=== PATIENT | male | born 1960 | race Caucasian/White ===

== ENCOUNTER 2018-03-22 00:58 | Emergency (ER) | payer OTHER, SELFPAY ==
[2018-03-22 01:03] VITALS: BP 129/67; PULSE 70; RESP 18; TEMP 36.8
[2018-03-22 01:07] VITALS: RESP 18
--- NOTE | 2018-03-22 01:53 | W.ED.GENAD ---
Discharge Plan Disposition Patient Disposition: HOME Condition: Good Discharge Details Chief Complaint: GenMedical Clinical Impression: Hip pain, right Reason For Visit: ADRIÁN Primary Care Provider: Christine Dey ED Provider: Vinicio Hyde Home Meds and New Rx's Prescriptions: Continue diclofenac sodium [Voltaren] 1 % gel 4 gm TP QID Qty: 100 RF: 1 ibuprofen 800 MG tablet 800 mg PO Q6H PRNRF: 0 clonazepam 1 MG tablet 2 mg PO PRN PRNQty: 0 RF: 0 pravastatin 40 MG tablet 40 mg PO DAILY RF: 0 metoprolol tartrate 100 MG tablet 100 mg PO BID RF: 0 multivitamin with minerals [Multiple Vitamin-Minerals] 1 EACH tablet 1 tab PO DAILY RF: 0 oxymorphone 5 MG tablet 5 mg PO Q4H PRNRF: 0 omeprazole 20 MG capsule,delayed release(DR/EC) 20 mg PO DAILY RF: 0 gabapentin 800 mg Tablet 800 mg PO TID RF: 0 hydrochlorothiazide 25 mg Tablet 25 mg PO DAILY RF: 0 oxycodone 5 mg Tablet 5 mg PO Q4H PRNRF: 0 Discharge Instructions Additional Instructions: Continue current medications and follow up at [facility] on Friday as planned. Return to ED for fever, redness, worsening pain. Referrals: [facility] [Provider Group] Christine Dey DO [Primary Care Provider] - Medical Decision Making MDM Narrative Medical decision making narrative: Patient here reporting worsening of his chronic pain. He is to go to [facility] for further testing Friday. He is on both oxymorphone and oxycodone in addition to ibuprofen and gabapentin. He has tried muscle relaxers, Lidoderm patches. He is also using Voltaren gel. Nothing seems to be helping. Tonight pain was so intense he came in by ambulance. I have discussed with him and significant other that given his chronic pain as well as his number of prescriptions including narcotics that I would not be able to send him home with anything. We did discuss acute treatment of pain here with IM Toradol and IM Dilaudid. This would at least give him some comfort over the next 6-8 hours. He was agreeable with this plan. Patient with enough relief of pain s/p IM meds that he is comfortable going home. Follow up at [facility] Friday as planned. Return to ED for fever, redness, worse pain. Medical Records Medical records reviewed: Yes I reviewed the patient's medical records. HPI - General Adult General Mode of arrival: EMS. Date/Time Provider Initiated Documentation: 03/22/18 01:52. Limitations to Documentation: no limitations. Information obtained by: patient and family. HPI Narrative: Patient presents to the ED by ambulance with acute exacerbation of chronic right hip pain. Patient is being followed by primary care in [place] and here as well as orthopedics at [facility]. He has had worsening bilateral hip pain right greater than left over the last 4-5 months. He has had injections. He is on both oxymorphone and oxycodone at this point. He is also on ibuprofen, gabapentin and Voltaren gel. Over the last few days the pain is got into the knee. There has been no fever, chills, erythema, rashes. There has been no new injuries. Pain woke him up tonight and despite taking his medications did not get better. He therefore came in to ED by ambulance for evaluation. Related Data Home Medications Medication Instructions Recorded Confirmed metoprolol tartrate 100 mg PO BID 10/01/14 03/22/18 multivitamin with minerals 1 tab PO DAILY 10/01/14 03/22/18 [Multiple Vitamin-Minerals] oxymorphone 5 mg PO Q4H PRN 10/01/14 03/22/18 pravastatin 40 mg PO DAILY 10/01/14 03/22/18 omeprazole 20 mg PO DAILY 11/04/14 03/22/18 ibuprofen 800 mg PO Q6H PRN tab-cap 09/19/16 03/22/18 clonazepam 2 mg PO PRN PRN #0 tab-cap 02/13/18 03/22/18 gabapentin 800 mg PO TID 03/22/18 03/22/18 hydrochlorothiazide 25 mg PO DAILY 03/22/18 03/22/18 oxycodone 5 mg PO Q4H PRN 03/22/18 03/22/18 Previous Rx's Medication Instructions Recorded diclofenac 1 % topical gel 4 gm TP QID #100 gm 03/19/18 Allergies Allergy/AdvReac Type Severity Reaction Status Date / Time No Known Allergies Allergy Unverified 03/22/18 01:10 General Stated Complaint: GenMedical ROSMERY: 4 Review of Systems Constitutional Denies chills, Denies fever(s) and Denies headache(s) ENT Denies headache(s) Cardiovascular Denies chest pain, Denies syncope and Denies dyspnea Respiratory Denies cough and Denies dyspnea Gastrointestinal Denies abdominal pain and Denies vomiting Musculoskeletal Reports back pain, Reports arthralgias and Denies numbness Integumentary/Breasts Denies erythema and Denies rash Neurologic Denies syncope, Denies headache(s), Denies focal weakness and Denies numbness PFSH Family History Mother Diabetes Heart failure Dementia Father No problems noted. Sister Diabetes Sister No problems noted. Brother Mental disorder Brother No problems noted. Medical History Chronic back pain HLD (hyperlipidemia) HTN (hypertension) Social History adopted: No foster care: No current occupational status: retired pets and animals: Yes pets and animals: cat(s), dog(s) and turtle(s) Smoking/Tobacco Use Status: Current every day tobacco type: cigars per week: 4 alcohol intake: current alcohol intake frequency: 0-2 drinks per day substance use type: does not use seatbelt use: always helmet use: No water heater temp set < 120 deg: Yes working smoke detector in home: Yes fire extinguisher in home: Yes carbon monox detector in home: Yes firearms in home: Yes firearms unloaded and locked: Yes victim of physical abuse: No victim of emotional abuse: No victim of sexual abuse: No Surgical History Cholecystectomy (~1979) Trigger Finger release (10/11/16) back fusion (11/09/12) back surgery (11/05/05) back surgery (11/17/07) back surgery (11/08/09) Exam Const General: cooperative and no acute distress Nutritional Appearance: obese Orientation: alert and oriented x3 Cardio Pulses: normal peripheral pulses Skin General skin exam: no erythema Rashes: no rashes Neuro General: alert, oriented x3, moves all extremities, no focal motor deficits and CN's II-XI intact bilaterally Sensory Exam: no sensory deficits noted Extrem General: normal to inspection and no edema Right lower extremity: normal to inspection, hip/thigh Details: abnormal ROM Details: pain with active ROM during and pain with passive ROM during and knee Details: normal to inspection and normal ROM Course Vital Signs Temperature 98.3 F 03/22/18 01:03 Pulse 70 03/22/18 01:03 Respiratory Rate 03/22/18 01:03 Blood Pressure 129/67 03/22/18 01:03 Temperature 98.3 F 03/22/18 01:03 Pulse 70 03/22/18 01:03 Respiratory Rate 03/22/18 01:07 Blood Pressure 129/67 03/22/18 01:03
--- NOTE | 2018-03-22 02:13 | ED.GENADUL_ITS ---
Discharge Plan Disposition Patient Disposition: HOME Condition: Good Discharge Details Chief Complaint: GenMedical Clinical Impression: Hip pain, right Reason For Visit: ADRIÁN Primary Care Provider: Christine Dey ED Provider: Vinicio Hyde Home Meds and New Rx's Prescriptions: Continue diclofenac sodium [Voltaren] 1 % gel 4 gm TP QID Qty: 100 RF: 1 ibuprofen 800 MG tablet 800 mg PO Q6H PRNRF: 0 clonazepam 1 MG tablet 2 mg PO PRN PRNQty: 0 RF: 0 pravastatin 40 MG tablet 40 mg PO DAILY RF: 0 metoprolol tartrate 100 MG tablet 100 mg PO BID RF: 0 multivitamin with minerals [Multiple Vitamin-Minerals] 1 EACH tablet 1 tab PO DAILY RF: 0 oxymorphone 5 MG tablet 5 mg PO Q4H PRNRF: 0 omeprazole 20 MG capsule,delayed release(DR/EC) 20 mg PO DAILY RF: 0 gabapentin 800 mg Tablet 800 mg PO TID RF: 0 hydrochlorothiazide 25 mg Tablet 25 mg PO DAILY RF: 0 oxycodone 5 mg Tablet 5 mg PO Q4H PRNRF: 0 Discharge Instructions Additional Instructions: Continue current medications and follow up at [facility] on Friday as planned. Return to ED for fever, redness, worsening pain. Referrals: [facility] [Provider Group] Christine Dey DO [Primary Care Provider] - Medical Decision Making MDM Narrative Medical decision making narrative: Patient here reporting worsening of his chronic pain. He is to go to [facility] for further testing Friday. He is on both oxymorphone and oxycodone in addition to ibuprofen and gabapentin. He has tried muscle relaxers, Lidoderm patches. He is also using Voltaren gel. Nothing seems to be helping. Tonight pain was so intense he came in by ambulance. I have discussed with him and significant other that given his chronic pain as well as his number of prescriptions including narcotics that I would not be able to send him home with anything. We did discuss acute treatment of pain here with IM Toradol and IM Dilaudid. This would at least give him some comfort over the next 6-8 hours. He was agreeable with this plan. Patient with enough relief of pain s/p IM meds that he is comfortable going home. Follow up at [facility] Friday as planned. Return to ED for fever, redness, worse pain. Medical Records Medical records reviewed: Yes I reviewed the patient's medical records. HPI - General Adult General Mode of arrival: EMS . Date/Time Provider Initiated Documentation: 03/22/18 01:52 . Limitations to Documentation: no limitations . Information obtained by: patient and family . HPI Narrative: Patient presents to the ED by ambulance with acute exacerbation of chronic right hip pain. Patient is being followed by primary care in [place] and here as well as orthopedics at [facility]. He has had worsening bilateral hip pain right greater than left over the last 4-5 months. He has had injections. He is on both oxymorphone and oxycodone at this point. He is also on ibuprofen, gabapentin and Voltaren gel. Over the last few days the pain is got into the knee. There has been no fever, chills, erythema, rashes. There has been no new injuries. Pain woke him up tonight and despite taking his medications did not get better. He therefore came in to ED by ambulance for evaluation. Related Data Home Medications Medication Instructions Recorded Confirmed metoprolol tartrate 100 mg PO BID 10/01/14 03/22/18 multivitamin with minerals 1 tab PO DAILY 10/01/14 03/22/18 [Multiple Vitamin-Minerals] oxymorphone 5 mg PO Q4H PRN 10/01/14 03/22/18 pravastatin 40 mg PO DAILY 10/01/14 03/22/18 omeprazole 20 mg PO DAILY 11/04/14 03/22/18 ibuprofen 800 mg PO Q6H PRN tab-cap 09/19/16 03/22/18 clonazepam 2 mg PO PRN PRN #0 tab-cap 02/13/18 03/22/18 gabapentin 800 mg PO TID 03/22/18 03/22/18 hydrochlorothiazide 25 mg PO DAILY 03/22/18 03/22/18 oxycodone 5 mg PO Q4H PRN 03/22/18 03/22/18 Previous Rx's Medication Instructions Recorded diclofenac 1 % topical gel 4 gm TP QID #100 gm 03/19/18 Allergies Allergy/AdvReac Type Severity Reaction Status Date / Time No Known Allergies Allergy Unverified 03/22/18 01:10 General Stated Complaint: GenMedical ROSMERY: 4 Review of Systems Constitutional Denies chills, Denies fever(s) and Denies headache(s) ENT Denies headache(s) Cardiovascular Denies chest pain, Denies syncope and Denies dyspnea Respiratory Denies cough and Denies dyspnea Gastrointestinal Denies abdominal pain and Denies vomiting Musculoskeletal Reports back pain, Reports arthralgias and Denies numbness Integumentary/Breasts Denies erythema and Denies rash Neurologic Denies syncope, Denies headache(s), Denies focal weakness and Denies numbness PFSH Family History Mother Diabetes Heart failure Dementia Father No problems noted. Sister Diabetes Sister No problems noted. Brother Mental disorder Brother No problems noted. Medical History Chronic back pain HLD (hyperlipidemia) HTN (hypertension) Social History adopted: No foster care: No current occupational status: retired pets and animals: Yes pets and animals: cat(s), dog(s) and turtle(s) Smoking/Tobacco Use Status: Current every day tobacco type: cigars per week: 4 alcohol intake: current alcohol intake frequency: 0-2 drinks per day substance use type: does not use seatbelt use: always helmet use: No water heater temp set < 120 deg: Yes working smoke detector in home: Yes fire extinguisher in home: Yes carbon monox detector in home: Yes firearms in home: Yes firearms unloaded and locked: Yes victim of physical abuse: No victim of emotional abuse: No victim of sexual abuse: No Surgical History Cholecystectomy (~1979) Trigger Finger release (10/11/16) back fusion (11/09/12) back surgery (11/05/05) back surgery (11/17/07) back surgery (11/08/09) Exam Const General: cooperative and no acute distress Nutritional Appearance: obese Orientation: alert and oriented x3 Cardio Pulses: normal peripheral pulses Skin General skin exam: no erythema Rashes: no rashes Neuro General: alert, oriented x3, moves all extremities, no focal motor deficits and CN's II-XI intact bilaterally Sensory Exam: no sensory deficits noted Extrem General: normal to inspection and no edema Right lower extremity: normal to inspection, hip/thigh Details: abnormal ROM Details: pain with active ROM during and pain with passive ROM during and knee Details: normal to inspection and normal ROM Course Vital Signs Temperature 98.3 F 03/22/18 01:03 Pulse 70 03/22/18 01:03 Respiratory Rate 03/22/18 01:03 Blood Pressure 129/67 03/22/18 01:03 Temperature 98.3 F 03/22/18 01:03 Pulse 70 03/22/18 01:03 Respiratory Rate 03/22/18 01:07 Blood Pressure 129/67 03/22/18 01:03
[2018-03-22] MEDS: HYDROmorphone 2 MG/ML VIAL 1 MG IM (02:19)
[2018-03-22] MEDS: Ketorolac 30 MG/ML VIAL IM (02:20)
== END 2018-03-22 03:09 | disposition home or self-care (01) ==
LOC: ER 03:13
PROVIDERS: Emergency Provider Emergency Medicine; PCP Student in an Organized Health Care Education/Training Program
DX: M25.551 Pain in right hip (principal); G89.29 Other chronic pain; I10 Essential (primary) hypertension
CPT/HCPCS: 96372; 99284; J1885

== ENCOUNTER 2018-08-24 10:10 | Outpatient (CLI) | payer OTHER, SELFPAY ==
[2018-08-24 11:27] LABS: ALT 25 U/L (12-78); AST 20 U/L (15-37); Alkaline Phosphatase 57 U/L (46-116); BUN 15 mg/dL (7-18); Bilirubin, Total 0.4 mg/dL (0.2-1.0); CREATININE 1.09 mg/dL (0.70-1.30); Calcium 8.9 mg/dL (8.5-10.1); Chloride 101 mmol/L (98-107); Cholesterol 170 mg/dL (50-200); Glucose 91 mg/dL (70-100); HDL Cholesterol 36 mg/dL (40-60); LDL CHOLESTEROL 110 mg/dL (<100); Sodium 139 mmol/L (136-145); Total Protein 7.6 g/dL (6.4-8.2); Triglyceride 163 mg/dL (30-150)
== END 2018-08-24 10:30 ==
PROVIDERS: PCP Student in an Organized Health Care Education/Training Program; Visit Provider Family Medicine
DX: E78.5 Hyperlipidemia, unspecified (principal); I10 Essential (primary) hypertension
CPT/HCPCS: 36415; 80053; 80061; 83721

== ENCOUNTER 2019-01-15 10:12 | Outpatient (CLI) | payer OTHER, SELFPAY ==
--- NOTE | 2019-01-15 09:03 | DI.RAD_ITS ---
SYMPTOMS/DIAGNOSIS: BILATERAL HIP PAIN BILATERAL HIPS AND PELVIS: Comparison is 09/25/17. The patient is now status post right total hip replacement. The orthopedic hardware appears in good position. The left hip is well maintained and stable. Postsurgical changes are seen in the lower lumbar spine. The sacroiliac joints and symphysis pubis are intact. The soft tissues are unremarkable. IMPRESSION: No acute abnormality.
== END 2019-01-15 10:32 ==
PROVIDERS: Referring Provider Student in an Organized Health Care Education/Training Program; Visit Provider Student in an Organized Health Care Education/Training Program
DX: M25.551 Pain in right hip (principal); M25.552 Pain in left hip; Z96.641 Presence of right artificial hip joint; M87.052 Idiopathic aseptic necrosis of left femur; I10 Essential (primary) hypertension
CPT/HCPCS: 20610; 73521; 99203; 99214; J1040

== ENCOUNTER → 2019-02-19 08:57 | Outpatient (BNVA) | payer OTHER, SELFPAY | PROVIDERS: PCP Student in an Organized Health Care Education/Training Program; Visit Provider Student in an Organized Health Care Education/Training Program | DX: M25.551 Pain in right hip (principal); M70.61 Trochanteric bursitis, right hip; M25.552 Pain in left hip; Z98.890 Other specified postprocedural states; I10 Essential (primary) hypertension | CPT/HCPCS: 99213 ==

== ENCOUNTER 2019-03-12 02:44 | Outpatient (CLI) | payer OTHER, SELFPAY ==
--- NOTE | 2019-03-12 09:53 | DI.CT_ITS ---
SYMPTOMS/DIAGNOSIS: ANTERIOR GROIN PAIN AFTER RIGHT TOTAL HIP ARTHROPLASTY, Z79.[address]: CT examination of the pelvis was performed utilizing multislice acquisition and multiplanar reconstruction. Note is made of Nickerson rods in place at L4-5. No pelvic mass or adenopathy. Unremarkable appearance of the appendix. No soft tissue abscess or mass identified. Total hip joint replacement noted in position on the right. Components appear well seated. No CT evidence of loosening or other significant process.
--- NOTE | 2019-03-12 09:53 | DI.NM_ITS ---
SYMPTOMS/DIAGNOSIS: ANTERIOR GROIN PAIN S/P RIGHT TOTAL HIP ARTHROPLASTY, Z96.641 THREE-PHASE BONE SCAN: Three-phase bone scan was performed with intravenous infusion of 25.3 mCi of technetium 99 labelled methylene diphosphonate. Whole body imaging shows mildly increased uptake over the lumbar region posteriorly at what appears to be the L4-5 level, corresponding to Nickerson rods at this level. There is a total hip joint replacement on the right and there is minimally increased uptake adjacent to the femoral and acetabular components. No significant focal increase in uptake to suggest loosening or infection. CONCLUSION: Essentially negative bone scan as described above.
== END 2019-03-12 03:04 ==
PROVIDERS: PCP Student in an Organized Health Care Education/Training Program; Visit Provider Student in an Organized Health Care Education/Training Program
DX: Z96.641 Presence of right artificial hip joint (principal); R10.31 Right lower quadrant pain
CPT/HCPCS: 73700; 78315

== ENCOUNTER 2019-03-22 09:23 | Outpatient (CLI) | payer OTHER, SELFPAY ==
[2019-03-22 11:07] LABS: C-Reactive Protein 0.24 mg/dL (0.0-0.3); ESR 12 mm/hr (1-20)
== END 2019-03-22 09:43 ==
PROVIDERS: PCP Student in an Organized Health Care Education/Training Program; Visit Provider Student in an Organized Health Care Education/Training Program
DX: Z96.641 Presence of right artificial hip joint (principal); T84.84XA Pain due to internal orthopedic prosthetic devices, implants and grafts, initial encounter; I10 Essential (primary) hypertension
CPT/HCPCS: 36415; 85652; 99213; 86140

== ENCOUNTER → 2019-06-28 08:20 | Outpatient (BNVA) | payer OTHER, SELFPAY | PROVIDERS: PCP Student in an Organized Health Care Education/Training Program; Referring Provider Student in an Organized Health Care Education/Training Program; Visit Provider Student in an Organized Health Care Education/Training Program | DX: Z96.642 Presence of left artificial hip joint (principal); T84.84XS Pain due to internal orthopedic prosthetic devices, implants and grafts, sequela; M16.12 Unilateral primary osteoarthritis, left hip | CPT/HCPCS: 99213 ==

== ENCOUNTER 2019-07-22 00:51 | Outpatient (CLI) | payer OTHER, SELFPAY ==
--- NOTE | 2019-07-22 14:36 | DI.RAD_ITS ---
EXAM: RF JOINT INJECTION FLUORO GUID CLINICAL HISTORY: LT HIP PAIN, M25.552, LT HIP INJECTION. TECHNIQUE: 2D and realtime digital imaging was performed. COMPARISON: No exams were available for comparison FINDINGS: Fluoroscopy was provided for Dr. Barlow for guidance while performing a right hip injection. Carlos lucas see procedure note for details. Fluoro time: 1.0 second
--- NOTE | 2019-07-22 14:43 | W.PROCNOTE ---
Date of service: 07/22/19 Time of Service: 14:43 Procedure Note Date of procedure: 07/22/19 Procedure: Left Hip Injection with Fluoroscopic Guidance Surgeon/Proceduralist/Physician: Ignacio Barlow Procedure Diagnosis: Left Hip Osteoarthritis Procedure Indications: Subhash has had persistent pain of the LEFT hip and groin. Noninvasive measures have been tried. To serve as both diagnostic and therapeutic, an injection under fluoroscopy was recommended. I had discussed the risks of the procedure and the patient elected to proceed. Procedure Description: Subhash was greeted in the flouroscopy room. The correct side was identified and the consent was reviewed with the patient and signed. The patient was then placed in the supine position on the fluoroscopy table. The LEFT hip was then prepped with Chloraprep. The anterolateral injection starting point was identiifed by bony landmarks and fluoroscopy. The skin and soft tissue in the tract of the injection was anesthetized with 1% Lidocaine. A spinal needle was then inserted deep into the hip joint at the level of the lateral femoral neck under fluoroscopic guidance. A small amount of Omnipaque solution was injected to confirm intraarticular placement. Once confirmed, the hip was injected with 6cc of 0.5% Bupivicaine and 80mg of Depo-Medrol. A bandaid was placed on the injection site. The patient tolerated the procedure well and noted improvement in pre-injection pain.
[2019-07-22] MEDS: Omnipaque 300 MG/ML 10 ML BTL IJ (14:45)
[2019-07-22] MEDS: methylPREDNISolone ACETATE 80 MG/ML VIAL IM (14:46)
[2019-07-22] MEDS: Bupivacaine 0.5% Pres-Free 10 ML VIAL 6 ML IJ (14:46)
== END 2019-07-22 01:11 ==
PROVIDERS: PCP Student in an Organized Health Care Education/Training Program; Visit Provider Student in an Organized Health Care Education/Training Program
DX: M25.552 Pain in left hip (principal); M16.12 Unilateral primary osteoarthritis, left hip
CPT/HCPCS: 20610; 77002; J1040

== ENCOUNTER 2019-08-20 03:37 | Outpatient (CLI) | payer OTHER, SELFPAY ==
--- NOTE | 2019-08-20 09:51 | DI.RAD_ITS ---
EXAM: XR HIP RT COMPLETE AND AP PELVIS INDICATION: TROCHANTERIC BURSITIS RT HIP, M70.61. COMPARISON: XR hip pelvis adult Bl from 01/15/2019 TECHNIQUE: 2D digital imaging was performed. FINDINGS: There are stable postsurgical changes of a right total hip replacement. There is no evidence of hard sanchez failure. The bones are intact. Postsurgical changes are seen in the lower lumbar spine. The s oft tissues are unremarkable.
== END 2019-08-20 03:57 ==
PROVIDERS: PCP Student in an Organized Health Care Education/Training Program; Visit Provider Family Medicine
DX: M70.61 Trochanteric bursitis, right hip (principal); Z96.641 Presence of right artificial hip joint
CPT/HCPCS: 73502

== ENCOUNTER → 2019-09-03 07:53 | Outpatient (BNVA) | payer OTHER, SELFPAY | PROVIDERS: PCP Student in an Organized Health Care Education/Training Program; Referring Provider Student in an Organized Health Care Education/Training Program; Visit Provider Student in an Organized Health Care Education/Training Program | DX: M16.12 Unilateral primary osteoarthritis, left hip (principal); T84.84XS Pain due to internal orthopedic prosthetic devices, implants and grafts, sequela; Z96.643 Presence of artificial hip joint, bilateral; Z98.890 Other specified postprocedural states; I10 Essential (primary) hypertension | CPT/HCPCS: 99212; 99213 ==

== ENCOUNTER → 2019-11-15 08:29 | Outpatient (BNVA) | payer OTHER, SELFPAY | PROVIDERS: PCP Student in an Organized Health Care Education/Training Program; Referring Provider Student in an Organized Health Care Education/Training Program; Visit Provider Student in an Organized Health Care Education/Training Program | DX: M16.12 Unilateral primary osteoarthritis, left hip (principal); T84.84XS Pain due to internal orthopedic prosthetic devices, implants and grafts, sequela; Z96.642 Presence of left artificial hip joint; M87.052 Idiopathic aseptic necrosis of left femur; I10 Essential (primary) hypertension | CPT/HCPCS: 99213 ==

== ENCOUNTER 2019-12-23 11:06 | Outpatient (CLI) | payer OTHER, SELFPAY ==
--- NOTE | 2019-12-23 10:50 | DI.RAD_ITS ---
EXAM: XR PELVIS AP CLINICAL HISTORY: PRE OP. TECHNIQUE: 2D digital imaging was performed. COMPARISON: CR XR hip pelvis adult Bl from 01/15/2019 CR XR HIP RT COMPLETE AP PELVIS from 08/20/2019 FINDINGS: A right total hip prosthesis is again noted. There are degenerative changes of the left hip with vivi nt space narrowing, periarticular sclerosis and subchondral cysts in the superior acetabulum. IMPRESSION: Moderate degenerative changes of the left hip. Unremarkable right hip prosthesis.. DATA REPOSITORY: RADIATION DOSE DELIVERED:
== END 2019-12-23 11:26 ==
PROVIDERS: PCP Student in an Organized Health Care Education/Training Program; Referring Provider Student in an Organized Health Care Education/Training Program; Visit Provider Physician Assistant
DX: M16.12 Unilateral primary osteoarthritis, left hip (principal); Z96.641 Presence of right artificial hip joint; Z01.818 Encounter for other preprocedural examination
CPT/HCPCS: 72170

== ENCOUNTER 2019-12-31 01:39 | Outpatient (CLI) | payer OTHER, SELFPAY ==
[2019-12-31 10:07] LABS: HCT 41.5 % (40.0-50.0); HGB 14.4 g/dL (13.5-17.5); Mean Corp. HGB Concentration 34.7 g/dL (32.0-36.0); Mean Corpuscular Hemoglobin 31.4 pg (27.0-33.0); Mean Corpuscular Volume 90.6 fL (80-95); Platelet Count 197 x1000/uL (130-400); RBC 4.58 m/cumm (4.50-6.00); RBC Distribution Width 12.3 % (11.8-14.1); White Blood Cell Count 7.35 k/cumm (4.4-10.8)
[2019-12-31 11:07] LABS: Anion Gap 9.5 mmol/L (3-11); BUN 14 mg/dL (7-18); CO2 24.5 mmol/L (21.0-32.0); Calcium 9.2 mg/dL (8.5-10.1); Chloride 101 mmol/L (98-107); Glucose 88 mg/dL (74-106); Potassium 4.5 mmol/L (3.5-5.1); Sodium 135 mmol/L (136-145)
[2019-12-31 22:41] LABS: COVID-19 RT-PCR UVMMC Result Negative (Negative)
== END 2019-12-31 01:59 ==
PROVIDERS: PCP Student in an Organized Health Care Education/Training Program; Visit Provider Student in an Organized Health Care Education/Training Program
DX: M25.551 Pain in right hip (principal); M16.12 Unilateral primary osteoarthritis, left hip; Z01.818 Encounter for other preprocedural examination; Z01.812 Encounter for preprocedural laboratory examination; Z03.818 Encounter for observation for suspected exposure to other biological agents ruled out
CPT/HCPCS: 36415; 80048; 85027; 86850; 86900; 86901; U0003

== ENCOUNTER 2020-01-04 06:07 | Observation (INO) | payer OTHER, SELFPAY ==
[2020-01-04] VITALS (13 sets, daily range): BP systolic 89–129; BP diastolic 59–78; PULSE 55–71; RESP 11–18; TEMP 35.6–36.7; O2SAT 93–99
[2020-01-04] MEDS: Celecoxib 200 MG CAP 400 MG PO (06:43)
[2020-01-04] MEDS: Acetaminophen 500 MG TAB 1000 MG PO ×3 (06:44→20:02)
[2020-01-04] MEDS: Lactated Ringers 1,000 ML 80 ML IV ×2 (07:00→12:16)
[2020-01-04] MEDS: ceFAZolin 2 GM/50 ML BAG IVPB (08:13)
--- NOTE | 2020-01-04 08:15 | DI.RAD_ITS ---
EXAM: XR HIP LT IN OR CLINICAL HISTORY: DJD right hip TECHNIQUE: 2D and realtime digital imaging was performed. CONTRAST MATERIAL: Refer to procedure report. COMPARISON: CR XR PELVIS AP from 12/23/2019 FINDINGS: Fluoroscopy was provided for Dr. Barlow during the performance of a placement of a left hip replac ement. Please refer to the procedure report for complete details. Fluoro time: 37.8 seconds IMPRESSION: RADIATION DOSE DELIVERED:
[2020-01-04] MEDS: Ketorolac 30 MG/ML VIAL (09:31)
[2020-01-04] MEDS: Bupivacaine 0.25% Pres-Free 30 ML VIAL (09:32)
[2020-01-04] MEDS: fentaNYL 100 MCG/2 ML VIAL IVP ×2 (10:51→11:08)
[2020-01-04] MEDS: oxyCODONE 5 MG TAB PO ×2 (12:15→15:38)
--- NOTE | 2020-01-04 13:37 | NUR.NOTE ---
Patient A&Ox 3. Pt. vitals stable. Orientated to room. See shift assessment. Continue to monitor.
[2020-01-04] MEDS: Gabapentin 400 MG CAP 800 MG PO ×2 (13:50→20:01)
[2020-01-04] MEDS: ceFAZolin 1 GM/50 ML BAG IVPB ×2 (13:50→21:48)
--- NOTE | 2020-01-04 15:11 | W.PM.OP ---
Date of service: 01/04/20 Time of Service: 10:11 Operative Note Operative Note DATE OF PROCEDURE: 01/04/20 PRE-OP DIAGNOSIS: Left Hip Osteoarthritis POST-OP DIAGNOSIS: same PROCEDURE: Left Anterior Total Hip Arthroplasty SURGEON: Ignacio Barlow OPERATION MANAGER: Dalia Seth OPERATION MANAGER: Bryan Cruz ANESTHESIA: spinal ESTIMATED BLOOD LOSS: 400 PATHOLOGY: none sent TOURNIQUET TIME: 0 COMPLICATIONS: None Patient was transported to: PACU Patient's condition: stable Implants: 1. Depuy Hamlin Acetabular Component, 52mm 2. Depuy Acetabular Liner, [id number] 3. Depuy Corail High Offset Femoral Stem, Size 9 4. Depuy Altrx Ceramic Femoral Head, Size 32+1mm Indications: I have seen Subhash in clinic for symptoms of hip arthritis, confirmed with radiographic findings. Subhash has exhausted nonoperative methods and was having significant limitations in daily function and desired better function and less pain. I discussed the technical details of a hip replacement. I explained the risks of the procedure to include, but not limited to, bleeding, infection, pain, stiffness, fracture, damage to nerves and vessels, damage to muscles and tendons, loosening, instability, leg length inequality, need for repeat procedure, blood clot and cardiopulmonary demise. Despite these risks, Subhash elected to proceed. Findings: There was some chondromalacia of the superior femoral head. The bone of the head was soft and penetrable with a freer elevator. Procedure Description: Subhash was greeted in the preoperative holding area where the correct side was identified and marked. The consent was reviewed with the patient and signed. The history and physical was updated. All questions were answered. Subhash was taken back to the operating room. A spinal anesthestic was then administered. The patient was placed into the supine position on the operating room table. The patient was then positioned onto the ARCH table. Both feet were wrapped with Webrill cotton wrap along with Coban. The feet were placed in specialized boots for the ARCH table, well seated within the boot and secured. SCDs were applied. The patient was then slid down onto a peroneal post and the nonoperative leg was secured in a leg ellis attached to the table. The operative side was placed into the ARCH table attachment and bed height and positioning was secured. A preoperative AP pelvis was obtained to serve as a reference for determining leg lengths. Prophylactic antibiotics in the form of Cefazolin were administered. 1g of Tranxemic Acid was given intravenously within 30 minutes of incision. The left leg was then prepped with Chloraprep and draped in a standard fashion. A second prep with Chloraprep was performed prior to placement of a shower-curtain type drape with Iodine impregnated skin protection. A timeout to confirm correct identity, side and site, procedure, allergies, anesthesia, and medical concerns was performed. An obliquely oriented incision was made starting lateral to the ASIS and running distal over the Tensor Fascia Ana (TFL) muscle belly toward the fibular head, approximately 10cm. The skin and soft tissue was dissected sharply, through Amando?s fascia, and to the fascia of the TFL. With the fascia and superior border of the IT band identified, the fascia was incised with a new knife just above any perforators from the IT band. The TFL muscle belly was bluntly dissected away from the fascia and moved laterally. The fat between TFL and rectus was identified to ensure the dissection was not within the TFL. Blunt dissection created space between abductors and the capsule and retractor was placed over the lateral femoral neck. The fibers of the rectus femoris tendon were identified and these were freed from the anterior capsule. A second cobra retractor was placed around the medial femoral neck. The TFL was further retracted laterally to show the deep fascia. Careful dissection through this layer identified three main crossing vessels of the lateral femoral circumflex. These were cauterized in multiple locations and then cut without any noticeable bleeding. The TFL was further released bluntly from the deep fascia to expose anterior hip capsule and fat The Diego orthopaedic retractor was then placed beneath the TFL and against sartorius and medial soft tissues to protect and retract the soft tissues. A T-capsulotomy was then performed starting at the superior lateral acetabulum and moving distally to the intertrochanteric ridge. These capsular flaps were tagged with a No. 1 Ethibond and elevated from within. The capsular flaps were released to the shoulder of the lateral neck and to the lesser trochanter to give excellent visualization of the proximal femur. A neck osteotomy was performed using an oscillating saw based on preoperative templates. This cut started in the shoulder and of the lateral neck and exited medially. The saw was at all times directed medially to avoid injury to the greater trochanter. 6cm of traction was applied to the leg and the osteotomy opened. The femoral head was removed with a corkscrew, making sure to protect the TFL on its exit. This was measured on the back table to determing the starting reamer size. Portions of the rectus obscuring visualization were minimally elevated off the superior acetabulum. An anterior retractor was placed over the anterior wall between capsule and labrum and attached to the Gripper retraction system. A posterior retractor was placed similarly. This provided excellent visualization. The contents of the cotyloid fossa were removed with electrocautery and the labrum was removed with a knife. There was a notable floor osteophyte. Acetabular reaming began with a 48mm reamer. This first reaming was directed anterior to posterior and medial to get down to the true floor. This was inspected and reamed until the true floor was reached. The anterior retractor was then released and entry and exit was provided by traction on the capsular flaps. I then reamed sequentially up to a 52mm reamer where good fit was obtained. The larger reamers were oriented based on anatomical reference of the anterior and lateral lópez to ensure proper abduction and anteversion. Positioning and size was confirmed with the fluoroscopy. A 52mm Depuy Hamlin acetabular component was selected. The acetabulum was reamed around the periphery with the selected acetabular size to prevent a rim fit. The deep tissues were irrigated. The acetabular component was then impacted in a position of about 40-45 degrees of abduction and 15-20 degrees of anteversion, using the patient?s anatomy as the ultimate landmark. Fluoroscopy was used to confirm this. There was excellent advanced solutions architect of the acetabular component and the inserting handle was removed. The acetabular liner, Depuy [id number] polyethylene liner, was inserted and lined up with the tines of the acetabular component. There was no soft tissue interposition. The liner was then impacted into position and confirmed to be well-seated. A portion of the lois-articular cocktail was then injected around the acetabulum into the capsule and periosteum. This cocktail consisted of 50cc of 0.25% Bupivicaine and 20cc of Exparel, expanded to a total of 120cc. Traction was released from the femur. The leg was rotated to 120 degrees. Any remaining medial capsule was released until the lesser trochanter was easily palpable. A Nur retractor was placed medially. The lateral capsule was further released into the shoulder to allow access to the greater trochanter. A Nur retractor was placed over the greater trochanter which allowed the trochanter to flip in front of the capsule for excellent exposure. The leg was brought down into maximal extension and 20 degrees of adduction while ensuring there was no impingement on the acetabulum. Any remnant capsule within the trochanter was released. Piriformis and obturator externis were identified and protected. There was excellent access to the proximal femur. The lateral neck remnant was removed with a rongeur. A blunt canal probe was used to identify the canal and trajectory for later broaching. A box osteotome initiated the broach course. A small curved rasp and a curved curette were used to work laterally. Broaching then began with a size 8 Corail broach. This was inserted manually around the trochanter and into the canal before mallet blows. The broach was seated to a few millimeters below the cut level based on the neck cut and the preoperative template. Sequential broaching was continued with the WEPOWER Eco pneumatic broaching device until a tight fit was obtained with good rotational control of the femur. A trial 125 standard neck was inserted along with a +5 trial head. The leg was brought out of extension and adduction and then reduced with traction and internal rotation. The leg was minimally stable anteriorly in a position of 30 degrees of extension and 90 degrees of external rotation. Fluoroscopy was used to ensure there was no fracture and the stem was seated well. Leg lengths were checked with an AP pelvis and pelvic reference points. MeetMeTix navigation system was used to confirm appropriate positioning and leg length and offset. This demonstrated that we were short and under-offset. However, the high offset would level the leg lengths and leave the offset unchnaged. Therefore, this was trialed and showed improved stability and appropriate moravian of leg length and offset. Once content with the desired offset and leg lengths, the leg was brought back into extension, external rotation and adduction. The periosteum and surrounding tissue was injected with remaining portion of the lois-articular cocktail. The proximal femur was irrigated as well as the deep tissues. The Depuy Corail High Offset stem, size 9, was then manually inserted into the proximal femur making sure to control rotation. It was then malleted into position with light blows, giving breaks to allow bone expansion and decrease risk of fracture. The selected Depuy Altrx Ceramic Head, size 32+1mm, was then placed onto the clean and dry trunnion and secured with impaction onto the tapered fit. The leg was brought back out of extension and adduction and reduced with traction and internal rotation. Stability was confirmed with no shuck at 90 degrees of external rotation and 30 degrees of extension. No impingement through range of motion arc. Final x-ray images were obtained with fluoroscopy to confirm adequate positioning and no intraoperative fracture. The deep tissues were thoroughly irrigated with Irrisept chlorhexadine solution. The second dose of TXA 1g was administered intravenously.The capsule was then reapproximated with the previously placed Ethibond sutures. The TFL fascia was finally closed with a No. 2 Stratafix, barbed suture. Deep tissues were then reapproximated with 0 Vicryl and a running 2-0 Vicryl. The skin was closed with a running 4-0 Monocryl in a subcuticular fashion. This was reinforced with skin glue. A Mepilex silver dressing was applied. At the end of the case, all counts were correct. Subhash was transferred to the hospital bed without difficulty and suffering no apparent complication. Subhash has a good prognosis. Physical therapy will start today and without restrictions, weight-bearing as tolerated. Aspirin 81mg BID will be used for DVT prophylaxis.
--- NOTE | 2020-01-04 15:17 | W.PM.DS.N ---
Date of service: 01/05/20 Time of Service: 07:47 DS: Diagnosis Discharge Diagnosis (1) Degenerative joint disease of left hip: Status: Acute (2) Avascular necrosis of bone of left hip: Status: Acute Discharge Plan Disposition Patient Disposition: HOME Condition: Good Discharge Details Reason For Visit: Left Hip AVN Admit Date/Time: 01/04/20 06:07 Admit Provider: Ignacio Barlow Attending Provider: Ignacio Barlow Primary Care Provider: Christine Dey [facility] Course Hospital Course: Patient was admitted to the medical/surgical floor following the procedure. The surgery was tolerated well without any notable medical, surgical, or anesthetic complications. Mobilization began postoperatively. Subhash was voiding spontaneously. Vitals were stable. Physical therapy worked with the patient and was cleared for discharge home. No acute medical issues. Pain was controlled on oral regimen. Home Meds and New Rx's Prescriptions: New celecoxib 200 mg capsule 200 mg PO BID PRN (Reason: pain) Qty: 60 RF: 1 aspirin 81 mg tablet,delayed release (DR/EC) 81 mg PO BID Qty: 60 RF: 0 acetaminophen 500 mg tablet 1,000 mg PO Q8H PRN (Reason: pain) Qty: 90 RF: 3 docusate sodium [Colace] 100 mg capsule 100 mg PO BID PRNQty: 10 RF: 0 oxycodone 10 mg tablet 10 mg PO Q4H PRNQty: 24 RF: 0 Narcan 4 mg/actuation spray,non-aerosol 4 mg CARLA Q2M PRNQty: 2 RF: 0 Continued diazepam [Valium] 5 mg tablet 5 mg PO BID PRNRF: 0 gabapentin 800 mg tablet 800 mg PO TID PRNRF: 0 nicotine (polacrilex) 4 mg lozenge 4 mg BC Q4H PRNRF: 0 metoprolol succinate 25 mg tablet extended release 24 hr 25 mg PO DAILY Qty: 90 RF: 3 pravastatin 40 MG tablet 40 mg PO DAILY RF: 0 multivitamin with minerals [Multiple Vitamin-Minerals] 1 EACH tablet 1 tab PO DAILY RF: 0 oxymorphone 5 MG tablet 5 mg PO Q4H PRNRF: 0 omeprazole 20 MG capsule,delayed release(DR/EC) 20 mg PO DAILY RF: 0 Discontinued omega-3 fatty acids [Fish Oil Concentrate] 1,000 mg capsule 1,000 mg PO DAILY RF: 0 ibuprofen 800 MG tablet 800 mg PO Q6H PRNRF: 0 Discharge Instructions Additional Instructions: Dr. Barlow's Total Hip Discharge Instructions Activity: The most important activity is to walk. You should try to take short walks a few times a day. You have no restrictions on movement or positioning, but do not try to force what you do. You will find some stiffness and weakness with hip flexion (lifting your knee). Do not try to strengthen this too early, continue to practice walking and stairs and this will come. - Outpatient physical therapy can be helpful to help return you to a normal gait and improve your flexibility and strength. This can start around 2 weeks. For most patients, it?s not necessary. Usually this is determined at the time of discharge or at the first post-operative visit. - You should wear the TASHA hose on both legs for 2 weeks. You may remove those at night. These prevent blood pooling and swelling. Dressing: Keep the surgical dressing in place for at least one week, although it may stay in place untill follow-up. It may get wet after 3 days but avoid soaking the dressing. If it gets wet, just lightly pat dry. Most people prefer to cover the dressing with some ClingWrap, Saran Wrap, to keep it dry. After the first week it may be removed if desired and then replaced with light gauze and tape or nothing. It is important to always keep some gauze or the dressing between skin folds, especially when you are sitting, so the incision is not folded over on itself at the belly fold. Medications: - You should take Tylenol and an anti-inflammatory Celebrex as your primary pain control medications - You have been prescribed a stronger pain medication Oxycodone for breakthrough pain, take as needed as prescribed. - You will continue your stomach acid reduction agent Omeprazole to help reduce stomach acid and reflux. - You will be taking [Aspirin 81mg twice a day] for DVT prevention unless instructed otherwise. - If you have constipation you should take Colace or Miralax (both [id number]). It takes most people 3-4 days to have a bowel movement. Follow-up: 2 weeks. If you have any acute concerns or questions, please do not hesitate to contact the office at [phone]. You may contact Dr. Barlow with any questions after hours through the hospital at [phone] or on his cell phone at [phone]. Referrals: Ignacio Barlow MD [ [facility] STAFF PHYSICIAN] - Activity:: Activity as Tolerated Equipment/Supplies:: Walker Diet:: As Tolerated Discharge Orders Discharge Orders: Discharge Order (Routine); Ordered 01/05/20 Ordered By: Ignacio Barlow DS: Summary Status at Discharge Functional status at discharge: uses cane/walker Overall status at discharge: patient is progressing back to baseline Mental Status: mental status grossly normal Speech and Movement: speech and movement normal Mood: congruent mood Affect: normal affect Exam Psych Mental Status: mental status grossly normal Speech and Movement: speech and movement normal Mood: congruent mood Affect: normal affect DS: Data Vitals/I&O Vitals and I&O: Vital Signs Temperature 35.7 C L 01/04/20 14:51 Temperature Source Tympanic 01/04/20 14:51 Pulse 60 01/04/20 14:51 Pulse Rhythm Regular 01/04/20 13:23 Respiratory Rate 18 01/04/20 14:51 Respiratory Effort Non-Labored 01/04/20 13:23 Respiratory Depth Normal 01/04/20 13:23 Respiratory Pattern Normal 01/04/20 13:23 Blood Pressure 111/68 01/04/20 14:51 Pulse Oximetry 98 01/04/20 14:51 Respiratory End-tidal CO2 35 01/04/20 11:35 Oxygen Delivery Method Room Air 01/04/20 14:51 Oxygen Flow Rate 0 01/04/20 14:51 Pain Level 7 01/04/20 14:51 Comment 01/04/20 13:19 Intake & Output 01/03/20 01/04/20 01/04/20 23:59 11:59 23:59 Intake Total 970 / 1031.333 61.333 / 1031.333 Output Total 400 / 400 Balance 570 / 631.333 61.333 / 631.333 Weight 87.09 kg Intake: IV 970 / 1031.333 61.333 / 1031.333 Output: Estimated Blood Loss 400 / 400 Other: Emesis Description None [facility] Medical History Chronic back pain Degenerative joint disease of left hip (Acute) HLD (hyperlipidemia) HTN (hypertension) Superficial dehiscence of wound (Acute) Mostly irritating, draining, but significant drainage @ distal section of surg site warranting wound evaluation. Stopped triple-antibiotic in case of aggrav; trial silvadene/gauze. Surgical History back fusion (11/09/12) back surgery (11/05/05) back surgery (11/17/07) back surgery (11/08/09) Cholecystectomy (~1979) [place] of total [place]Ac[place]04/2018[place] [facility] [place] [facility] [place] Finger release (10/11/16) RIGHT RING FINGER/DR. POWELL Family History Mother , AD at age 84. Diabetes Heart failure Dementia Father No problems noted. Sister Diabetes Sister , Hypothermia at age 43. No problems noted. Brother Mental disorder Brother No problems noted. Social History Smoking/Tobacco Use Status: Current every day Tobacco Type: cigars Per week: 4 Alcohol Intake: current Alcohol Intake frequency: 0-2 drinks per day Drug use: Never Substance use type: does not use Adopted: No Foster care: No Pets and animals: Yes Pets and animals: cat(s), dog(s) and turtle(s) Current gender identity: male Duration: > 90 minutes/day Seatbelt use: always Helmet use: No Water heater temp set <120 deg: Yes Working smoke detector in home: Yes Fire extinguisher in home: Yes Carbon monox detector in home: Yes Firearms in home: Yes Firearms unloaded and locked: Yes Do you feel safe in your relationship?: Yes Victim of physical abuse: No Victim of emotional abuse: No Victim of sexual abuse: No
--- NOTE | 2020-01-04 17:23 | PT.INIE ---
Date of service: 01/04/20 Time of Service: 16:00 PT Notes Visit Reasons: Left Hip AVN Inpatient Physical Therapy Evaluation Date: 01/04/20 Referring Doctor: Dr. Barlow PT Orders: PT CONSULT: S/p left ZULLY Precautions: Fall, standard Patient Profile/Admitting Diagnosis: Patient admitted postop day 0 left anterior ZULLY. PMHX: Chronic back pain Degenerative joint disease of left hip (Acute) HLD (hyperlipidemia) HTN (hypertension) Superficial dehiscence of wound (Acute) Mostly irritating, draining, but significant drainage @ distal section of surg site warranting wound evaluation. Stopped triple-antibiotic in case of aggrav; trial silvadene/gauze. Surgical History back fusion (11/09/12) back surgery (11/05/05) back surgery (11/17/07) back surgery (11/08/09) Cholecystectomy (~1979) History of total [place] of [place]Ac[place]04/2018[place] [facility] [place]inger [place] (10/11/16) Social History/Home Situation: Patient lives with his significant other in a single-family home with 3 steps to enter. He has a walker at home. He is self-employed, drives independently, and typically ambulates without assistive device. Equipment Owned/DME: 4 WW Subjective: Subhash states that he is feeling good. He is anxious to get up and walking. Objective: General Observation: Resting in bed with IV in LUE. No additional lines Mental Status: A and O x3 Pain: Manageable ROM: Right Upper Extremity: WFL Left Upper Extremity: WFL Right Lower Extremity: WFL Left Lower Extremity: Functionally, patient demonstrates left hip flexion to 90 degrees or greater. Knee motion is WFL. Strength: Right Upper Extremity: WFL Left Upper Extremity: WFL Right Lower Extremity: WFL Left Lower Extremity: Quads 3/5 or greater. Patient is able to pump ankles and wiggle toes independently. Sensation: Sensation is intact distally Bed Mobility/Transfers: Supine?sit: Supervision with HOB at 35 degrees Sit?supine: Supervision, HOB 35 degrees Sit?stand: Supervision Stand?sit: Supervision Gait: Patient ambulates 120 feet x 2 with FW W, full weightbearing, supervision. Stairs: Patient manages therapeutic stairs, 4 inches, up and down 3 steps with bilateral rails and CGA. He required minimal cueing for technique and sequencing, with good verbalization of understanding and excellent carry over. Balance: Static Sitting: Normal Dynamic Sitting: Normal Static Standing: Good Dynamic Standing: Fair Special Tests: Mobility Limitations Standardized Measure [facility] AM-PAC 6 clicks Basic Mobility Inpatient Short Form: Raw Score: 19 CMS Score: 42% deficit Informed Consent/Education: Patient instructed in purpose of PT consult and plan of care. Assessment: Patient is a 59 year old male referred to physical therapy services with the diagnosis of left hip OA, currently day 0 status post left ZULLY. Patient presents with clinical signs and symptoms consistent with postoperative status, as demonstrated by the following impairment level findings: 1. Decreased functional strength left lower extremity 2. Decreased dynamic balance 3. Decreased activity tolerance Impairments are contributing to the following functional limitations: 1. Decreased independence with ambulation 2. Decreased independence with stair management Patient is assessed as a Low 19788 complexity based on the following: History: 59-year-old male presenting postop day 0 after ZULLY. He presents with clinical signs of transportation assistant with postoperative status. Complicating factors include chronic pain and reportedly poor outcomes after right ZULLY. Examination: Functional limitations as noted above Presentation: Stable Decision Making: Low complexity Goals: Goals X1 week 1. Supine-Sit: independent 2. Sit-Supine : independent 3. Sit-Stand : independent 4. Stand-Sit : independent 5. Bed-Chair : independent 6. Chair-Bed : independent 7. Gait : supervision x 150' 8. Stairs : supervision x 3 steps Plan of Care/Treatment Plan: 1-2x/day, 7 days/week x 1 week. Plan of care has been reviewed with the HAUNTED HISTORY TOUR GUIDE providing the service under Physical Therapy direction. Initiate Physical Therapy intervention for strengthening, bed mobility, transfers, gait, stairs, balance training, use of assistive device. DISCHARGE RECOMMENDATIONS: Resume outpatient PT as recommended by surgeon. No equipment needs anticipated. Return home with support from significant other. TREATMENT CODE/TIME: 45 minutes (4:15-5:00), [id number] Felicity Dupont PT, DPT [facility]
[2020-01-04] MEDS: HYDROmorphone 2 MG/ML VIAL IVP (18:10)
[2020-01-04] MEDS: Aspirin E.C. 81 MG TABEC PO (20:00)
[2020-01-04] MEDS: Celecoxib 200 MG CAP PO (20:01)
[2020-01-04] MEDS: Pravastatin 40 MG TAB PO (20:03)
[2020-01-04] MEDS: HYDROmorphone 2 MG/ML VIAL 0.5 MG IVP (21:46)
[2020-01-05] MEDS: Lactated Ringers 1,000 ML 80 ML IV (00:08)
[2020-01-05] MEDS: HYDROmorphone 2 MG/ML VIAL 0.5 MG IVP ×4 (00:09→09:14)
[2020-01-05 03:20] VITALS: BP 119/71; PULSE 87; RESP 18; TEMP 37; O2SAT 95
[2020-01-05] MEDS: ceFAZolin 1 GM/50 ML BAG IVPB (06:43)
[2020-01-05 07:37] VITALS: BP 124/69; PULSE 67; RESP 17; TEMP 37.4; O2SAT 98
[2020-01-05] MEDS: Gabapentin 400 MG CAP 800 MG PO (07:41)
[2020-01-05] MEDS: Aspirin E.C. 81 MG TABEC PO (07:41)
[2020-01-05] MEDS: Multivitamin w/Minerals TAB 1 TAB PO (07:41)
[2020-01-05] MEDS: Acetaminophen 500 MG TAB 1000 MG PO (07:42)
[2020-01-05] MEDS: Docusate Sodium 100 MG CAP PO (07:42)
[2020-01-05] MEDS: Metoprolol CR 25 MG TABCR PO (07:42)
[2020-01-05] MEDS: Omeprazole 20 MG CAPCR PO (07:42)
[2020-01-05] MEDS: Celecoxib 200 MG CAP PO (07:42)
--- NOTE | 2020-01-05 09:12 | PT.INTREAT ---
Date of service: 01/05/20 Time of Service: 09:12 PT Notes Visit Reasons: Left Hip AVN Inpatient Physical Therapy Treatment Note [facility] Date: 01/05/20 PRECAUTIONS: WBAT L SUBJECTIVE: Subhash reports that he is ready to go home today, and that he feels good this morning. OBJECTIVE: PAIN: Patient complains of R hip discomfort with ther ex BED MOBILITY/TRANSFERS Supine-sit: I with HOB at 10 degrees Sit-supine: I with HOB at 10 degrees Sit-stand: S Stand-sit: S Bed-Chair: S Chair-bed: S GAIT Assistive Device: FWW Weight bearing: WBAT L Assist: S Distance: 200' Deviation: Step through gait pattern, appropriate pacing THEREX: Patient completed a lower extremity strengthening and stabilization program, in a supine position, as per flow sheet. Patient ends with ice pack to L hip. STAIRS: Up/down 6?4 and 4?6 using B rails and a step to pattern with supervision ASSESSMENT: Patient tolerated session well with minimal complaints of R hip discomfort with ther ex. Patient was able to tolerate a progression in gait distance with FWW support and supervision. Patient would benefit from continued gait training for improved gait mechanics and FWW management, as well as continued ther ex for improved lower extremity strength. PLAN: Continue with PTs POC TREATMENT CODE/TIME: 25 minutes; [id number], [id number]
[2020-01-05] MEDS: Normal Saline Flush 10 ML SYR IV (09:15)
--- NOTE | 2020-01-05 12:19 | PT.INDS ---
Date of service: 01/05/20 Time of Service: 12:19 PT Notes Visit Reasons: L HIP DJD Inpatient Physical Therapy Discharge Summary Dates: 01/05/2020 Dates of Service: 01/04/2020 and 01/05/2020 This is a clinical summary of care provided on the duration of dates listed above. No charge was made in the completion of this documentation. Referring Doctor: Dr. Barlow PT Orders: PT CONSULT: S/p left ZULLY Precautions: Fall, standard Patient Profile/Admitting Diagnosis: Patient admitted postop day 0 left anterior ZULLY. PMHX: Medical History Chronic back pain Degenerative joint disease of left hip (Acute) HLD (hyperlipidemia) HTN (hypertension) Superficial dehiscence of wound (Acute) Mostly irritating, draining, but significant drainage @ distal section of surg site warranting wound evaluation. Stopped triple-antibiotic in case of aggrav; trial silvadene/gauze. Surgical History back fusion (11/09/12) back surgery (11/05/05) back surgery (11/17/07) back surgery (11/08/09) Cholecystectomy (~1979) History of total replacement of right [place]Ac[place]04[place]2018[place] [facility] [place]inger [place] (10/11/16) Social History/Home Situation: Patient lives with his significant other in a single-family home with 3 steps to enter. He has a walker at home. He is self-employed, drives independently, and typically ambulates without assistive device. Equipment Owned/DME: 4 WW Subjective: NT Objective: General Observation: NT Mental Status: NT Pain: NT ROM: Right Upper Extremity: WFL Left Upper Extremity: WFL Right Lower Extremity: WFL Left Lower Extremity: Functionally, patient demonstrates left hip flexion to 90 degrees or greater. Knee motion is WFL. Strength: Right Upper Extremity: WFL Left Upper Extremity: WFL Right Lower Extremity: WFL Left Lower Extremity: Quads 3/5 or greater. Patient is able to pump ankles and wiggle toes independently. Sensation: Intact as to pain and light pressure in B LE Bed Mobility/Transfers: Supine?sit: Independent Sit?supine: Independent Sit?stand: Supervision Stand?sit: Supervision Gait: 200 feet using front wheeled walker with WBAT on left supervision. 4 inch steps and four 6 inch steps while holding onto bilateral rails with step to gait pattern with supervision. Balance: Static Sitting: Normal Dynamic Sitting: Normal Static Standing: Good Dynamic Standing: Fair Assessment: Patient goes home today requiring supervision assist for all mobility ADL performance with a front wheeled walker. He will bed from outpatient physical therapy services in all to regain prior level of function without an assistive device. Goals: Goals X1 week 1. Supine-Sit: independent MET 2. Sit-Supine : independent MET 3. Sit-Stand : independent NOT MET 4. Stand-Sit : independent NOT MET 5. Bed-Chair : independent NOT MET 6. Chair-Bed : independent NOT MET 7. Gait : supervision x 150' MET 8. Stairs : supervision x 3 steps MET DISCHARGE RECOMMENDATIONS: Resume outpatient PT as recommended by surgeon. No equipment needs anticipated. Return home with support from significant other. TREATMENT CODE/TIME: NC. Thank you very much for this referral. Isabel Hu PT, DPT, CLT [facility] Inpatient PT at [place], [place]
== END 2020-01-05 09:23 | disposition home or self-care (01) ==
LOC: PDS 10:49 → MS 10:50
PROVIDERS: Admitting Provider Student in an Organized Health Care Education/Training Program; PCP Student in an Organized Health Care Education/Training Program; Visit Provider Student in an Organized Health Care Education/Training Program
PROC: 0SRB04A Replacement of Left Hip Joint with Ceramic on Polyethylene Synthetic Substitute, Uncemented, Open Approach (ICD-10-PCS; CPT 27130; principal; 2020-01-04 08:15)
DX: M16.12 Unilateral primary osteoarthritis, left hip (principal); M25.552 Pain in left hip; Z96.642 Presence of left artificial hip joint; I10 Essential (primary) hypertension; F43.10 Post-traumatic stress disorder, unspecified; E78.5 Hyperlipidemia, unspecified
CPT/HCPCS: 27130; 97110; 97161; 97530; NC; 73501; J0690; J1885; J2001; J2250; J2405; J3010

== ENCOUNTER 2020-01-20 12:12 | Outpatient (CLI) | payer OTHER, SELFPAY ==
--- NOTE | 2020-01-20 11:45 | DI.RAD_ITS ---
EXAM: XR HIP LT COMPLETE AP PELVIS CLINICAL HISTORY: 1st post op TECHNIQUE: COMPARISON: CR XR PELVIS AP from 12/23/2019 FINDINGS: Two views were obtained. There are total hip joint replacements in position bilaterally. The compon ents appear well seated. No other significant bony abnormality seen. IMPRESSION:
== END 2020-01-20 12:32 ==
PROVIDERS: PCP Student in an Organized Health Care Education/Training Program; Referring Provider Student in an Organized Health Care Education/Training Program; Visit Provider Student in an Organized Health Care Education/Training Program
DX: Z96.643 Presence of artificial hip joint, bilateral (principal); Z47.1 Aftercare following joint replacement surgery; I10 Essential (primary) hypertension
CPT/HCPCS: 73502

== ENCOUNTER → 2020-02-21 10:47 | Outpatient (BNVA) | payer OTHER, SELFPAY | PROVIDERS: PCP Student in an Organized Health Care Education/Training Program; Referring Provider Student in an Organized Health Care Education/Training Program; Visit Provider Student in an Organized Health Care Education/Training Program | DX: Z96.642 Presence of left artificial hip joint (principal); Z47.1 Aftercare following joint replacement surgery; I10 Essential (primary) hypertension ==

== ENCOUNTER 2020-04-20 11:51 | Outpatient (CLI) | payer OTHER, SELFPAY ==
--- NOTE | 2020-04-20 11:30 | DI.RAD_ITS ---
EXAM: XR HIP LT AP LAT ONLY CLINICAL HISTORY: new left hip pain after fall. TECHNIQUE: 2D digital imaging was performed. COMPARISON: No exams were available for comparison FINDINGS: BONES: There are stable post operative changes present. No new fracture or dislocation. JOINTS: The joint spaces are well maintained. No joint effusion is present. SOFT TISSUE: Normal. IMPRESSION: Stable postoperative changes. DATA REPOSITORY: RADIATION DOSE DELIVERED:
== END 2020-04-20 12:11 ==
PROVIDERS: PCP Student in an Organized Health Care Education/Training Program; Referring Provider Student in an Organized Health Care Education/Training Program; Visit Provider Student in an Organized Health Care Education/Training Program
DX: M25.552 Pain in left hip (principal); W54.1XXA Struck by dog, initial encounter; Z96.642 Presence of left artificial hip joint; I10 Essential (primary) hypertension
CPT/HCPCS: 99214; 73502

== ENCOUNTER 2020-05-20 10:31 | Emergency (ER) | payer OTHER, SELFPAY ==
[2020-05-20 11:05] VITALS: BP 136/85; PULSE 75; RESP 18; TEMP 36.6; O2SAT 97
--- NOTE | 2020-05-20 11:17 | ED.GENADUL_ITS ---
Discharge Plan Disposition Patient Disposition: HOME Condition: Stable Discharge Details Clinical Impression: Cellulitis of face, Tooth ache Primary Care Provider: Christine Dey ED Provider: Petra Leach Home Meds and New Rx's Prescriptions: New penicillin V potassium 500 mg tablet 500 mg PO BID 10 Days Qty: 20 RF: 0 Continued diazepam [Valium] 5 mg tablet 5 mg PO BID PRNRF: 0 gabapentin 800 mg tablet 800 mg PO TID PRNRF: 0 nicotine (polacrilex) 4 mg lozenge 4 mg BC Q4H PRNRF: 0 metoprolol succinate 25 mg tablet extended release 24 hr 25 mg PO DAILY Qty: 90 RF: 3 pravastatin 40 MG tablet 40 mg PO DAILY RF: 0 multivitamin with minerals [Multiple Vitamin-Minerals] 1 EACH tablet 1 tab PO DAILY RF: 0 omeprazole 20 MG capsule,delayed release(DR/EC) 20 mg PO DAILY RF: 0 Narcan 4 mg/actuation spray,non-aerosol 4 mg CARLA Q2M PRNQty: 2 RF: 0 Discharge Instructions Instructions: Cellulitis (ED), Toothache (ED) Additional Instructions: Take antibiotic as prescribed, keep your dentist appointment as previously scheduled. Return to the ED for any worsening swelling, fever or concerns. Follow up with primary care provider in 3-5 days. Return to ED sooner if any worsening or concerns. Increase oral fluids. Please take Tylenol or Ibuprofen with food every 4-6 hours as needed for pain and swelling. Referrals: Christine Dey DO [Primary Care Provider] - Discharge Data Discharge Date/Time-TO BE ENTERED AT DEPARTURE: 05/20/20 11:34 Medical Decision Making 60-year-old male presents to the ER with chief complaint of dental carry, he states that he has had a toothache and a chipped bridge since October. He woke up this morning with increased swelling noted to right side of his face up into his right eye. He denies any fever. He does state that he tried to poke around his tooth to see if there was anything that would drain. He denies any drainage. There is erythema and swelling noted to the right side of his anterior face and lower eyelid. He does have multiple poor dentition, there is no palpable area of fluctuance surrounding the tooth. Patient given penicillin 5 mg in department. Prescription written for penicillin twice daily x10 days. Instructed to keep dental appointment as previously scheduled. Strict return instructions given including to return for any worsening swelling, fever, vomiting or any concerns. HPI General Mode of arrival: ambulatory . Date/Time Provider Initiated Documentation: 05/20/20 11:04 . Limitations to Documentation: no limitations . Information obtained by: patient . HPI Narrative: 60-year-old male presents to the ER with chief complaint of dental carry, he states that he has had a toothache and a chipped bridge since October. He woke up this morning with increased swelling noted to right side of his face up into his right eye. He denies any fever. He does state that he tried to poke around his tooth to see if there was anything that would drain. He denies any drainage. There is erythema and swelling noted to the right side of his anterior face and lower eyelid. He does have multiple poor dentition, there is no palpable area of fluctuance surrounding the tooth. Related Data Home Medications Medication Instructions Recorded Confirmed multivitamin with minerals 1 tab PO DAILY 10/01/14 05/20/20 [Multiple Vitamin-Minerals] pravastatin 40 mg PO DAILY 10/01/14 05/20/20 omeprazole 20 mg PO DAILY 11/04/14 05/20/20 diazepam 5 mg tablet 5 mg PO BID PRN 08/26/18 05/20/20 nicotine (polacrilex) 4 mg buccal 4 mg BC Q4H PRN 11/18/18 05/20/20 lozenge gabapentin 800 mg tablet 800 mg PO TID PRN tab 11/15/19 05/20/20 Narcan 4 mg CARLA Q2M PRN #2 each 01/05/20 05/20/20 metoprolol succinate 25 mg 25 mg PO DAILY #90 tab 03/09/20 05/20/20 tablet,extended release 24 hr penicillin V potassium 500 mg PO BID 10 Days #20 tab 05/20/20 Previous Rx's Medication Instructions Recorded Narcan 4 mg CARLA Q2M PRN #2 each 01/05/20 metoprolol succinate 25 mg 25 mg PO DAILY #90 tab 03/09/20 tablet,extended release 24 hr penicillin V potassium 500 mg PO BID 10 Days #20 tab 05/20/20 Allergies Allergy/AdvReac Type Severity Reaction Status Date / Time No Known Allergies Allergy Verified 05/20/20 11:07 General Stated Complaint: DentalOral ROSMERY: 3 Review of Systems All systems reviewed & are unremarkable except as noted in HPI and below ENT Ears, Nose, Mouth, and Throat: Reports dental pain, Denies dysphagia and Reports facial pain (Facial swelling) Gastrointestinal Gastrointestinal: Denies dysphagia [facility] Medical History (Updated 05/20/20 @ 11:22 by Petra Leach) Chronic back pain Degenerative joint disease of left hip HLD (hyperlipidemia) HTN (hypertension) Superficial dehiscence of wound Mostly irritating, draining, but significant drainage @ distal section of surg site warranting wound evaluation. Stopped triple-antibiotic in case of aggrav; trial silvadene/gauze. Surgical History back fusion (11/09/12) back surgery (11/05/05) back surgery (11/17/07) back surgery (11/08/09) Cholecystectomy (~1979) History of total replacement of right hip (~04/2018) [facility] [place] Status post total hip replacement, left (01/04/20) Treatment for avascular necrosis of the left hip. Trigger Finger release (10/11/16) RIGHT RING FINGER/DR. POWELL Family History Mother , AD at age 84. Diabetes Heart failure Dementia Father No problems noted. Sister Diabetes Sister , Hypothermia at age 43. No problems noted. Brother Mental disorder Brother No problems noted. Social History Smoking/Tobacco Use Status: Current every day Tobacco Type: cigars Per week: 4 Smoking risk assessment performed?: Yes Alcohol Intake: current Alcohol Intake frequency: 0-2 drinks per day Drug use: Never Substance use type: does not use Adopted: No Foster care: No Pets and animals: Yes Pets and animals: cat(s), dog(s) and turtle(s) Current gender identity: male Duration: > 90 minutes/day Seatbelt use: always Helmet use: No Water heater temp set <120 deg: Yes Working smoke detector in home: Yes Fire extinguisher in home: Yes Carbon monox detector in home: Yes Firearms in home: Yes Firearms unloaded and locked: Yes Do you feel safe at home: Yes Do you feel safe in your relationship?: Yes Victim of physical abuse: No Victim of emotional abuse: No Victim of sexual abuse: No Exam Narrative Exam Narrative: Constitutional: Alert and oriented x3. Appears stated age. Normal body habitus. Head: Normocephalic, no trauma. Eyes: Pupils PERRLA, Red reflex noted, EOM's intact. Eyelids symmetrical without lesions, discharge, or swelling. ENT: Bilateral TM's WNL, External ear normal to inspection, no mastoid TTP, swelling, or erythema, Nasal turbinates WNL, no nasal discharge. Posterior pharynx WNL, no exudate. Chest: RRR, Normal S1, S2, distal pulses intact. Resp: Lungs clear to auscultation bilaterally, no wheezes, rales, or rhonchi. Musculoskeletal: Normal gait, 5/5 strength to all four extremities. Skin: No suspicious rashes or lesions. Capillary refill less than 2 sec. Neurologic: Cranial nerves II-XII intact. Alert and oriented x 3. DTR's intact. Hematologic/Lymphatic: No ecchymosis, no lymphadenopathy. [facility] Head images: 1. Erythema and swelling Teeth and gingiva: caries and poor dentition Teeth image: 1. Absent 2. Absent 3. Broken tooth, surrounding erythema no area of fluctuance palpated Course Vital Signs Vital signs: Vital Signs Temperature 36.6 C 05/20/20 11:05 Pulse 75 05/20/20 11:05 Respiratory Rate 18 05/20/20 11:05 Blood Pressure 136/85 05/20/20 11:05 Pulse Oximetry 97 05/20/20 11:05 Temperature 36.6 C 05/20/20 11:05 Temperature Source Tympanic 05/20/20 11:05 Pulse 75 05/20/20 11:05 Respiratory Rate 18 05/20/20 11:05 Respiratory Effort Non-Labored 05/20/20 11:05 Blood Pressure 136/85 05/20/20 11:05 Pulse Oximetry 97 05/20/20 11:05 Oxygen Delivery Method Room Air 05/20/20 11:05 Oxygen Flow Rate 0 05/20/20 11:05 Pain Level 8 05/20/20 11:05
[2020-05-20] MEDS: Penicillin V POTASSIUM 500 MG TAB PO (11:22)
== END 2020-05-20 11:34 | disposition home or self-care (01) ==
PROVIDERS: Emergency Provider Registered Nurse Emergency; PCP Student in an Organized Health Care Education/Training Program
DX: L03.211 Cellulitis of face (principal); K08.89 Other specified disorders of teeth and supporting structures; I10 Essential (primary) hypertension
CPT/HCPCS: 99283; 99284

== ENCOUNTER 2020-06-13 03:41 | Outpatient (CLI) | payer OTHER, SELFPAY ==
[2020-06-16 19:20] LABS: COVID-19 RT-PCR Result NEGATIVE (Negative)
== END 2020-06-13 04:01 ==
PROVIDERS: PCP Student in an Organized Health Care Education/Training Program; Visit Provider Student in an Organized Health Care Education/Training Program
DX: Z11.59 Encounter for screening for other viral diseases (principal)
CPT/HCPCS: U0003

== ENCOUNTER 2020-08-16 02:13 | Outpatient (CLI) | payer OTHER, SELFPAY ==
--- NOTE | 2020-08-16 06:30 | DI.CT_ITS ---
EXAM: CT CHEST WO CLINICAL HISTORY: f/u R lung nodules -- [facility] CT,R91.8 TECHNIQUE: Imaging Protocol: Axial computed tomography images with coronal and sagittal reformatted images were created and reviewed CONTRAST MATERIAL: Noncontrast COMPARISON: CT CT CHEST W CONTRAST from 04/02/2020 FINDINGS: Tracheobronchial tree: Patent where visualized. Mediastinum and Karin: No dominant adenopathy or fluid collection. Pulmonary parenchyma: No consolidation . Mild emphysematous changes. Pleura: No effusion or pneumothorax. Stable 7 x 4 by 4 millimeter nodule along the minor fissure. St able rounded pleural based nodule in the posterior right lower lobe measuring 6 millimeters. A few ot her tiny nodules in the right lower lobe which are also stable. There is a stable 5 millimeter nodule in the left upper lobe. Heart: The heart is not dilated. Minimal coronary artery calcifications are seen. Aorta: Thoracic aorta non-dilated. Minimal calcification. Upper abdomen: Unremarkable. Status post cholecystectomy. Lymph nodes: Within normal limits. Bones: Mild degenerative changes. Soft tissues: Mild bilateral gynecomastia. IMPRESSION: Stable size and appearance of bilateral pulmonary nodules, the largest along the right minor fissure. If the patient is at high risk for lung cancer, a follow-up exam is recommended in 1 year. This coul d be performed as a low-dose screening CT. RADIATION DOSE DELIVERED: 785.48mGy.cm Total DLP DATA REPOSITORY: All CT scans at this facility are submitted to the National Radiology Data Registry (NRDR) Dose Index Registry (DIR) with the [employer] (A[employer]). RADIATION OPTIMIZATION: All CT scans at this facility use at least one of these dose optimization te chniques: automated exposure control; mA and/or kV adjustment per patient size (includes targeted exa ms where dose is matched to clinical indication); or iterative reconstruction.
== END 2020-08-16 02:14 ==
LOC: DI 02:14
PROVIDERS: PCP Student in an Organized Health Care Education/Training Program; Visit Provider Student in an Organized Health Care Education/Training Program
DX: R91.8 Other nonspecific abnormal finding of lung field (principal)
CPT/HCPCS: 71250

== ENCOUNTER 2020-12-26 03:18 | Outpatient (CLI) | payer OTHER, SELFPAY ==
--- NOTE | 2020-12-26 06:45 | DI.RAD_ITS ---
Exam(s) XR FOOT LT COMPLETE EXAM: XR FOOT LT COMPLETE CLINICAL HISTORY: lt foot pain, m79.672,evaluate for bony pathology TECHNIQUE: COMPARISON: No exams were available for comparison FINDINGS: Three views were obtained. Alignment appears within normal limits. No significant bony or soft tiss ue abnormality seen. Minimal Carmen attachment spurring/calcification the Achilles noted. IMPRESSION: RADIATION DOSE DELIVERED: Total DLP
[2020-12-26 08:25] LABS: Abs Immature Grans 0.03 10^3/uL (0.0-0.06); Absolute Basophil Count 0.08 10^3/uL (0.0-0.2); Absolute Eosinophil Count 0.22 10^3/uL (0.0-0.7); Absolute Lymphocyte Count 2.28 10^3/uL (1.2-3.4); Absolute Monocyte Count 0.57 10^3/uL (0.1-0.8); Absolute Neutrophil Count 4.92 10^3/uL (1.2-6.7); Eosinophils % 2.7; HCT 43.7 % (40.0-50.0); HGB 14.9 g/dL (13.5-17.5); Immature Grans % 0.4; Lymphocytes % 28.1; MCH 31.5 pg (27.0-33.0); MCHC 34.1 % (32.0-36.0); MCV 92.4 fL (80-95); MPV 8.5 fL (8.0-11.0); Neutrophils % 60.8; Nucleated RBC 0 %; Platelet Count 204 10^3/uL (130-400); RBC 4.73 10^6/uL (4.36-5.78); RDW 12.2 % (11.8-14.1); RDW-SD 41.7 fL
[2020-12-26 09:54] LABS: ALT 27 U/L (16-63); AST 19 U/L (15-37); Albumin 4.3 g/dL (3.4-5.0); Alkaline Phosphatase 68 U/L (46-116); BUN 20 mg/dL (7-18); Bilirubin, Total 0.4 mg/dL (0.2-1.0); CREATININE 1.2 mg/dL (0.70-1.30); Calcium 8.9 mg/dL (8.5-10.1); Calculated LDL 180 mg/dL (<100); Chloride 102 mmol/L (98-107); Cholesterol 249 mg/dL (<200); Glucose 111 mg/dL (74-106); HDL Cholesterol 41 mg/dL (40-60); Potassium 4.7 mmol/L (3.5-5.1); Sodium 138 mmol/L (136-145); Total Protein 7.8 g/dL (6.4-8.2); Triglyceride 143 mg/dL (<150)
== END 2020-12-26 03:19 | disposition home or self-care (01) ==
LOC: LBO 03:18
PROVIDERS: PCP Student in an Organized Health Care Education/Training Program; Visit Provider Student in an Organized Health Care Education/Training Program
DX: I10 Essential (primary) hypertension (principal); R19.7 Diarrhea, unspecified; I95.9 Hypotension, unspecified; M54.5 Low back pain; M79.672 Pain in left foot
CPT/HCPCS: 36415; 80053; 80061; 73630; 85025

== ENCOUNTER → 2021-01-18 07:56 | Outpatient (BNVA) | payer OTHER, SELFPAY | PROVIDERS: PCP Student in an Organized Health Care Education/Training Program; Referring Provider Student in an Organized Health Care Education/Training Program; Visit Provider Physician Assistant | DX: Z47.1 Aftercare following joint replacement surgery (principal); Z96.642 Presence of left artificial hip joint; M25.552 Pain in left hip | CPT/HCPCS: 99213 ==

== ENCOUNTER 2021-01-18 08:16 | Outpatient (CLI) | payer OTHER, SELFPAY ==
--- NOTE | 2021-01-18 08:00 | DI.RAD_ITS ---
Exam(s) XR HIP LT AP LAT ONLY EXAM: XR HIP LT AP LAT ONLY CLINICAL HISTORY: annual f/u L ZULLY. TECHNIQUE: 2D digital imaging was performed. COMPARISON: CR XR HIP LT AP LAT ONLY from 04/20/2020 FINDINGS: Position alignment of the components of the left hip prosthesis remain stable with no fracture or loo sening evident. No radiographic change from the prior study listed above. IMPRESSION: DATA REPOSITORY: RADIATION DOSE DELIVERED:
== END 2021-01-18 08:17 | disposition home or self-care (01) ==
LOC: DIORS 08:17
PROVIDERS: PCP Student in an Organized Health Care Education/Training Program; Referring Provider Student in an Organized Health Care Education/Training Program; Visit Provider Physician Assistant
DX: Z96.642 Presence of left artificial hip joint (principal)
CPT/HCPCS: 73502

== ENCOUNTER 2021-01-25 01:42 | Outpatient (CLI) | payer OTHER, SELFPAY ==
--- NOTE | 2021-01-25 13:32 | DI.MRI_ITS ---
Exam(s) MR CERVICAL SPINE WO EXAM: MR CERVICAL SPINE WO CLINICAL HISTORY: CERVICAL RADICULOPATHY,M54.12,NECK AND ARM NUMBNESS TECHNIQUE: Multiplanar multisequence MRI of the cervical spine was performed without intravenous con trast. COMPARISON: No exams were available for comparison FINDINGS: CERVICOMEDULLARY JUNCTION: Intact with no evidence of cerebellar tonsillar ectopia. No obvious abnor mality of the odontoid process. No evidence of Chiari 1 malformation. CERVICAL SPINAL CORD: There is no abnormal signal in the cervical spinal cord and no evidence of foca l cord atrophy nor focal cord swelling. OSSEOUS:There are no cervical fractures evident. No significant osseous lesions in the cervical vert ebrae. There is, however, mild reversal of the Normal cervical curvature which most probably related to muscle spasm. INDIVIDUAL LEVELS: C2-3: No disc herniation nor central canal stenosis. No foraminal stenosis. No facet arthropathy. C3-4: Mild disc space narrowing. Central subligamentous small disc protrusion which indents the thec al sac but not the spinal cord. Central canal dimensions are lower normal. There are mild degenerat jose antonio changes in the facets bilaterally. Mild bilateral foraminal stenosis. C4-5: This level exhibits advanced disc space narrowing and anterior osseous lipping. Posteriorly th ere is no prominent disc herniation but right-sided Luschka joint osteophytes results in some narrowi ng of the exiting right neural foramen.Lesser narrowing of the exiting left neural foramen. Central canal dimensions lower normal. Both facet joints at this level appear unremarkable. C5-6: This level exhibits moderate-advanced disc space narrowing. No disc herniation but small left- sided Luschka joint osteophytes resulting in mild foraminal stenosis. There is no foraminal stenosis on the opposite-left side. Central canal dimensions are lower normal. No facet arthropathy evident at this level nor significant foraminal stenosis. C6-7: Advanced disc space narrowing. Anterior osteophytes. No disc herniation. Small bilateral Orquidea chka joint osteophytes. Mild bilateral foraminal stenosis. Mild facet degenerative changes. C7-T1: No disc herniation nor central canal stenosis. No facet arthropathy.No foraminal stenosis. IMPRESSION: 1. Multilevel chronic degenerative disc disease as described individually above. There is no dominan t disc herniation and no prominent central spinal canal stenosis. However, there is some foraminal s tenosis as described above. There are mild facet arthropathy changes. DATA REPOSITORY:
== END 2021-01-25 02:02 ==
PROVIDERS: PCP Student in an Organized Health Care Education/Training Program; Visit Provider Family Medicine
DX: M50.11 Cervical disc disorder with radiculopathy, high cervical region (principal); M48.02 Spinal stenosis, cervical region; M47.812 Spondylosis without myelopathy or radiculopathy, cervical region; R20.0 Anesthesia of skin
CPT/HCPCS: 72141

== ENCOUNTER → 2021-02-19 09:50 | Outpatient (BNVA) | payer OTHER, SELFPAY | PROVIDERS: PCP Student in an Organized Health Care Education/Training Program; Referring Provider Student in an Organized Health Care Education/Training Program; Visit Provider Nurse Practitioner Adult Health | DX: G56.02 Carpal tunnel syndrome, left upper limb (principal); G56.22 Lesion of ulnar nerve, left upper limb; I10 Essential (primary) hypertension | CPT/HCPCS: 95886; 95909; 99203; 99215 ==

== ENCOUNTER → 2021-05-14 13:25 | Outpatient (BNVA) | payer MEDICARE, SELFPAY | PROVIDERS: PCP Student in an Organized Health Care Education/Training Program; Referring Provider Student in an Organized Health Care Education/Training Program; Visit Provider Student in an Organized Health Care Education/Training Program | DX: G56.22 Lesion of ulnar nerve, left upper limb (principal); G56.02 Carpal tunnel syndrome, left upper limb | CPT/HCPCS: 99213 ==

== ENCOUNTER 2021-06-20 01:22 | Outpatient (CLI) | payer MEDICARE, SELFPAY ==
[2021-06-20 09:55] LABS: HCT 43.2 % (40.0-50.0); HGB 14.7 g/dL (13.5-17.5); MCH 30.9 pg (27.0-33.0); MCV 90.9 fL (80-95); MPV 8.6 fL (8.0-11.0); Platelet Count 199 10^3/uL (130-400); RBC 4.75 10^6/uL (4.36-5.78); RDW 12.1 % (11.8-14.1); RDW-SD 40.7 fL; WBC 7.81 10^3/uL (4.4-10.8)
[2021-06-20 11:55] LABS: ALT 33 U/L (16-63); AST 21 U/L (15-37); Albumin 4.2 g/dL (3.4-5.0); Alkaline Phosphatase 62 U/L (46-116); Anion Gap 11.8 mmol/L (3-11); BUN 16 mg/dL (7-18); Bilirubin, Total 0.3 mg/dL (0.2-1.0); CO2 25.2 mmol/L (21.0-32.0); Calcium 8.9 mg/dL (8.5-10.1); Calculated LDL 87 mg/dL (<100); Chloride 103 mmol/L (98-107); Cholesterol 151 mg/dL (<200); Glucose 107 mg/dL (74-106); HDL Cholesterol 41 mg/dL (40-60); Potassium 4.6 mmol/L (3.5-5.1); Sodium 140 mmol/L (136-145); Total Protein 7.6 g/dL (6.4-8.2); Triglyceride 117 mg/dL (<150)
[2021-06-23 09:27] LABS: Hemoglobin A1C 5.4 % (<5.7)
== END 2021-06-20 01:23 | disposition home or self-care (01) ==
LOC: LBO 01:23
PROVIDERS: PCP Student in an Organized Health Care Education/Training Program; Visit Provider Family Medicine
DX: G56.22 Lesion of ulnar nerve, left upper limb (principal); I10 Essential (primary) hypertension; N28.9 Disorder of kidney and ureter, unspecified; R73.09 Other abnormal glucose; E78.5 Hyperlipidemia, unspecified
CPT/HCPCS: 36415; 80053; 80061; 85027; 83036

== ENCOUNTER 2021-07-06 01:48 | Outpatient (CLI) | payer MEDICARE, SELFPAY ==
[2021-07-06 10:29] LABS: Source Nasal/Nares
[2021-07-06 16:48] LABS: COVID-19 PCR Negative (Negative)
== END 2021-07-06 01:49 | disposition home or self-care (01) ==
LOC: LBO 01:49
PROVIDERS: PCP Student in an Organized Health Care Education/Training Program; Visit Provider Student in an Organized Health Care Education/Training Program
DX: Z20.822 Contact with and (suspected) exposure to COVID-19 (principal)
CPT/HCPCS: 87635

== ENCOUNTER 2021-07-09 12:54 | Day surgery (SDC) | payer MEDICARE, SELFPAY ==
[2021-07-09 13:42] VITALS: BP 129/109; PULSE 72; RESP 16; TEMP 36.4; O2SAT 96
--- NOTE | 2021-07-09 14:02 | HPE_ITS ---
Assessment and Plan Assessment and plan (1) Left carpal tunnel syndrome: Status: Acute (2) Cubital tunnel syndrome on left: Status: Acute Assessment and plan: Plan: Educated patient on surgery covering surgical technique, recovery process, benefits and risks including but not limited to risk of infection, blood clot, damage to soft tissue/blood vessels/nerves in detail. After discussion patient gives verbal understanding of risks and elects to proceed with scheduling surgery. Patient had opportunity to have questions answered to their satisfaction. Patient will continue to be scheduled for left carpal tunnel release and cubital tunnel release with possible anterior transposition with Dr. Barlow. History of Present Illness Narrative: Mr. Olivares is a 61-year-old male who presents to hospital for left carpal and cubital surgery. He has been experiencing symptoms along his left upper extremity for over 8 months. Due to his symptoms he was referred to Neurology where he was diagnosed with both left carpal and cubital tunnel syndromes. Given the severity of his symptoms despite conservative measures he was offered and elected to proceed with surgical intervention. Review of Systems Cardiovascular Cardiovascular: Denies chest pain, Denies rapid heart rate, Denies irregular heart rhythm, Denies dyspnea, Denies dyspnea on exertion and Denies slow heart rate Respiratory Respiratory: Denies cough, Denies dyspnea, Denies dyspnea on exertion and Denies wheezing Allergic/Immunologic Allergic/Immunologic: Denies wheezing PFSH All Active Problems Chronic back pain (Chronic) Dr. Thompson (PCP in [place]) prescribes chronic pain medications for this pt Essential hypertension (Chronic) Hx HTN, low recently .. STOPPED HCTZ 01/2019 .. Lowered BB, stay @ 25mg Hyperlipidemia (Chronic) History of right hip replacement (Chronic) Superficial dehiscence of wound (Acute) Mostly irritating, draining, but significant drainage @ distal section of surg site warranting wound evaluation. Stopped triple-antibiotic in case of aggrav; trial silvadene/gauze. Hypotension (Acute 09/2018) New issue .. decreasing BB . Stay at 25mg 02/10/19 Diarrhea (Acute 03/28/15) Trochanteric bursitis, right hip (Acute) Injected: 01/15/2019 History of total replacement of right hip (Acute ~04/2018) [facility] [place] Pain in hip region after total hip replacement (Acute) 09/01/19-repeat steroid injections. Ana Garvey MD [facility] [place] Status post total hip replacement, left (Acute 01/04/20) Treatment for avascular necrosis of the left hip. Lung nodule, multiple (Chronic) Stable per 08/2020 CT. 04/02/[address] [facility] [address]: recommend 3-6 month f/u. 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 and/or transverse arch pathology. [ ] XR Left carpal tunnel syndrome (Acute) Cubital tunnel syndrome on left (Acute) Elevated glucose (Acute) adding a1c Medical History Anesthesia Per pt. states in the past he has woken up violently, states at night he takes valium to shut his brain off and that works well for him. Pt. states it is related to PTSD from . Chronic back pain Degenerative joint disease of left hip HLD (hyperlipidemia) HTN (hypertension) PTSD (post-traumatic stress disorder) Surgical History back fusion (11/09/12) back surgery (11/05/05) back surgery (11/17/07) back surgery (11/08/09) Cholecystectomy (~1979) Trigger Finger release (10/11/16) RIGHT RING FINGER/DR. POWELL Family History Mother , AD at age 84. Diabetes Heart failure Dementia Father No problems noted. Sister Diabetes Sister , Hypothermia at age 43. No problems noted. Brother Mental disorder Brother No problems noted. Social History Smoking/Tobacco Use Status: Current every day Smoking risk assessment performed?: Yes Alcohol Intake: current Alcohol Intake frequency: 0-2 drinks per day Drug use: Never Substance use type: does not use Adopted: No Foster care: No Pets and animals: Yes Pets and animals: cat(s), dog(s) and turtle(s) Current gender identity: male Duration: > 90 minutes/day Seatbelt use: always Helmet use: No Water heater temp set <120 deg: Yes Working smoke detector in home: Yes Fire extinguisher in home: Yes Carbon monox detector in home: Yes Firearms in home: Yes Firearms unloaded and locked: Yes Do you feel safe at home: Yes Do you feel safe in your relationship?: Yes Victim of physical abuse: No Victim of emotional abuse: No Victim of sexual abuse: No Meds Allergies and Home Medications Allergies Allergy/AdvReac Type Severity Reaction Status Date / Time No Known Allergies Allergy Verified 07/09/21 13:32 Home Medications Medication Instructions Recorded Confirmed Type multivitamin with minerals 1 tab PO DAILY 10/01/14 07/04/21 History [Multiple Vitamin-Minerals] pravastatin 40 mg PO DAILY 10/01/14 06/15/21 History diazepam 5 mg tablet 5 mg PO BID PRN 08/26/18 07/09/21 History nicotine (polacrilex) 4 mg buccal 4 mg BC Q4H PRN 11/18/18 07/09/21 History lozenge gabapentin 800 mg tablet 800 mg PO TID PRN tab 11/15/19 07/09/21 History Narcan 4 mg CARLA Q2M PRN #2 each 01/05/20 07/04/21 Rx metoprolol succinate 25 mg 25 mg PO DAILY #90 tab 12/15/20 07/09/21 Rx tablet,extended release 24 hr ibuprofen 800 mg tablet 800 mg PO TID 02/19/21 07/09/21 History omeprazole 20 mg capsule,delayed 20 mg PO BID cap 02/19/21 07/09/21 History release oxymorphone 5 mg tablet 5 mg PO Q4H PRN 02/19/21 07/09/21 History atorvastatin 40 mg PO DAILY 07/09/21 07/09/21 History sertraline 50 mg PO DAILY 07/09/21 07/09/21 History Exam Const General: cooperative and no acute distress Resp Effort & Inspection: normal respiratory effort and able to speak in complete sentences Auscultation: clear to auscultation bilaterally, no rales, no rhonchi and no wheezes Cardio Heart Sounds: S1 normal, S2 normal, no murmurs, no rubs and no other Results Last Vital Signs Temp 36.4 C L 07/09/21 13:42 Pulse 72 07/09/21 13:42 Resp 16 07/09/21 13:42 BP 129/109 H 07/09/21 13:42 Pulse Ox 96 07/09/21 13:42
--- NOTE | 2021-07-09 14:08 | W.PM.DSUDISC ---
Documented by User: Dalia Arambulaxon 07/09/21 16:11 Discharge Plan Disposition Patient Disposition: HOME Condition: Good Discharge Details Reason For Visit: Left carpal and cubital tunnel syndromes Attending Provider: Ignacio Barlow Primary Care Provider: Christine Dey Home Meds and New Rx's Prescriptions: New acetaminophen 500 mg tablet 500 mg PO Q6H PRN (Reason: pain) Qty: 60 RF: 2 ibuprofen 600 mg tablet 600 mg PO TID PRN (Reason: pain) Qty: 60 RF: 0 oxycodone 5 mg tablet 5 mg PO Q6H PRN (Reason: severe post-operative pain) Qty: 8 RF: 0 Continued diazepam [Valium] 5 mg tablet 5 mg PO BID PRNRF: 0 oxymorphone 5 mg tablet 5 mg PO Q4H PRNRF: 0 gabapentin 800 mg tablet 800 mg PO TID PRNRF: 0 metoprolol succinate 25 mg tablet extended release 24 hr 25 mg PO DAILY Qty: 90 RF: 3 nicotine (polacrilex) 4 mg lozenge 4 mg BC Q4H PRNRF: 0 pravastatin 40 MG tablet 40 mg PO DAILY RF: 0 multivitamin with minerals [Multiple Vitamin-Minerals] 1 EACH tablet 1 tab PO DAILY RF: 0 omeprazole 20 mg capsule,delayed release(DR/EC) 20 mg PO BID RF: 0 Narcan 4 mg/actuation spray,non-aerosol 4 mg CARLA Q2M PRNQty: 2 RF: 0 sertraline 50 mg Tablet 50 mg PO DAILY RF: 0 atorvastatin 40 mg Tablet 40 mg PO DAILY RF: 0 Discontinued ibuprofen 800 mg tablet 800 mg PO TID RF: 0 Discharge Instructions Additional Instructions: Carpal and Cubital Tunnel Decompression Discharge Instructions Activity: You should stay in the sling for the first 2 weeks. You may come out of the sling for gentle motion and hygiene but should largely remain in the sling to allow the incision site to heal. Gentle motion of the elbow, hand, wrist, and fingers is okay and encouraged after the first few days, but no repetitive activities nor heavy lifting. You may apply ice. Medications: - You should take Tylenol and Ibuprofen around the clock. - You have been prescribed Oxycodone for breakthrough pain. Dressings: - The initial surgical dressing should stay in place for 3 days. It may then be removed and kept clean and dry. You should cover with a light gauze dressing. - You may shower after 3 days and get the wound wet. Follow-up: 10 days Referrals: Ignacio Barlow MD [ [facility] STAFF PHYSICIAN] - Equipment/Supplies: Sling Activity:: Elevate Remove Dressings/Wound Care:: 72 hours Shower/Bathe:: 72 hours Diet:: As Tolerated Discharge Orders Discharge Orders: Discharge Order (Routine); Ordered 07/09/21 Ordered By: Dalia Seth DS: Diagnosis Discharge Diagnosis (1) Left carpal tunnel syndrome: Status: Acute (2) Cubital tunnel syndrome on left: Status: Acute Documented by User: Ignacio Barlow MD 07/09/21 16:58 Discharge Plan Disposition Patient Disposition: HOME Condition: Good Discharge Details Reason For Visit: Left carpal and cubital tunnel syndromes Attending Provider: Ignacio Barlow Primary Care Provider: Christine Dey [place] Meds and New Rx's Prescriptions: New acetaminophen 500 mg tablet 500 mg PO Q6H PRN (Reason: pain) Qty: 60 RF: 2 ibuprofen 600 mg tablet 600 mg PO TID PRN (Reason: pain) Qty: 60 RF: 0 oxycodone 5 mg tablet 5 mg PO Q6H PRN (Reason: severe post-operative pain) Qty: 8 RF: 0 Continued diazepam [Valium] 5 mg tablet 5 mg PO BID PRNRF: 0 oxymorphone 5 mg tablet 5 mg PO Q4H PRNRF: 0 gabapentin 800 mg tablet 800 mg PO TID PRNRF: 0 metoprolol succinate 25 mg tablet extended release 24 hr 25 mg PO DAILY Qty: 90 RF: 3 nicotine (polacrilex) 4 mg lozenge 4 mg BC Q4H PRNRF: 0 pravastatin 40 MG tablet 40 mg PO DAILY RF: 0 multivitamin with minerals [Multiple Vitamin-Minerals] 1 EACH tablet 1 tab PO DAILY RF: 0 omeprazole 20 mg capsule,delayed release(DR/EC) 20 mg PO BID RF: 0 Narcan 4 mg/actuation spray,non-aerosol 4 mg CARLA Q2M PRNQty: 2 RF: 0 sertraline 50 mg Tablet 50 mg PO DAILY RF: 0 atorvastatin 40 mg Tablet 40 mg PO DAILY RF: 0 Discontinued ibuprofen 800 mg tablet 800 mg PO TID RF: 0 Discharge Instructions Additional Instructions: Carpal and Cubital Tunnel Decompression Discharge Instructions Activity: You should stay in the sling for the first 2 weeks. You may come out of the sling for gentle motion and hygiene but should largely remain in the sling to allow the incision site to heal. Gentle motion of the elbow, hand, wrist, and fingers is okay and encouraged after the first few days, but no repetitive activities nor heavy lifting. You may apply ice. Medications: - You should take Tylenol and Ibuprofen around the clock. - You have been prescribed Oxycodone for breakthrough pain. Dressings: - The initial surgical dressing should stay in place for 3 days. It may then be removed and kept clean and dry. You should cover with a light gauze dressing. - You may shower after 3 days and get the wound wet. Follow-up: 10 days Referrals: Ignacio Barlow MD [ [facility] STAFF PHYSICIAN] - Equipment/Supplies: Sling Activity:: Elevate Remove Dressings/Wound Care:: 72 hours Shower/Bathe:: 72 hours Diet:: As Tolerated Discharge Orders Discharge Orders: Discharge Order (Routine); Ordered 07/09/21 Ordered By: Dalia Seth
[2021-07-09] MEDS: Lactated Ringers 1,000 ML 80 ML IV (14:12)
--- NOTE | 2021-07-09 14:30 | W.ANESPRE ---
General Info Date of Service Date Performed: 07/09/21 Height: 5 ft 7 in Weight: 94.1 kg Body Mass Index (BMI): 32.5 Surgical Procedure: Operation Date: 07/09/21 14:40 Proposed Procedures Side Surgeon p Wrist ECTR Left Ignacio Barlow MD s Elbow Ulna Nerve Decompression Left Ignacio Barlow MD Meds Allergies and Home Medications Allergies Allergy/AdvReac Type Severity Reaction Status Date / Time No Known Allergies Allergy Verified 07/09/21 13:32 Home Medication Medication Instructions Recorded multivitamin with minerals 1 tab PO DAILY 10/01/14 [Multiple Vitamin-Minerals] pravastatin 40 mg PO DAILY 10/01/14 diazepam 5 mg tablet 5 mg PO BID PRN 08/26/18 nicotine (polacrilex) 4 mg buccal 4 mg BC Q4H PRN 11/18/18 lozenge gabapentin 800 mg tablet 800 mg PO TID PRN tab 11/15/19 Narcan 4 mg CARLA Q2M PRN #2 each 01/05/20 metoprolol succinate 25 mg 25 mg PO DAILY #90 tab 12/15/20 tablet,extended release 24 hr ibuprofen 800 mg tablet 800 mg PO TID 02/19/21 omeprazole 20 mg capsule,delayed 20 mg PO BID cap 02/19/21 release oxymorphone 5 mg tablet 5 mg PO Q4H PRN 02/19/21 atorvastatin 40 mg PO DAILY 07/09/21 sertraline 50 mg PO DAILY 07/09/21 Current Visit Medications: Current Medications Generic Name Dose Route Start Last Admin Trade Name Freq PRN Reason Stop Dose Admin Ringer's Solution 1,000 mls @ 80 mls/hr 07/09/21 06:00 07/09/21 14:12 IV 08/04/21 23:59 80 mls/hr INFUSION ANITA Administration Cefazolin Sodium/Dextrose 2 gm in 50 mls @ 100 mls/hr 07/09/21 06:00 Ancef Duplex IVPB 07/09/21 16:00 PREOP ANITA IV Miscellaneous Supplies 1 each 07/09/21 06:00 Iv Access IV 08/04/21 23:59 DIRECTED ANITA Sodium Chloride 0 ml 07/09/21 06:00 Normal Saline Flush 10 Ml Syr IV 08/04/21 23:59 PRN PRN Sodium Chloride 0 ml 07/09/21 06:00 Normal Saline 10 Ml Vial IJ 08/04/21 23:59 DIRECTED PRN Sterile Water 0 ml 07/09/21 06:00 Water,Injection,Sterile 10 Ml Vial IJ 08/04/21 23:59 DIRECTED PRN PFSH Active Problems Active Problems: Problem Status Onset Code Chronic back pain M54.9, G89.29 Essential hypertension I10 Hip pain, right 09/24/17 M25.551 Hyperlipidemia E78.5 History of right hip replacement Z96.641 Superficial dehiscence of wound T81.30XA Hypotension 09/2018 I95.9 Diarrhea 03/28/15 R19.7 Trochanteric bursitis, right hip M70.61 History of total replacement of right hip ~04/2018 Z96.641 Pain in hip region after total hip replacement T84.84XA, Z96.649 Status post total hip replacement, left 01/04/20 Z96.642 Lung nodule, multiple R91.8 Pain of left hip M25.552 Numbness of left hand R20.0 Left foot pain M79.672 Left carpal tunnel syndrome G56.02 Cubital tunnel syndrome on left G56.22 Elevated glucose R73.09 Medical History Medical History Anesthesia Per pt. states in the past he has woken up violently, states at night he takes valium to shut his brain off and that works well for him. Pt. states it is related to PTSD from . Chronic back pain Degenerative joint disease of left hip HLD (hyperlipidemia) HTN (hypertension) PTSD (post-traumatic stress disorder) Medical History Comments:: Per pt. states in the past he was been violent when he wakes up from anesthesia Surgical History Surgical History back fusion (11/09/12) back surgery (11/05/05) back surgery (11/17/07) back surgery (11/08/09) Cholecystectomy (~1979) Trigger Finger release (10/11/16) RIGHT RING FINGER/DR. POWELL Tobacco Smoking/Tobacco Use Status: Current every day Alcohol Alcohol Intake: current Alcohol intake frequency: 0-2 drinks per day Substance Use Substance use: Never Substance use type: does not use Vital Signs and Lab Results Vital Signs Most Recent Vital Signs in EMR: Most Recent Vital Signs Temp Pulse Resp BP Pulse Ox 36.4 C L 72 16 129/109 H 96 07/09/21 13:42 07/09/21 13:42 07/09/21 13:42 07/09/21 13:42 07/09/21 13:42 Lab Results Blood Type / Crossmatch: No Data to Display Complete Blood Count: White Blood Count 7.81 10^3/uL (4.4-10.8) 06/20/21 09:41 06/20/21 Red Blood Count 4.75 10^6/uL (4.36-5.78) 06/20/21 09:41 06/20/21 Hemoglobin 14.7 g/dL (13.5-17.5) 06/20/21 09:41 06/20/21 Hematocrit 43.2 % (40.0-50.0) 06/20/21 09:41 06/20/21 Platelet Count 199 10^3/uL (130-400) 06/20/21 09:41 06/20/21 Complete Metabolic Panel: Sodium Level 140 mmol/L (136-145) 06/20/21 09:41 06/20/21 Potassium Level 4.6 mmol/L (3.5-5.1) 06/20/21 09:41 06/20/21 Chloride Level 103 mmol/L (98-107) 06/20/21 09:41 06/20/21 Carbon Dioxide Level 25.2 mmol/L (21.0-32.0) 06/20/21 09:41 06/20/21 Blood Urea Nitrogen 16 mg/dL (7-18) 06/20/21 09:41 06/20/21 Creatinine 1.0 mg/dL (0.70-1.30) 06/20/21 09:41 06/20/21 Estimated GFR/1.73 m2 >= 60.00 (mL/min/1.73m2) 06/20/21 09:41 06/20/21 Calcium Level 8.9 mg/dL (8.5-10.1) 06/20/21 09:41 06/20/21 Albumin 4.2 g/dL (3.4-5.0) 06/20/21 09:41 06/20/21 Glucose Level 107 mg/dL (74-106) H 06/20/21 09:41 06/20/21 Hemoglobin A1c 5.4 % (<5.7) 06/20/21 09:50 06/20/21 Liver Function Panel: Alanine Aminotransferase (ALT/SGPT) 33 U/L (16-63) 06/20/21 09:41 06/20/21 Aspartate Amino Transf (AST/SGOT) 21 U/L (15-37) 06/20/21 09:41 06/20/21 Coagulation Panel: No Data to Display Cardiac Panel: No Data to Display Arterial Blood Gas: No Data to Display Venous Blood Gas: No Data to Display Pancreas Panel: No Data to Display Thyroid Panel: No Data to Display Infectious Disease: Coronavirus (COVID-19)(PCR) Negative (Negative) 07/06/21 09:27 07/06/21 Coronavirus 2019 Source Nasal/Nares 07/06/21 09:27 07/06/21 Blood Cultures: No Data to Display Toxicology Panel: No Data to Display Anesthesia Assessment and Plan Anesthesia History Personal History: Other Family History: No Family History of Anesthesia Complications Exercise Tolerance Exercise Tolerance: Metabolic Equivalents>4 Pertinent Negatives Pertinent Negatives: No Symptoms of GERD Cardiac & Pulmonary Exam Cardiac Exam: Normal S1/S2 Heart Sounds Pulmonary Exam: Clear Bilateral Breath Sounds Implantable Cardiac Device Does patient have a Pacemaker or an ICD?: No Airway Exam Known Difficult Airway: No Mallampati Class: 2 Mouth Opening: Normal (> 3cm) Thyromental Distance: Less than 3 cm Neck Range of Motion: Full ROM Neck Circumference: Normal Teeth Condition: Generalized Poor Dentition ASA Classification ASA Score: ASA 2 Emergency Case?: No NPO Status NPO Status: NPO Clears >2 hours, Solids >8 hours Anesthesia Plan Resuscitation Status: Full Code Anesthesia Technique: General Anesthesia Airway Planned: LMA Monitors Used: Standard Monitors
[2021-07-09 14:32] VITALS: BMI 32.5
[2021-07-09] MEDS: ceFAZolin 2 GM/50 ML BAG IVPB (15:38)
[2021-07-09] MEDS: Sodium Bicarbonate 50 MEQ/50 ML VIAL (16:00)
[2021-07-09 16:44] VITALS: BP 154/86; PULSE 74; RESP 13; TEMP 36.3; O2SAT 97
[2021-07-09 16:49] VITALS: BP 158/92; PULSE 72; RESP 12; TEMP 36.3; O2SAT 96
[2021-07-09 16:54] VITALS: BP 150/93; PULSE 73; RESP 12; TEMP 36.3; O2SAT 97
[2021-07-09 17:04] VITALS: BP 142/85; PULSE 68; RESP 18; TEMP 36.6; O2SAT 96
--- NOTE | 2021-07-09 17:18 | W.ANESPOSTOP ---
Postoperative Evaluation Date, Time and Location Date Performed: 07/09/21 Time Performed: 16:56 Patient Location: PACU Vital Signs Most Recent Imported Vital Signs: Most Recent Vital Signs Temp Pulse Resp BP Pulse Ox 36.3 C L 73 12 150/93 H 97 07/09/21 16:54 07/09/21 16:54 07/09/21 16:54 07/09/21 16:54 07/09/21 16:54 Pain Score Most Recent Pain Score: Most Recent Pain Score Pain Level 0 07/09/21 16:54 Assessment Mental Status: Awake (Alert & Oriented to Patient Baseline) Airway and Respiratory Function: Patent airway with normal (patient baseline) respiratory exam Cardiovascular Function: Hemodynamically Stable Hydration Status: Adequately Hydrated Nausea & Vomiting: No Nausea or Vomiting Pain: Pt. Denies Any Pain Peripheral Nerve Block: Patient did not receive a nerve block
[2021-07-09 17:32] VITALS: BP 143/90; PULSE 63; RESP 16; TEMP 36.6; O2SAT 96
--- NOTE | 2021-07-09 21:43 | ROE_ITS ---
Date of service: 07/09/21 Time of Service: 15:43 Operative Note Operative Note DATE OF PROCEDURE: 07/09/21 PRE-OP DIAGNOSIS: Left Carpal Tunnel and Left Cubital Tunnel Syndrome POST-OP DIAGNOSIS: same PROCEDURE: Left Endoscopic Carpal Tunnel Release and Left Cubital Tunnel Decompression SURGEON: Ignacio Barlow ANESTHESIA TYPE: General LMA/ETT Refer to Anesthesia Record ESTIMATED BLOOD LOSS: 0 PATHOLOGY: none sent TOURNIQUET TIME: 19 COMPLICATIONS: None Patient was transported to: PACU Patient's condition: stable Indications: Subhash is a 61 year old male who has had symptoms of carpal and cubital tunnel syndrome. Nonoperative treatment options had been trialed. Nerve conduction studies identified the carpal and cubital tunnel as the point of compression. Given failure of nonoperative treatments and persistent symptoms, I offered operative intervention. I reviewed the technical details of a carpal tunnel release and cubital tunnel decompression with possible anterior subcutaneous transposition. I reviewed the risk of the procedure to include bleeding, infection, pain, stiffness, nerve instability, damage to superficial nerves, persistent symptoms, and incomplete release. Despite these risks, the patient elected to proceed. Findings: The carpal tunnel was release with a standard endoscopic technique without difficulty and excellent visualization. There was a tightened cubital tunnel. The ulnar nerve was release from the first motor branch distally through the [place] proximally. The nerve was quite tight within the FCU with two distinct fascial bands constricting the nerve. Procedure Description: Subhash was greeted in the preoperative holding area where the correct side was identified and marked. The consent was reviewed with the patient and signed. The history and physical was updated. All questions were answered. He was taken back to the operating room. The patient was placed into the supine position on the operating room table with the right arm on an arm board. A nonsterile tourniquet was placed high onto the arm, into the axilla. All bony prominences were well padded. Prophylactic antibiotics in the form of Cefazolin were administered. The right arm was then prepped with Chloraprep and draped in a standard fashion with stockinette and extremity drape. A timeout to confirm correct identity, side and site, procedure, allergies, anesthesia, and medical concerns was performed. The surgical site was marked in the volar wrist creases in line with the radial border of the fourth ray. This area was anesthetized with approximately 6cc of 1% Lidocaine with Epinephrine. The surgical site about the medial elbow was drawn on the skin just posterior to the medial epicondyle borders. The planned surgical field was anesthetized with 1% Lidocaine with Epinephrine. The limb was then exsanguinated with an Esmarch. Starting with the carpal tunnel, the skin was incised with a 15 blade, approximately 1cm. The skin only was cut and the deeper tissue was dissected bluntly with a tenotomy scissor, avoiding passing nerve and venous structures. The fascia was penetrated and opened bluntly. A two-prong skin hook was placed under this proximal fascial edge. A series of hamate finders were used to identify and dilate the carpal tunnel. Synovial elevator was used to free synovial attachments to the underside of the transverse carpal ligament. My thumb was kept in the palm to kennedy the distal extent of the carpal tunnel and correctly position the hand. The Microaire endoscope was inserted without difficulty and without resistance. Excellent visualization showed horizontally running fibers of the transverse carpal ligament (TCL). The distal extent of the TCL was visualized and the end of the scope palpated with the thumb. The blade was elevated and withdrawn from distal to proximal. The TCL was split into two flaps. The endoscope was reinserted to confirm complete release and any remnant ligament was incised. The scope was withdrawn and the proximal aspect of the carpal tunnel was grossly inspected and appeared release with the median nerve visible. The antebrachial fascia at the level of the wrist was then freed from the overlying skin and then the underlying median nerve with blunt dissection. This was transected longitudinally for about 3cm proximal to the wrist incision. The wound was then irrigated with easy flow of irrigant distally and proximally. The incision was closed with a single 4-0 Nylon suture. . Attention was then turned to the cubital tunnel release. The skin of the medial elbow was incised only with the elbow in some flexion and on a bump. The deep tissue and subcutaneous fat was dissected with a tenotomy scissors trying to protect any branches of the medial antebrachial cutaneous nerve. Any branches that were identified were retracted out of the way. The ulnar nerve was palpated and identified. A small window into the cubital tunnel, sheath overlying the nerve, was created and the nerve was able to be palpated with the [place]. A Metzenbaum scissor was then used to open up the sheath starting with Montoya's ligament. I then worked distal over the ulnar nerve releasing any constraints against the nerve all the way to the fascia of the FCU muscle belly. This muscle belly was bluntly all the way down to the first motor branch of the ulnar nerve and the overlying fascia was incised. The nerve was tight within the FCU muscle with two distinct fascial bands compressing against the nerve. Then starting there at the medial epicondyle, I proceeded to work proximally to release any constraints over the ulnar nerve. This was taken all the way to the arcade of [place]. The medial intermuscular septum was also palpated and any sharp edges against the ulnar nerve were resected and released. After fully releasing the nerve it was inspected visually. I was also able to palpate the nerve fully and reach one finger up into the proximal and distal aspects to make sure there were no constraints against the nerve. A freer elevator was also used to slide easily against the ulnar nerve without any points of constriction. The arm was then taken through range of motion. The ulnar nerve did not sublux/dislocate out of its groove behind the lateral epicondyle. Therefore, no transposition was performed. The tourniquet was then deflated. Any areas of bleeding were cauterized with bipolar electrocautery. The wound was thoroughly irrigated. The deep tissue was closed with a 3-0 Vicryl. The skin was closed with a 4-0 nylon. The wounds were dressed with Xeroform, 4 x 4's, ABD, Kerlix and an Shabbir wrap. Subhash was placed into a sling. He was transferred back to the PACU in a stable condition.
== END 2021-07-09 17:59 | disposition home or self-care (01) ==
PROVIDERS: PCP Student in an Organized Health Care Education/Training Program; Visit Provider Student in an Organized Health Care Education/Training Program
PROC: 01N54ZZ Release Median Nerve, Percutaneous Endoscopic Approach (ICD-10-PCS; CPT 29848; principal; 2021-07-09 14:30)
PROC: (CPT 64718; 2021-07-09 14:30)
DX: G56.02 Carpal tunnel syndrome, left upper limb (principal); G56.22 Lesion of ulnar nerve, left upper limb; I10 Essential (primary) hypertension; E78.5 Hyperlipidemia, unspecified
CPT/HCPCS: 64718; 29848; J0690; J1100; J1885; J2250; J2405

== ENCOUNTER → 2021-07-18 11:29 | Outpatient (BNVA) | payer MEDICARE, SELFPAY | PROVIDERS: PCP Student in an Organized Health Care Education/Training Program; Referring Provider Student in an Organized Health Care Education/Training Program | DX: Z47.89 Encounter for other orthopedic aftercare (principal); G56.02 Carpal tunnel syndrome, left upper limb ==

== ENCOUNTER → 2021-07-24 13:00 | Outpatient (BNVA) | payer MEDICARE, SELFPAY | PROVIDERS: PCP Student in an Organized Health Care Education/Training Program; Referring Provider Student in an Organized Health Care Education/Training Program | DX: Z47.89 Encounter for other orthopedic aftercare (principal) ==

== ENCOUNTER 2021-08-17 01:21 | Outpatient (CLI) | payer MEDICARE, SELFPAY ==
--- NOTE | 2021-08-17 06:45 | DI.CTLCSR_ITS ---
Exam(s) CT CHEST LUNG CANCER SCREEN EXAM: CT CHEST LUNG CANCER SCREEN CLINICAL HISTORY: Screening for lung cancer,FORMER SMOKER, Z87.891 TECHNIQUE: Imaging Protocol: Axial computed tomography images with coronal and sagittal reformatted images were created and reviewed COMPARISON: CT CT CHEST WO from 08/16/2020 FINDINGS: Tracheobronchial tree: Patent where visualized. Mediastinum and Karin: No dominant adenopathy or fluid collection. Esophagus is unremarkable. Pulmonary parenchyma: No consolidation or dominant measurable mass. Mild emphysematous changes. Lung Nodules: Stable pulmonary nodules. No new pulmonary nodules. Pleura: No effusion or pneumothorax. Heart: The heart is not dilated. Coronary artery calcifications are present. No pericardial effusion. Aorta: Thoracic aorta non-dilated.Atherosclerosis is present. Upper abdomen: Status post cholecystectomy. Bones: Within normal limits. Soft Tissues: Bilateral gynecomastia. IMPRESSION: Stable pulmonary nodules. Lung RADS Cat 2 - Benign Appearance / Behavior: Nodules with a very low likelihood of becoming a clin ically active cancer due to size or lack of growth Lung-RADS 1.0 CATEGORIES: Category 0 - Prior chest CT exam(s) being located for comparison. Category 1 - Annual screening in 12 months. No nodules or definitely benign nodules. Category 2 - Annual screening in 12 months. Benign appearance. Nodules with low likelihood of becomin g active cancer. Category 3 - 6-month follow-up. Probably benign. Short-term follow-up suggested. Nodules with low lik elihood of becoming active cancer. Category 4A - 3-month follow-up and CT/PET if >8 mm in size. Suspicious finding. Findings which requi re additional testing. Category 4B - Findings which require additional testing and tissue sampling. Category 4X - Category 3 or 4 nodules with additional features or imaging findings that increases the suspicion of malignancy. Modifier S- Potentially clinically significant findings (non lung cancer) RADIATION DOSE DELIVERED: 77.68mGy.cm Total DLP CTDIvol DATA REPOSITORY: All CT scans at this facility are submitted to the National Radiology Data Registry (NRDR) Dose Index Registry (DIR) with the [employer] (ACR). RADIATION OPTIMIZATION: All CT scans at this facility use at least one of these dose optimization te chniques: automated exposure control; mA and/or kV adjustment per patient size (includes targeted exa ms where dose is matched to clinical indication); or iterative reconstruction.
== END 2021-08-17 01:41 ==
PROVIDERS: PCP Student in an Organized Health Care Education/Training Program; Visit Provider Student in an Organized Health Care Education/Training Program
DX: Z12.2 Encounter for screening for malignant neoplasm of respiratory organs (principal); R91.8 Other nonspecific abnormal finding of lung field; Z87.891 Personal history of nicotine dependence
CPT/HCPCS: 71271

== ENCOUNTER → 2021-09-10 09:50 | Outpatient (BNVA) | payer MEDICARE, SELFPAY | PROVIDERS: PCP Student in an Organized Health Care Education/Training Program; Referring Provider Student in an Organized Health Care Education/Training Program; Visit Provider Student in an Organized Health Care Education/Training Program | DX: Z47.89 Encounter for other orthopedic aftercare (principal) | CPT/HCPCS: 99204 ==

== ENCOUNTER 2021-10-22 13:35 | Outpatient (CLI) | payer MEDICARE, SELFPAY ==
--- NOTE | 2021-10-22 10:15 | DI.RAD_ITS ---
Exam(s) XR HIP RT COMPLETE AP PELVIS EXAM: XR HIP RT COMPLETE AP PELVIS CLINICAL HISTORY: Right hip pain after ZULLY. TECHNIQUE: 2D digital imaging was performed. Two views. COMPARISON: CR XR HIP LT COMPLETE AP PELVIS from 01/20/2020 CR XR HIP LT AP LAT ONLY from 04/20/2020 CR XR HIP LT AP LAT ONLY from 01/18/2021 FINDINGS: BONES: No acute fracture is present. No bony destructive lesion is seen. JOINTS: No dislocation present. Bilateral hip prostheses, unchanged from prior. SOFT TISSUE: Normal. IMPRESSION: Stable appearance of bilateral hip prostheses. DATA REPOSITORY: RADIATION DOSE DELIVERED:
== END 2021-10-22 13:36 | disposition home or self-care (01) ==
LOC: DIORS 13:35
PROVIDERS: PCP Family Medicine; Referring Provider Family Medicine; Visit Provider Student in an Organized Health Care Education/Training Program
DX: T84.84XA Pain due to internal orthopedic prosthetic devices, implants and grafts, initial encounter (principal); M70.61 Trochanteric bursitis, right hip; Z96.641 Presence of right artificial hip joint
CPT/HCPCS: 20610; 73502; J1040

== ENCOUNTER → 2022-02-01 09:38 | Outpatient (BNVA) | payer MEDICARE, SELFPAY | PROVIDERS: PCP Student in an Organized Health Care Education/Training Program; Referring Provider Student in an Organized Health Care Education/Training Program; Visit Provider Physician Assistant | DX: S76.012A Strain of muscle, fascia and tendon of left hip, initial encounter (principal); X58.XXXA Exposure to other specified factors, initial encounter; M70.62 Trochanteric bursitis, left hip | CPT/HCPCS: 20610; 99214; J1040 ==

== ENCOUNTER 2022-02-16 09:37 | Emergency (ER) | payer MEDICARE, SELFPAY ==
[2022-02-16 09:53] VITALS: BP 135/80; PULSE 94; RESP 18; TEMP 37.2; O2SAT 98
--- NOTE | 2022-02-16 10:15 | ED.GENADUL_ITS ---
Discharge Plan Disposition Patient Disposition: HOME Condition: Stable Discharge Details Clinical Impression: Cellulitis of left leg Primary Care Provider: Christine Dey ED Provider: Henrique Ricks Home Meds and New Rx's Prescriptions: New sulfamethoxazole-trimethoprim [Bactrim DS] 800-160 mg tablet 1 tab PO BID Qty: 20 0RF Continued diazepam [Valium] 5 mg tablet 5 mg PO BID PRN Label Comments: Dr Gómez prescribes, pt takes at night to help him sleep oxycodone-acetaminophen 5-325 mg tablet 1 - 2 tab PO .5 times daily PRN gabapentin 800 mg tablet 800 mg PO TID PRN cephalexin 500 mg capsule 500 mg PO QID Qty: 28 0RF metoprolol succinate 25 mg tablet extended release 24 hr 25 mg PO DAILY Qty: 90 3RF Rx Instructions: 3rd reduction in dosing (2019) Multiple Vitamin-Minerals 1 EACH tablet 1 tab PO DAILY omeprazole 20 mg capsule,delayed release(DR/EC) 20 mg PO BID naloxone [Narcan] 4 mg/actuation spray,non-aerosol 4 mg CARLA Q2M PRNQty: 2 0RF Rx Instructions: spray 1 dose into ONE nostril; alternate nostrils w each dose until help arrives atorvastatin 40 mg Tablet 40 mg PO DAILY acetaminophen 500 mg tablet 500 mg PO Q6H PRN (Reason: pain) Qty: 60 2RF ibuprofen 600 mg tablet 600 mg PO TID PRN (Reason: pain) Qty: 60 0RF Discharge Instructions Instructions: Cellulitis (ED) Additional Instructions: Continue taking Keflex as directed and add on Bactrim as directed. Rest, elevate, warm soaks and/or compresses every 2 hours for 20 minutes. Please watch for new or worsening symptoms and return to the ER for any concerns. Lastly, please follow-up with your primary care provider as scheduled this upcoming week. Medical Decision Making This is a 61-year-old gentleman who reports that he was bitten he believes late into the night 2 nights ago by what he believes to be a spider, was seen by his PCP yesterday and placed on Keflex, he has been on Keflex for approximately 24 hours. Today he believes it is worse. He denies drainage or fever. No rash elsewhere on his body. Clinically he appears well, nontoxic, nonseptic. It would appear as though his cellulitis has spread in all directions by approximately 1-2 cm but there is no lymphangitic streaking or abscess. Plan is to obtain routine screening laboratory values to assess for potential leukocytosis and I will add on a dual therapy antibiotics, Bactrim. He has only been taking his antibiotics for approximately 24 hours and so I am not surprised that is slightly worse before it begins to respond to his antibiotic therapy. The initial sterile markings made yesterday for a solid line, I did kennedy the new boundaries with a dotted line today. Upon reevaluation patient is resting comfortably. He appears well, nontoxic. Blood work reveals mild leukocytosis of 12.00. Again he has only been on antibiotic therapy for approximately 24 hours and I do not believe that he has failed outpatient therapy. Will add on dual therapy and discussed the importance of elevation and warm compresses. He tells me he is seeing his PCP either Friday or Friday, they should be contacting him Friday. Strict discharge and return precautions were provided. Patient understands, is agreeable to this plan, and has no additional questions or concerns upon discharge. This documentation was generated using [employer] system, please disregard any oddities of phrase or misspellings. Medical Records Medical records reviewed: Yes I reviewed the patient's medical records. Lab Data Lab results reviewed: Yes I reviewed the patient's lab results. Labs: Laboratory Tests Range/Units 02/16/22 02/16/22 10:21 10:21 WBC (4.4-10.8) 10^3/uL 12.00 H RBC (4.36-5.78) 10^6/uL 4.49 Hgb (13.5-17.5) g/dL 14.1 Hct (40.0-50.0) % 41.6 MCV (80-95) fL 93 MCH (27.0-33.0) pg 31.4 MCHC (32.0-36.0) % 33.9 RDW (11.8-14.1) % 11.9 Plt Count (130-400) 10^3/uL 161 MPV (8.0-11.0) fL 8.6 Immature Gran % 0.3 Neutrophils % 79.1 Lymphocytes % 11.8 Monocytes % 7.4 Eosinophils % 1.1 Basophils % 0.3 Nucleated RBC % (0.0-0.3) % 0.0 Absolute Neutrophils (1.2-6.7) 10^3/uL 9.49 H Absolute Lymphocytes (1.2-3.4) 10^3/uL 1.42 Absolute Monocytes (0.1-0.8) 10^3/uL 0.89 H Absolute Eosinophils (0.0-0.7) 10^3/uL 0.13 Absolute Basophils (0.0-0.2) 10^3/uL 0.04 Sodium (136-145) mmol/L 138 Potassium (3.5-5.1) mmol/L 4.1 Chloride (98-107) mmol/L 103 Carbon Dioxide (21.0-32.0) mmol/L 25.0 Anion Gap (3-11) mmol/L 10.0 BUN (7-18) mg/dL 16 Creatinine (0.70-1.30) mg/dL 1.0 Estimated GFR/1.73 m2 (mL/min/1.73m2) >= 60.00 Glucose (74-106) mg/dL 113 H Calcium (8.5-10.1) mg/dL 8.6 Total Bilirubin (0.2-1.0) mg/dL 0.4 AST (15-37) U/L 25 ALT (16-63) U/L 37 Alkaline Phosphatase (46-116) U/L 64 Total Protein (6.4-8.2) g/dL 7.8 Albumin (3.4-5.0) g/dL 3.8 HPI General Mode of arrival: ambulatory . Date/Time Provider Initiated Documentation: 02/16/22 09:54 . Limitations to Documentation: no limitations . Information obtained by: patient and family . History of Present Illness 61 year old M presents to the emergency department with the chief complaint of R leg infection, described as severe, with intensity rated at 7. Quality is described as crushing, and is localized to the right and lower extremity. Patient reports no radiation. Patient started experiencing this day(s) (2) and it has been constant. No relieving factors improve symptom(s), No exacerbating factors reported . Patient notes no other symptoms.. Patient did receive the following treatments prior to arrival, other (keflex) Related Data Home Medications Medication Instructions Recorded Confirmed multivitamin with minerals 1 tab PO DAILY 10/01/14 02/16/22 (Multiple Vitamin-Minerals tablet) diazepam 5 mg tablet (Valium) 5 mg PO BID PRN 08/26/18 02/16/22 gabapentin 800 mg tablet 800 mg PO TID PRN 11/15/19 02/16/22 naloxone 4 mg/actuation nasal 4 mg intranasal Q2M PRN #2 ea 01/05/20 02/16/22 spray (Narcan) omeprazole 20 mg capsule,delayed 20 mg PO BID 02/19/21 02/16/22 release acetaminophen 500 mg tablet 500 mg PO Q6H PRN pain #60 tabs 07/09/21 02/16/22 atorvastatin 40 mg tablet 40 mg PO DAILY 07/09/21 02/16/22 ibuprofen 600 mg tablet 600 mg PO TID PRN pain #60 tabs 07/09/21 02/16/22 oxycodone-acetaminophen 5 mg-325 1 - 2 tab PO .5 times daily PRN 11/09/21 02/16/22 mg tablet metoprolol succinate 25 mg 25 mg PO DAILY #90 tabs 11/17/21 02/16/22 tablet,extended release 24 hr cephalexin 500 mg capsule 500 mg PO QID #28 caps 02/15/22 02/16/22 sulfamethoxazole 800 1 tab PO BID #20 tabs 02/16/22 mg-trimethoprim 160 mg tablet (Bactrim DS) Previous Rx's Medication Instructions Recorded naloxone 4 mg/actuation nasal 4 mg intranasal Q2M PRN #2 ea 01/05/20 spray (Narcan) acetaminophen 500 mg tablet 500 mg PO Q6H PRN pain #60 tabs 07/09/21 ibuprofen 600 mg tablet 600 mg PO TID PRN pain #60 tabs 07/09/21 metoprolol succinate 25 mg 25 mg PO DAILY #90 tabs 11/17/21 tablet,extended release 24 hr cephalexin 500 mg capsule 500 mg PO QID #28 caps 02/15/22 sulfamethoxazole 800 1 tab PO BID #20 tabs 02/16/22 mg-trimethoprim 160 mg tablet (Bactrim DS) Allergies Allergy/AdvReac Type Severity Reaction Status Date / Time No Known Allergies Allergy Verified 02/16/22 09:58 General Stated Complaint: Cellulitis ROSMERY: 3 Review of Systems Constitutional Constitutional: Denies fever(s) Musculoskeletal Musculoskeletal: Denies numbness and Denies tingling Integumentary/Breasts Skin/Breast: Reports erythema Neurologic Neurologic: Denies numbness and Denies tingling [facility] All Active Problems (Updated 02/16/22 @ 11:20 by SHAKIR Sosa) Cellulitis of left leg (Acute) Strain of hip flexor (Acute) Trochanteric bursitis, left hip (Acute) SARS-CoV-2 positive (Acute ~12/18/21) Discontinued smoking (Acute) Chronic back pain (Chronic) Dr. Thompson (PCP in [place]) prescribes chronic pain medications for this pt Essential hypertension (Chronic) Hx HTN, low recently .. STOPPED HCTZ 01/2019 .. Lowered BB, stay @ 25mg Hyperlipidemia (Chronic) History of right hip replacement (Chronic) Superficial dehiscence of wound (Acute) Mostly irritating, draining, but significant drainage @ distal section of surg site warranting wound evaluation. Stopped triple-antibiotic in case of aggrav; trial silvadene/gauze. Hypotension (Acute 09/2018) New issue .. decreasing BB . Stay at 25mg 02/10/19 Diarrhea (Acute 03/28/15) Trochanteric bursitis, right hip (Acute) Injected: 01/15/2019, 10/22/2021 History of total replacement of right hip (Acute ~04/2018) [facility] Pain in hip region after total hip replacement (Acute) 09/01/19-repeat steroid injections. Ana Garvey MD [facility] Status post total hip replacement, left (Acute 01/04/20) Treatment for avascular necrosis of the left hip. Lung nodule, multiple (Chronic) Stable per 08/2020 CT. 04/02/2020 [facility] CT: recommend 3-6 month f/u. 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 and/or transverse arch pathology. [ ] XR Left carpal tunnel syndrome (Acute) S/P release: 07/09/2021 Cubital tunnel syndrome on left (Acute) S/P ECTR: 07/09/2021 Elevated glucose (Acute) adding a1c Medical History Anesthesia Per pt. states in the past he has woken up violently, states at night he takes valium to shut his brain off and that works well for him. Pt. states it is related to PTSD from . Chronic back pain Degenerative joint disease of left hip HLD (hyperlipidemia) HTN (hypertension) PTSD (post-traumatic stress disorder) Surgical History back fusion (11/09/12) back surgery (11/05/05) back surgery (11/17/07) back surgery (11/08/09) Cholecystectomy (~1979) Trigger Finger release (10/11/16) RIGHT RING FINGER/DR. POWELL Family History Mother , AD at age 84. Diabetes Heart failure Dementia Father No problems noted. Sister Diabetes Sister , Hypothermia at age 43. No problems noted. Brother Mental disorder Brother No problems noted. Social History Smoking/Tobacco Use Status: Current every day Tobacco Type: pipe and cigars Per week: 14 Tobacco: How many years used: 40 Smoking risk assessment performed?: Yes Alcohol Intake: current Alcohol Intake frequency: 3 or more drinks per day Alcohol type: beer Drug use: Occasionally Substance use type: marijuana Adopted: No Foster care: No Pets and animals: Yes Pets and animals: cat(s), dog(s) and turtle(s) Current gender identity: male Duration: > 90 minutes/day Seatbelt use: always Helmet use: No Water heater temp set <120 deg: Yes Working smoke detector in home: Yes Fire extinguisher in home: Yes Carbon monox detector in home: Yes Firearms in home: Yes Firearms unloaded and locked: Yes Do you feel safe at home: Yes Do you feel safe in your relationship?: Yes Victim of physical abuse: No Victim of emotional abuse: No Victim of sexual abuse: No Additional Social history: at bedside. Exam Const General: cooperative, healthy appearing, comfortable and no acute distress Orientation: alert and awake [facility] Head: normal to inspection, normocephalic and atraumatic Eyes Conjunctivae: conjunctivae normal Neck Neck: normal visual inspection, full ROM, trachea midline and supple Resp Effort & Inspection: normal respiratory effort and able to speak in complete sentences Cardio Rate: regular rate Rhythm: regular rhythm Skin General skin exam: no rashes or lesions noted Neuro General: patient alert, patient awake, moves all extremities and no focal motor deficits Cognition: normal cognition Speech: speech normal Gait: normal gait Motor: muscle tone normal throughout Sensory Exam: no sensory deficits noted Extrem General: full ROM and capillary refill normal Upper/lower leg/hip images: 1. Erythema, warmth, tenderness, induration without fluctuance. Centrally there is a scab with hyperpigmented tissue. The erythema has spread in all directions outside of the sterile marking made yesterday by approximately 1-2 cm. There is no drainage or pointing abscess. There is no lymphangitic streaking. Psych Appearance: grossly normal Mental Status: mental status grossly normal Course Vital Signs Vital signs: Vital Signs Temperature 37.2 C 02/16/22 09:53 Pulse 94 H 02/16/22 09:53 Respiratory Rate 18 02/16/22 09:53 Blood Pressure 135/80 02/16/22 09:53 Pulse Oximetry 98 02/16/22 09:53 Temperature 37.2 C 02/16/22 09:53 Temperature Source Temporal Artery Scan 02/16/22 09:53 Pulse 94 H 02/16/22 09:53 Respiratory Rate 18 02/16/22 09:53 Blood Pressure 135/80 02/16/22 09:53 Blood Pressure Position Sitting 02/16/22 09:53 Pulse Oximetry 98 02/16/22 09:53 Oxygen Delivery Method Room Air 02/16/22 09:53 Oxygen Flow Rate 0 02/16/22 09:53 Pain Level 8 02/16/22 09:53
[2022-02-16 10:35] LABS: Abs Immature Grans 0.03 10^3/uL (0.0-0.06); Absolute Basophil Count 0.04 10^3/uL (0.0-0.2); Absolute Eosinophil Count 0.13 10^3/uL (0.0-0.7); Absolute Monocyte Count 0.89 10^3/uL (0.1-0.8); Basophils % 0.3; Eosinophils % 1.1; HCT 41.6 % (40.0-50.0); HGB 14.1 g/dL (13.5-17.5); Immature Grans % 0.3; Lymphocytes % 11.8; MCH 31.4 pg (27.0-33.0); MCHC 33.9 % (32.0-36.0); MCV 93 fL (80-95); MPV 8.6 fL (8.0-11.0); Monocytes % 7.4; Neutrophils % 79.1; Platelet Count 161 10^3/uL (130-400); RBC 4.49 10^6/uL (4.36-5.78); RDW 11.9 % (11.8-14.1)
[2022-02-16 10:36] LABS: Absolute Lymphocyte Count 1.42 10^3/uL (1.2-3.4); Absolute Neutrophil Count 9.49 10^3/uL (1.2-6.7)
[2022-02-16] MEDS: Sulfameth/Trimeth DS TAB 1 TAB PO (10:37)
[2022-02-16 10:50] LABS: ALT 37 U/L (16-63); AST 25 U/L (15-37); Albumin 3.8 g/dL (3.4-5.0); Alkaline Phosphatase 64 U/L (46-116); BUN 16 mg/dL (7-18); Bilirubin, Total 0.4 mg/dL (0.2-1.0); Calcium 8.6 mg/dL (8.5-10.1); Chloride 103 mmol/L (98-107); Glucose 113 mg/dL (74-106); Potassium 4.1 mmol/L (3.5-5.1); Sodium 138 mmol/L (136-145); Total Protein 7.8 g/dL (6.4-8.2)
== END 2022-02-16 11:37 | disposition home or self-care (01) ==
PROVIDERS: Emergency Provider Physician Assistant; PCP Student in an Organized Health Care Education/Training Program
DX: L03.115 Cellulitis of right lower limb (principal)
CPT/HCPCS: 36415; 80053; 99283; 85025

== ENCOUNTER 2022-02-18 14:36 | Inpatient (IN) | payer MEDICARE, SELFPAY ==
[2022-02-18 14:41] VITALS: BP 141/80; PULSE 78; RESP 18; TEMP 36.8; O2SAT 96
--- NOTE | 2022-02-18 15:25 | ED.GENADUL_ITS ---
Discharge Plan Disposition Patient Disposition: [facility] INPATIENT Condition: Stable Discharge Details Chief Complaint: Cellulitis Clinical Impression: Cellulitis of right thigh Primary Care Provider: Christine Dey ED Provider: Marco Hardy Home Meds and New Rx's Prescriptions: No Action diazepam [Valium] 5 mg tablet 5 mg PO BID PRN Label Comments: Dr Gómez prescribes, pt takes at night to help him sleep oxycodone-acetaminophen 5-325 mg tablet 1 - 2 tab PO .5 times daily PRN gabapentin 800 mg tablet 800 mg PO TID PRN cephalexin 500 mg capsule 500 mg PO QID Qty: 28 0RF metoprolol succinate 25 mg tablet extended release 24 hr 25 mg PO DAILY Qty: 90 3RF Rx Instructions: 3rd reduction in dosing (2018) Multiple Vitamin-Minerals 1 EACH tablet 1 tab PO DAILY omeprazole 20 mg capsule,delayed release(DR/EC) 20 mg PO BID naloxone [Narcan] 4 mg/actuation spray,non-aerosol 4 mg CARLA Q2M PRNQty: 2 0RF Rx Instructions: spray 1 dose into ONE nostril; alternate nostrils w each dose until help arrives atorvastatin 40 mg Tablet 40 mg PO DAILY acetaminophen 500 mg tablet 500 mg PO Q6H PRN (Reason: pain) Qty: 60 2RF ibuprofen 600 mg tablet 600 mg PO TID PRN (Reason: pain) Qty: 60 0RF sulfamethoxazole-trimethoprim [Bactrim DS] 800-160 mg tablet 1 tab PO BID Qty: 20 0RF Medical Decision Making 61-year-old male returns after visit to the ER 2 days ago. He believes he had a spider bite, was seen as primary care physician and started on Keflex on February, seen February 16 and Bactrim was added to his regimen. He is now here with ongoing right leg erythema. He has had rigors at home. The area of cellulitis is expanding. He is currently afebrile, normotensive with a pulse of 78. Case discussed with Dr. Golden. Patient consented for standard prep and drape in a sterile fashion, anesthesia with 1% lidocaine and an incision and attempted drainage of area. The wound was packed with plain quarter inch gauze. Wound and blood cultures were obtained patient given vancomycin and Zosyn. HPI General Mode of arrival: ambulatory . Date/Time Provider Initiated Documentation: 02/18/22 14:54 . Limitations to Documentation: no limitations . Information obtained by: patient . History of Present Illness 61 year old M presents to the emergency department with the chief complaint of Worsening leg infection, described as moderate, Quality is described as dull and constant, and is localized to the right and lower extremity. Patient reports no radiation. Patient started experiencing this hour(s) and it has been constant. No relieving factors improve symptom(s), No exacerbating factors reported . Patient did receive the following treatments prior to arrival, other (Keflex and Bactrim) Related Data Home Medications Medication Instructions Recorded Confirmed multivitamin with minerals 1 tab PO DAILY 10/01/14 02/18/22 (Multiple Vitamin-Minerals tablet) diazepam 5 mg tablet (Valium) 5 mg PO BID PRN 08/26/18 02/18/22 gabapentin 800 mg tablet 800 mg PO TID PRN 11/15/19 02/18/22 naloxone 4 mg/actuation nasal 4 mg intranasal Q2M PRN #2 ea 01/05/20 02/18/22 spray (Narcan) omeprazole 20 mg capsule,delayed 20 mg PO BID 02/19/21 02/18/22 release acetaminophen 500 mg tablet 500 mg PO Q6H PRN pain #60 tabs 07/09/21 02/18/22 atorvastatin 40 mg tablet 40 mg PO DAILY 07/09/21 02/18/22 ibuprofen 600 mg tablet 600 mg PO TID PRN pain #60 tabs 07/09/21 02/18/22 oxycodone-acetaminophen 5 mg-325 1 - 2 tab PO .5 times daily PRN 11/09/21 02/18/22 mg tablet metoprolol succinate 25 mg 25 mg PO DAILY #90 tabs 11/17/21 02/18/22 tablet,extended release 24 hr cephalexin 500 mg capsule 500 mg PO QID #28 caps 02/15/22 02/18/22 sulfamethoxazole 800 1 tab PO BID #20 tabs 02/16/22 02/18/22 mg-trimethoprim 160 mg tablet (Bactrim DS) Previous Rx's Medication Instructions Recorded naloxone 4 mg/actuation nasal 4 mg intranasal Q2M PRN #2 ea 01/05/20 spray (Narcan) acetaminophen 500 mg tablet 500 mg PO Q6H PRN pain #60 tabs 07/09/21 ibuprofen 600 mg tablet 600 mg PO TID PRN pain #60 tabs 07/09/21 metoprolol succinate 25 mg 25 mg PO DAILY #90 tabs 11/17/21 tablet,extended release 24 hr cephalexin 500 mg capsule 500 mg PO QID #28 caps 02/15/22 sulfamethoxazole 800 1 tab PO BID #20 tabs 02/16/22 mg-trimethoprim 160 mg tablet (Bactrim DS) Allergies Allergy/AdvReac Type Severity Reaction Status Date / Time No Known Allergies Allergy Verified 02/18/22 14:45 General Stated Complaint: Cellulitis ROSMERY: 3 Review of Systems Narrative: No fever or chills. Sick systems reviewed and otherwise negative PFSH All Active Problems (Updated 02/18/22 @ 16:30 by Marco Hadry MD) Cellulitis of right thigh (Acute) Abscess (Acute) inner right thigh, x4 days, worsening Cellulitis of left leg (Acute) Strain of hip flexor (Acute) Trochanteric bursitis, left hip (Acute) SARS-CoV-2 positive (Acute ~12/18/21) Discontinued smoking (Acute) Chronic back pain (Chronic) Dr. Thompson (PCP in [place]) prescribes chronic pain medications for this pt Essential hypertension (Chronic) Hx HTN, low recently .. STOPPED HCTZ 01/2019 .. Lowered BB, stay @ 25mg Hyperlipidemia (Chronic) History of right hip replacement (Chronic) Superficial dehiscence of wound (Acute) Mostly irritating, draining, but significant drainage @ distal section of surg site warranting wound evaluation. Stopped triple-antibiotic in case of aggrav; trial silvadene/gauze. Hypotension (Acute 09/2018) New issue .. decreasing BB . Stay at 25mg 02/10/19 Diarrhea (Acute 03/28/15) Trochanteric bursitis, right hip (Acute) Injected: 01/15/2019, 10/22/2021 History of total replacement of right hip (Acute ~04/2018) [facility] Pain in hip region after total hip replacement (Acute) 09/01/19-repeat steroid injections. Ana Garvey MD [facility] Status post total hip replacement, left (Acute 01/04/20) Treatment for avascular necrosis of the left hip. Lung nodule, multiple (Chronic) Stable per 08/2020 CT. 04/02/[address] [facility] [address]: recommend 3-6 month f/u. 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 and/or transverse arch pathology. [ ] XR Left carpal tunnel syndrome (Acute) S/P release: 07/09/2021 Cubital tunnel syndrome on left (Acute) S/P ECTR: 07/09/2021 Elevated glucose (Acute) adding a1c Medical History Anesthesia Per pt. states in the past he has woken up violently, states at night he takes valium to shut his brain off and that works well for him. Pt. states it is related to PTSD from . Chronic back pain Degenerative joint disease of left hip HLD (hyperlipidemia) HTN (hypertension) PTSD (post-traumatic stress disorder) Surgical History back fusion (11/09/12) back surgery (11/05/05) back surgery (11/17/07) back surgery (11/08/09) Cholecystectomy (~1979) Trigger Finger release (10/11/16) RIGHT RING FINGER/DR. POWELL Family History Mother , AD at age 84. Diabetes Heart failure Dementia Father No problems noted. Sister Diabetes Sister , Hypothermia at age 43. No problems noted. Brother Mental disorder Brother No problems noted. Social History Smoking/Tobacco Use Status: Current every day Tobacco Type: pipe and cigars Per week: 14 Tobacco: How many years used: 40 Smoking risk assessment performed?: Yes Alcohol Intake: current Alcohol Intake frequency: 3 or more drinks per day Alcohol type: beer Drug use: Occasionally Substance use type: marijuana Adopted: No Foster care: No Pets and animals: Yes Pets and animals: cat(s), dog(s) and turtle(s) Current gender identity: male Duration: > 90 minutes/day Seatbelt use: always Helmet use: No Water heater temp set <120 deg: Yes Working smoke detector in home: Yes Fire extinguisher in home: Yes Carbon monox detector in home: Yes Firearms in home: Yes Firearms unloaded and locked: Yes Do you feel safe at home: Yes Do you feel safe in your relationship?: Yes Victim of physical abuse: No Victim of emotional abuse: No Victim of sexual abuse: No Additional Social history: at bedside. Exam Narrative Exam Narrative: GEN: awake, alert, oriented 3. Pleasant, well groomed, interactive. HEAD: Normocephalic, atraumatic ENT: Mucous membranes moist, oropharynx unremarkable, External ear exam unremarkable EYES: PERRL, EOMI NECK: Full ROM, no TALIA, no menigismus CHEST/RESP: Nontender, clear to auscultation bilateral, no wheeze/rhonchi/rales CARDIOVASCULAR: RRR, no murmur, rub emerson. 2+ Rad pulse bilateral ABDOMEN: Soft, nontender, no mass. +Bowel sounds EXT: Full ROM, right medial thigh with approximately 20 cm diameter area of erythema that blanches to the touch. There is central area of induration and necrosis that is tender. Neuro: Grossly normal neurologic exam, conversant, interactive. Psych: Speech fluent, thoughts congruent, affect normal Course Vital Signs Vital signs: Vital Signs Temperature 36.8 C 02/18/22 14:41 Pulse 78 02/18/22 14:41 Respiratory Rate 18 02/18/22 14:41 Blood Pressure 141/80 H 02/18/22 14:41 Pulse Oximetry 96 02/18/22 14:41 Temperature 36.8 C 02/18/22 14:41 Temperature Source Temporal Artery Scan 02/18/22 14:41 Pulse 78 02/18/22 14:41 Respiratory Rate 18 02/18/22 14:41 Respiratory Effort Non-Labored 02/18/22 14:48 Blood Pressure 141/80 H 02/18/22 14:41 Blood Pressure Position Sitting 02/18/22 14:41 Pulse Oximetry 96 02/18/22 14:41 Oxygen Delivery Method Room Air 02/18/22 14:41 Oxygen Flow Rate 0 02/18/22 14:41 Procedures Abscess I/D Local Anesthetic: Lidocaine 1% Amount of anesthesia used (mL): 2 Technique: Incised with #11 Blade Irrigation: Yes Packing used?: Plain PAWSS Have you Been Recently Intoxicated or Drunk Within the Last 30 days?: No Have you Ever Experienced Previous Episodes of Alcohol Withdrawal?: No Have you ever Experienced Withdrawal Seizures?: No Have you ever Experienced Delirium Tremens(DT)s?: No Have you ever undergone Alcohol Rehabilitation Treatment (i.e, inpt ot outpatient treatment programs)?: No Have you ever Experienced Blackouts?: No Have you ever Combined Alcohol with other Downers within the last 90 days?: No Have you ever Combined Alcohol with any other Substance of Abuse during the last 90 days?: No Positive Blood Alcohol level on Presentation? [PCS.BAL]: No Evidence of Increased Autonomic Activity (i.e. HR>120, tremor, sweating, agitation, nausea)?: No Result: 0
[2022-02-18 16:07] LABS: Lactate 0.9 mmol/L (0.6-1.4)
[2022-02-18 16:09] LABS: Abs Immature Grans 0.03 10^3/uL (0.0-0.06); Absolute Basophil Count 0.06 10^3/uL (0.0-0.2); Absolute Eosinophil Count 0.19 10^3/uL (0.0-0.7); Absolute Lymphocyte Count 1.95 10^3/uL (1.2-3.4); Absolute Monocyte Count 0.82 10^3/uL (0.1-0.8); Absolute Neutrophil Count 6.37 10^3/uL (1.2-6.7); Basophils % 0.6; HCT 40.3 % (40.0-50.0); HGB 13.8 g/dL (13.5-17.5); Immature Grans % 0.3; Lymphocytes % 20.7; MCH 31.6 pg (27.0-33.0); MCHC 34.2 % (32.0-36.0); MCV 92 fL (80-95); MPV 8.6 fL (8.0-11.0); Monocytes % 8.7; Neutrophils % 67.7; Platelet Count 206 10^3/uL (130-400); RBC 4.37 10^6/uL (4.36-5.78); RDW 11.9 % (11.8-14.1); RDW-SD 40.3 fL; WBC 9.42 10^3/uL (4.4-10.8)
[2022-02-18 16:13] LABS: ESR 37 mm/hr (0-20)
[2022-02-18] MEDS: HYDROmorphone 2 MG/ML VIAL 1 MG IVP (16:17)
[2022-02-18] MEDS: Normal Saline Flush 10 ML SYR IVP ×5 (16:18→22:23)
[2022-02-18 16:26] LABS: ALT 39 U/L (16-63); AST 25 U/L (15-37); Albumin 3.8 g/dL (3.4-5.0); Alkaline Phosphatase 60 U/L (46-116); BUN 13 mg/dL (7-18); Bilirubin, Total 0.2 mg/dL (0.2-1.0); C-Reactive Protein 3.11 mg/dL (0.0-0.3); Calcium 8.8 mg/dL (8.5-10.1); Chloride 103 mmol/L (98-107); Glucose 113 mg/dL (74-106); Potassium 3.9 mmol/L (3.5-5.1); Sodium 139 mmol/L (136-145); Total Protein 8.1 g/dL (6.4-8.2)
[2022-02-18 16:35] LABS: Source Nasal/Nares
[2022-02-18] MEDS: VANCOMYCIN 1,500 MG in Normal Saline 250 ML 166.6666 MG IVPB (16:45)
[2022-02-18] MEDS: PIPERACILLIN/TAZO 3.375 GM in Normal Saline 50 ML IVPB ×2 (16:45→21:42)
[2022-02-18 16:49] VITALS: BP 141/80; PULSE 78; RESP 18; TEMP 36.8; O2SAT 96
[2022-02-18] MEDS: Normal Saline 500 ML IV (16:52)
[2022-02-18] MEDS: Normal Saline 1,000 ML 125 ML IV (16:53)
[2022-02-18] MEDS: Acetaminophen 500 MG TAB 1000 MG PO (17:01)
[2022-02-18 17:06] VITALS: BP 162/90; PULSE 60; RESP 18; TEMP 36.8; O2SAT 96
[2022-02-18 17:09] LABS: COVID-19 PCR Negative (Negative)
[2022-02-18] MEDS: MORPHine 2 MG/ML SYR IVP ×3 (17:55→22:22)
[2022-02-18] MEDS: Enoxaparin 40 MG/0.4 ML SYR SC (17:56)
[2022-02-18] MEDS: Docusate Sodium 100 MG CAP PO (19:23)
[2022-02-18 20:03] LABS: Abs Immature Grans 0.04 10^3/uL (0.0-0.06); Absolute Basophil Count 0.04 10^3/uL (0.0-0.2); Absolute Eosinophil Count 0.17 10^3/uL (0.0-0.7); Absolute Monocyte Count 0.62 10^3/uL (0.1-0.8); Absolute Neutrophil Count 5.12 10^3/uL (1.2-6.7); Basophils % 0.5; Eosinophils % 2.1; HCT 37.1 % (40.0-50.0); HGB 12.9 g/dL (13.5-17.5); Immature Grans % 0.5; MCH 32.1 pg (27.0-33.0); MCHC 34.8 % (32.0-36.0); MCV 92 fL (80-95); MPV 8.7 fL (8.0-11.0); Monocytes % 7.8; Neutrophils % 64.1; Platelet Count 192 10^3/uL (130-400); RBC 4.02 10^6/uL (4.36-5.78); RDW 11.9 % (11.8-14.1); RDW-SD 40.4 fL; WBC 7.99 10^3/uL (4.4-10.8)
[2022-02-18 20:21] LABS: ALT 30 U/L (16-63); AST 21 U/L (15-37); Albumin 3.2 g/dL (3.4-5.0); Alkaline Phosphatase 53 U/L (46-116); Anion Gap 9.6 mmol/L (3-11); BUN 14 mg/dL (7-18); Bilirubin, Total 0.2 mg/dL (0.2-1.0); CO2 23.4 mmol/L (21.0-32.0); CREATININE 1.1 mg/dL (0.70-1.30); Calcium 8.3 mg/dL (8.5-10.1); Chloride 106 mmol/L (98-107); Glucose 140 mg/dL (74-106); Magnesium 1.8 mg/dL (1.8-2.4); Potassium 3.8 mmol/L (3.5-5.1); Sodium 139 mmol/L (136-145)
[2022-02-18 20:26] LABS: Troponin I < 50 ng/L (<or=60)
--- NOTE | 2022-02-18 20:29 | W.PM.HP.N ---
Date of service: 02/18/22 Time of Service: 16:50 Assessment and Plan Assessment and plan (1) Cellulitis of right thigh: Status: Acute Assessment and plan: I think he has a localized soft tissue infection to the posterior medial aspect of the right thigh. There is no fluctuant area, or purulent drainage after incision. There is some centralized dermal necrosis. I think starting a trial of broad-spectrum intravenous antibiotics is reasonable, and we can see how the erythema responds. There is no evidence of necrotizing soft tissue infection at this time, and I do not think there is need for active surgical debridement. Certainly, if the erythema fails to improve over the next day or so, or if his epidermolysis spreads at all, that portion may need to be debrided. History of Present Illness History of Present Illness Chief Complaint: Wound on the right thigh Narrative: Subhash is a 61-year-old male who comes into the emergency department after referral from his primary care physician for a worsening wound on the posterior medial side of his right thigh. He says it all started about a week ago when he noticed some redness and mild discomfort on the upper inner and slightly posterior portion of his right thigh. Initially, he did not think much of it, but the redness rapidly spread. He was seen by Dr. Dey and Chas. He says over the next day or so, the redness worsened, and he started to develop fevers and rigors at home. Bactrim was added, but the redness continued to spread. Additionally, the wound has become a bit more tender. Aside from the episode of some rigors the other night, his review of systems is essentially otherwise negative. Denies any sick contacts or recent travel. He has been working on his house with a fair amount of demolition, and he suspects he may have been bitten by a spider during that process. Review of Systems Constitutional Constitutional: Reports body ache(s), Denies chills, Reports fever(s), Denies malaise and Denies weakness Eyes Eyes: Denies diplopia, Denies dry eyes and Denies irritation ENT Ears, Nose, Mouth, and Throat: Denies dysphagia and Denies dizziness Cardiovascular Cardiovascular: Denies chest pain and Denies dyspnea Respiratory Respiratory: Denies chest congestion, Reports cough and Denies dyspnea Gastrointestinal Gastrointestinal: Denies abdominal pain, Denies change in bowel habits, Denies dysphagia, Denies heartburn, Denies nausea and Denies vomiting Musculoskeletal Musculoskeletal: Denies joint swelling, Denies muscle weakness, Denies numbness and Denies tingling Neurologic Neurologic: Denies dizziness, Denies numbness, Denies tingling and Denies weakness Endocrine Endocrine: Denies polyphagia Hematologic/Lymphatic Hematologic/Lymphatic: Denies easy bleeding and Denies easy bruising PFSH All Active Problems Cellulitis of right thigh (Acute) Abscess (Acute) inner right thigh, x4 days, worsening Cellulitis of left leg (Acute) Strain of hip flexor (Acute) Trochanteric bursitis, left hip (Acute) SARS-CoV-2 positive (Acute ~12/18/21) Discontinued smoking (Acute) Chronic back pain (Chronic) Dr. Thompson (PCP in [place]) prescribes chronic pain medications for this pt Essential hypertension (Chronic) Hx HTN, low recently .. STOPPED HCTZ 01/2019 .. Lowered BB, stay @ 25mg Hyperlipidemia (Chronic) History of right hip replacement (Chronic) Superficial dehiscence of wound (Acute) Mostly irritating, draining, but significant drainage @ distal section of surg site warranting wound evaluation. Stopped triple-antibiotic in case of aggrav; trial silvadene/gauze. Hypotension (Acute 09/2018) New issue .. decreasing BB . Stay at 25mg 02/10/19 Diarrhea (Acute 03/28/15) Trochanteric bursitis, right hip (Acute) Injected: 01/15/2019, 10/22/2021 History of total replacement of right hip (Acute ~04/2018) [facility] [place] Pain in hip region after total hip replacement (Acute) 09/01/19-repeat steroid injections. Ana Garvey MD [facility] [place] Status post total hip replacement, left (Acute 01/04/20) Treatment for avascular necrosis of the left hip. Lung nodule, multiple (Chronic) Stable per 08/2020 CT. 04/02/[address] [facility] [address]: recommend 3-6 month f/u. 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 and/or transverse arch pathology. [ ] XR Left carpal tunnel syndrome (Acute) S/P release: 07/09/2021 Cubital tunnel syndrome on left (Acute) S/P ECTR: 07/09/2021 Elevated glucose (Acute) adding a1c Medical History Anesthesia Per pt. states in the past he has woken up violently, states at night he takes valium to shut his brain off and that works well for him. Pt. states it is related to PTSD from . Chronic back pain Degenerative joint disease of left hip HLD (hyperlipidemia) HTN (hypertension) PTSD (post-traumatic stress disorder) Surgical History back fusion (11/09/12) back surgery (11/05/05) back surgery (11/17/07) back surgery (11/08/09) Cholecystectomy (~1979) Trigger Finger release (10/11/16) RIGHT RING FINGER/DR. POWELL Family History Mother , AD at age 84. Diabetes Heart failure Dementia Father No problems noted. Sister Diabetes Sister , Hypothermia at age 43. No problems noted. Brother Mental disorder Brother No problems noted. Social History Smoking/Tobacco Use Status: Current every day Tobacco Type: pipe and cigars Per week: 14 Tobacco: How many years used: 40 Smoking risk assessment performed?: Yes Alcohol Intake: current Alcohol Intake frequency: 3 or more drinks per day Alcohol type: beer Drug use: Occasionally Substance use type: marijuana Adopted: No Foster care: No Pets and animals: Yes Pets and animals: cat(s), dog(s) and turtle(s) Current gender identity: male Duration: > 90 minutes/day Seatbelt use: always Helmet use: No Water heater temp set <120 deg: Yes Working smoke detector in home: Yes Fire extinguisher in home: Yes Carbon monox detector in home: Yes Firearms in home: Yes Firearms unloaded and locked: Yes Do you feel safe at home: Yes Do you feel safe in your relationship?: Yes Victim of physical abuse: No Victim of emotional abuse: No Victim of sexual abuse: No Additional Social history: at bedside. Meds Allergies and Home Medications Allergies Allergy/AdvReac Type Severity Reaction Status Date / Time No Known Allergies Allergy Verified 02/18/22 14:45 Home Medications Medication Instructions Recorded Confirmed Type multivitamin with minerals 1 tab PO DAILY 10/01/14 02/18/22 History (Multiple Vitamin-Minerals tablet) diazepam 5 mg tablet (Valium) 5 mg PO BID PRN 08/26/18 02/18/22 History gabapentin 800 mg tablet 800 mg PO TID PRN 11/15/19 02/18/22 History naloxone 4 mg/actuation nasal 4 mg intranasal Q2M PRN #2 ea 01/05/20 02/18/22 Rx spray (Narcan) omeprazole 20 mg capsule,delayed 20 mg PO BID 02/19/21 02/18/22 History release acetaminophen 500 mg tablet 500 mg PO Q6H PRN pain #60 tabs 07/09/21 02/18/22 Rx atorvastatin 40 mg tablet 40 mg PO DAILY 07/09/21 02/18/22 History ibuprofen 600 mg tablet 600 mg PO TID PRN pain #60 tabs 07/09/21 02/18/22 Rx oxycodone-acetaminophen 5 mg-325 1 - 2 tab PO .5 times daily PRN 11/09/21 02/18/22 History mg tablet metoprolol succinate 25 mg 25 mg PO DAILY #90 tabs 11/17/21 02/18/22 Rx tablet,extended release 24 hr cephalexin 500 mg capsule 500 mg PO QID #28 caps 02/15/22 02/18/22 Rx sulfamethoxazole 800 1 tab PO BID #20 tabs 02/16/22 02/18/22 Rx mg-trimethoprim 160 mg tablet (Bactrim DS) Exam Const General: cooperative, healthy appearing and comfortable Orientation: awake and oriented x3 Eyes General: appearance normal, both eyes and all related structures Conjunctivae: conjunctivae normal Sclera: sclerae normal Resp Effort & Inspection: normal respiratory effort and able to speak in complete sentences Cardio Jugular venous pressure: no JVD Rate: regular rate GI Inspection: non-distended Palpation: soft, no guarding, no hernias and nontender Auscultation: normal bowel sounds Skin General skin exam: normal turgor Wounds: wounds noted (There is erythema with central necrosis on the right posterior medial thigh) Neuro General: patient alert, patient awake and patient oriented x3 Cognition: normal cognition Extrem Right lower extremity: full ROM and hip/thigh Details: tenderness and swelling; no edema Left lower extremity: no edema Results Labs Result diagrams: 02/18/22 19:48 02/18/22 19:48 Labs: Laboratory Results - last 24 hr 02/18/22 02/18/22 02/18/22 15:55 15:55 15:55 WBC RBC Hgb Hct MCV MCH MCHC RDW Plt Count MPV Immature Gran % Neutrophils % Lymphocytes % Monocytes % Eosinophils % Basophils % Nucleated RBC % Absolute Neutrophils Absolute Lymphocytes Absolute Monocytes Absolute Eosinophils Absolute Basophils ESR 37 H VBG Lactate 0.9 Sodium 139 Potassium 3.9 Chloride 103 Carbon Dioxide 25.0 Anion Gap 11.0 BUN 13 Creatinine 1.0 Estimated GFR/1.73 m2 >= 60.00 Glucose 113 H Calcium 8.8 Magnesium Total Bilirubin 0.2 AST 25 ALT 39 Alkaline Phosphatase 60 Troponin I C-Reactive Protein 3.11 H Total Protein 8.1 Albumin 3.8 COVID-19 Source SARS-CoV-2 (PCR) 02/18/22 02/18/22 02/18/22 15:55 16:00 16:31 WBC 9.42 RBC 4.37 Hgb 13.8 Hct 40.3 MCV 92 MCH 31.6 MCHC 34.2 RDW 11.9 Plt Count 206 MPV 8.6 Immature Gran % 0.3 Neutrophils % 67.7 Lymphocytes % 20.7 Monocytes % 8.7 Eosinophils % 2.0 Basophils % 0.6 Nucleated RBC % 0.0 Absolute Neutrophils 6.37 Absolute Lymphocytes 1.95 Absolute Monocytes 0.82 H Absolute Eosinophils 0.19 Absolute Basophils 0.06 ESR VBG Lactate Sodium Potassium Chloride Carbon Dioxide Anion Gap BUN Creatinine Estimated GFR/1.73 m2 Glucose Calcium Magnesium Total Bilirubin AST ALT Alkaline Phosphatase Troponin I Cancelled C-Reactive Protein Total Protein Albumin COVID-19 Source Nasal/Nares SARS-CoV-2 (PCR) Negative 02/18/22 02/18/22 02/18/22 19:48 19:48 19:48 WBC 7.99 RBC 4.02 L Hgb 12.9 L Hct 37.1 L MCV 92 MCH 32.1 MCHC 34.8 RDW 11.9 Plt Count 192 MPV 8.7 Immature Gran % 0.5 Neutrophils % 64.1 Lymphocytes % 25.0 Monocytes % 7.8 Eosinophils % 2.1 Basophils % 0.5 Nucleated RBC % 0.0 Absolute Neutrophils 5.12 Absolute Lymphocytes 2.00 Absolute Monocytes 0.62 Absolute Eosinophils 0.17 Absolute Basophils 0.04 ESR VBG Lactate Sodium 139 Potassium 3.8 Chloride 106 Carbon Dioxide 23.4 Anion Gap 9.6 BUN 14 Creatinine 1.1 Estimated GFR/1.73 m2 >= 60.00 Glucose 140 H Calcium 8.3 L Magnesium 1.8 Total Bilirubin 0.2 AST 21 ALT 30 Alkaline Phosphatase 53 Troponin I < 50 C-Reactive Protein Total Protein 7.0 Albumin 3.2 L COVID-19 Source SARS-CoV-2 (PCR) Last Vital Signs Temp 98.2 F 02/18/22 17:06 Pulse 60 02/18/22 17:06 Resp 18 02/18/22 17:06 BP 162/90 H 02/18/22 17:06 Pulse Ox 96 02/18/22 17:06 PAWSS Have you Been Recently Intoxicated or Drunk Within the Last 30 days?: No Have you Ever Experienced Previous Episodes of Alcohol Withdrawal?: No Have you ever Experienced Withdrawal Seizures?: No Have you ever Experienced Delirium Tremens(DT)s?: No Have you ever undergone Alcohol Rehabilitation Treatment (i.e, inpt ot outpatient treatment programs)?: No Have you ever Experienced Blackouts?: No Have you ever Combined Alcohol with other Downers within the last 90 days?: No Have you ever Combined Alcohol with any other Substance of Abuse during the last 90 days?: No Positive Blood Alcohol level on Presentation? [PCS.BAL]: No Evidence of Increased Autonomic Activity (i.e. HR>120, tremor, sweating, agitation, nausea)?: No Result: 0
[2022-02-18 22:51] VITALS: BP 116/72; PULSE 62; RESP 18; TEMP 36.7; O2SAT 98
[2022-02-19] MEDS: Normal Saline 1,000 ML 125 ML IV ×3 (01:19→18:32)
[2022-02-19] MEDS: MORPHine 2 MG/ML SYR IVP ×6 (01:24→22:03)
[2022-02-19] MEDS: Normal Saline Flush 10 ML SYR IVP ×2 (01:25→11:20)
[2022-02-19] MEDS: PIPERACILLIN/TAZO 3.375 GM in Normal Saline 50 ML IVPB ×4 (03:21→22:02)
[2022-02-19] MEDS: VANCOMYCIN/WATER (PEG) 1.5 GM/300 ML BAG IV ×2 (03:54→16:15)
[2022-02-19 06:08] LABS: Abs Immature Grans 0.02 10^3/uL (0.0-0.06); Absolute Basophil Count 0.04 10^3/uL (0.0-0.2); Absolute Eosinophil Count 0.22 10^3/uL (0.0-0.7); Absolute Lymphocyte Count 1.92 10^3/uL (1.2-3.4); Absolute Monocyte Count 0.71 10^3/uL (0.1-0.8); Absolute Neutrophil Count 3.96 10^3/uL (1.2-6.7); Basophils % 0.6; Eosinophils % 3.2; HCT 36.3 % (40.0-50.0); HGB 12.6 g/dL (13.5-17.5); Immature Grans % 0.3; Lymphocytes % 27.9; MCH 32.1 pg (27.0-33.0); MCHC 34.7 % (32.0-36.0); MCV 93 fL (80-95); MPV 8.7 fL (8.0-11.0); Monocytes % 10.3; Neutrophils % 57.7; Platelet Count 178 10^3/uL (130-400); RBC 3.92 10^6/uL (4.36-5.78); RDW 12.1 % (11.8-14.1); RDW-SD 41.1 fL; WBC 6.87 10^3/uL (4.4-10.8)
[2022-02-19 07:15] VITALS: BP 150/99; PULSE 54; RESP 18; TEMP 36.5; O2SAT 98
--- NOTE | 2022-02-19 07:20 | W.PM.PROGNOT ---
Date of Service Date of service: 02/19/22 Time of Service: 07:20 Assessment and Plan Assessment and plan (1) Cellulitis of right thigh: Status: Acute Assessment and plan: I think he has a localized soft tissue infection to the posterior medial aspect of the right thigh. Erythema is improving on IV antibiotics Cx pending P: Continue on broad spectrum Abx for now until we have Cx back At this time there is no need for debridement. Will continue to monitor Subjective Subjective Interval history since last seen: Mr. Olivares is doing well this morning. He states that the erythema seems to be getting a little better. His biggest complaint is a burning sensation over the wound. He thinks that he was bitten by a spider. No fevers overnight. Exam Const General: comfortable and no acute distress HENRI Head: normocephalic and atraumatic Resp Effort & Inspection: normal respiratory effort Auscultation: clear to auscultation bilaterally Cardio Rate: regular rate Rhythm: regular rhythm Skin Other: Right thigh: the erythema is starting to improve. It has not gone past the last drawn [place]. Objective Last Vital Signs Temp 97.7 F 02/19/22 07:15 Pulse 54 L 02/19/22 07:15 Resp 18 02/19/22 07:15 BP 150/99 H 02/19/22 07:15 Pulse Ox 98 02/19/22 07:15 Laboratory Results - last 24 hr 02/18/22 02/18/22 02/18/22 15:55 15:55 15:55 WBC RBC Hgb Hct MCV MCH MCHC RDW Plt Count MPV Immature Gran % Neutrophils % Lymphocytes % Monocytes % Eosinophils % Basophils % Nucleated RBC % Absolute Neutrophils Absolute Lymphocytes Absolute Monocytes Absolute Eosinophils Absolute Basophils ESR 37 H VBG Lactate 0.9 Sodium 139 Potassium 3.9 Chloride 103 Carbon Dioxide 25.0 Anion Gap 11.0 BUN 13 Creatinine 1.0 Estimated GFR/1.73 m2 >= 60.00 Glucose 113 H Calcium 8.8 Magnesium Total Bilirubin 0.2 AST 25 ALT 39 Alkaline Phosphatase 60 Troponin I C-Reactive Protein 3.11 H Total Protein 8.1 Albumin 3.8 COVID-19 Source SARS-CoV-2 (PCR) 02/18/22 02/18/22 02/18/22 15:55 16:00 16:31 WBC 9.42 RBC 4.37 Hgb 13.8 Hct 40.3 MCV 92 MCH 31.6 MCHC 34.2 RDW 11.9 Plt Count 206 MPV 8.6 Immature Gran % 0.3 Neutrophils % 67.7 Lymphocytes % 20.7 Monocytes % 8.7 Eosinophils % 2.0 Basophils % 0.6 Nucleated RBC % 0.0 Absolute Neutrophils 6.37 Absolute Lymphocytes 1.95 Absolute Monocytes 0.82 H Absolute Eosinophils 0.19 Absolute Basophils 0.06 ESR VBG Lactate Sodium Potassium Chloride Carbon Dioxide Anion Gap BUN Creatinine Estimated GFR/1.73 m2 Glucose Calcium Magnesium Total Bilirubin AST ALT Alkaline Phosphatase Troponin I Cancelled C-Reactive Protein Total Protein Albumin COVID-19 Source Nasal/Nares SARS-CoV-2 (PCR) Negative 02/18/22 02/18/22 02/18/22 19:48 19:48 19:48 WBC 7.99 RBC 4.02 L Hgb 12.9 L Hct 37.1 L MCV 92 MCH 32.1 MCHC 34.8 RDW 11.9 Plt Count 192 MPV 8.7 Immature Gran % 0.5 Neutrophils % 64.1 Lymphocytes % 25.0 Monocytes % 7.8 Eosinophils % 2.1 Basophils % 0.5 Nucleated RBC % 0.0 Absolute Neutrophils 5.12 Absolute Lymphocytes 2.00 Absolute Monocytes 0.62 Absolute Eosinophils 0.17 Absolute Basophils 0.04 ESR VBG Lactate Sodium 139 Potassium 3.8 Chloride 106 Carbon Dioxide 23.4 Anion Gap 9.6 BUN 14 Creatinine 1.1 Estimated GFR/1.73 m2 >= 60.00 Glucose 140 H Calcium 8.3 L Magnesium 1.8 Total Bilirubin 0.2 AST 21 ALT 30 Alkaline Phosphatase 53 Troponin I < 50 C-Reactive Protein Total Protein 7.0 Albumin 3.2 L COVID-19 Source SARS-CoV-2 (PCR) 02/19/22 05:42 WBC 6.87 RBC 3.92 L Hgb 12.6 L Hct 36.3 L MCV 93 MCH 32.1 MCHC 34.7 RDW 12.1 Plt Count 178 MPV 8.7 Immature Gran % 0.3 Neutrophils % 57.7 Lymphocytes % 27.9 Monocytes % 10.3 Eosinophils % 3.2 Basophils % 0.6 Nucleated RBC % 0.0 Absolute Neutrophils 3.96 Absolute Lymphocytes 1.92 Absolute Monocytes 0.71 Absolute Eosinophils 0.22 Absolute Basophils 0.04 ESR VBG Lactate Sodium Potassium Chloride Carbon Dioxide Anion Gap BUN Creatinine Estimated GFR/1.73 m2 Glucose Calcium Magnesium Total Bilirubin AST ALT Alkaline Phosphatase Troponin I C-Reactive Protein Total Protein Albumin COVID-19 Source SARS-CoV-2 (PCR) PAWSS Have you Been Recently Intoxicated or Drunk Within the Last 30 days?: No Have you Ever Experienced Previous Episodes of Alcohol Withdrawal?: No Have you ever Experienced Withdrawal Seizures?: No Have you ever Experienced Delirium Tremens(DT)s?: No Have you ever undergone Alcohol Rehabilitation Treatment (i.e, inpt ot outpatient treatment programs)?: No Have you ever Experienced Blackouts?: No Have you ever Combined Alcohol with other Downers within the last 90 days?: No Have you ever Combined Alcohol with any other Substance of Abuse during the last 90 days?: No Positive Blood Alcohol level on Presentation? [PCS.BAL]: No Evidence of Increased Autonomic Activity (i.e. HR>120, tremor, sweating, agitation, nausea)?: No Result: 0
[2022-02-19] MEDS: Docusate Sodium 100 MG CAP PO (07:39)
[2022-02-19] MEDS: Psyllium PKT 1 EACH PO (07:39)
[2022-02-19] MEDS: Omeprazole 20 MG CAPCR PO ×2 (07:39→22:02)
[2022-02-19] MEDS: Atorvastatin 40 MG TAB PO (07:58)
[2022-02-19 08:00] VITALS: PULSE 62
[2022-02-19] MEDS: Metoprolol CR 25 MG TABCR PO (08:00)
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
--- NOTE | 2022-02-19 14:51 | PHACLINREV_ITS ---
Pharmacy Admission Review - Admission Clinical Review (Last Reviewed 02/18/22 @ 20:33 by Remberto Golden MD) Cellulitis of right thigh (Acute) No Known Allergies Allergy (Verified 02/18/22 14:45) Resuscitation Status Full Code Height 5 ft 6 in Weight 92.533 kg - Renal Dosing Renal Dosing: BUN 14 mg/dL (7-18) 02/18/22 19:48 Creatinine 1.1 mg/dL (0.70-1.30) 02/18/22 19:48 Medications needing adjustments: Reviewed (Crcl ~77 mL/min, current meds okay) - Anticoagulation Anticoagulation: Hgb 12.6 g/dL (13.5-17.5) L 02/19/22 05:42 Hct 36.3 % (40.0-50.0) L 02/19/22 05:42 Plt Count 178 10^3/uL (130-400) 02/19/22 05:42 Creatinine 1.1 mg/dL (0.70-1.30) 02/18/22 19:48 DVT Prophylaxis: Reviewed Medications: Enoxaparin Therapeutic Anticoagulation: N/A - Opiate Usage Evaluate Pain Scale/Pains Meds: Reviewed Scheduled Bowel Reg ordered if on Opiates?: Yes - Relevant Labs ESR 37 mm/hr (0-20) H 02/18/22 15:55 Sodium 139 mmol/L (136-145) 02/18/22 19:48 Potassium 3.8 mmol/L (3.5-5.1) 02/18/22 19:48 Chloride 106 mmol/L (98-107) 02/18/22 19:48 Magnesium 1.8 mg/dL (1.8-2.4) 02/18/22 19:48 C-Reactive Protein 3.11 mg/dL (0.0-0.3) H 02/18/22 15:55 Electrolytes, C-Reactive P, ESR: Reviewed - DM Control DM Control: Glucose 140 mg/dL (74-106) H 02/18/22 19:48 Insulin Dosing: N/A (No DM noted in pt's medical history, previous A1c 5.4 on 06/20/21) - Heart Failure/LA Heart Failure/LA: Troponin I < 50 ng/L (<or=60) 02/18/22 19:48 EF%, JARRED's, B-Blockers, Diuretics: Reviewed - BP Control BP Control: Blood Pressure 150/99 If elevated: Reviewed (BP has been elevated most of admission so far. Pt. has metoprolol ordered.) - Qtc Review If Elevated: N/A - IV to PO Switch IV Medications: Reviewed - Home Meds Home Med List reviewed: Intervened (Med list in [employer] has the gabapentin listed as PRN, per the external med history the last Rx filled was scheduled for chronic pain, per nursing the pt takes about once a day PRN. The provider was informed of this information.) - Current meds Current Medication Order Review: Intervened (Discontinued duplicate med orders.) - Comments Comments/Follow Ups: Watch BP, labs, for culture results and for med changes. Vanco trough ordered for tomorrow afternoon. Antibiotic Activity - Pharmacy Antibiotic Review Pharmacy Antibiotic Activity: Reviewed, no change (Vanco and zosyn ordered for cellulitis (day 2). Blood cultures are pending, wound culture gram stain shows rare gram positive cocci.)
[2022-02-19 15:19] VITALS: BP 124/80; PULSE 59; RESP 18; TEMP 36.1; O2SAT 97
[2022-02-19] MEDS: Enoxaparin 40 MG/0.4 ML SYR SC (15:56)
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
[2022-02-19] MEDS: oxyCODONE 5 mg/Acetaminophen 325 mg TAB PO (18:31)
[2022-02-19 21:49] VITALS: BP 148/90; PULSE 57; RESP 19; TEMP 36.8; O2SAT 97
[2022-02-19] MEDS: diazePAM 5 MG TAB PO (22:47)
[2022-02-19] MEDS: oxyCODONE 10 MG TAB PO (22:47)
[2022-02-19] MEDS: Gabapentin 300 MG CAP 600 MG PO (22:47)
[2022-02-20] MEDS: Normal Saline 1,000 ML 125 ML IV ×2 (02:37→12:39)
[2022-02-20] MEDS: PIPERACILLIN/TAZO 3.375 GM in Normal Saline 50 ML IVPB ×4 (03:42→21:21)
[2022-02-20] MEDS: VANCOMYCIN/WATER (PEG) 1.5 GM/300 ML BAG IV (04:36)
--- NOTE | 2022-02-20 06:15 | W.PM.PROGNOT ---
Date of Service Date of service: 02/20/22 Time of Service: 06:15 Assessment and Plan Assessment and plan (1) Cellulitis of right thigh: Status: Acute Assessment and plan: I think he has a localized soft tissue infection to the posterior medial aspect of the right thigh. Erythema is improving on IV antibiotics Cx with no growth in 24 hours. I will de-escalate the abx and stop vanco P: Continue on Zosyn At this time there is no need for debridement. Will continue to monitor Possibly home today Will change dressing later today Subjective Subjective Interval history since last seen: Patient slept well last night. No new complaints. He is afebrile Exam Skin Other: Right medial thigh- Marked improvement in the erythema. Less pain Objective Last Vital Signs Temp 98.2 F 02/19/22 21:49 Pulse 57 L 02/19/22 21:49 Resp 19 02/19/22 21:49 BP 148/90 H 02/19/22 21:49 Pulse Ox 97 02/19/22 21:49 PAWSS Have you Been Recently Intoxicated or Drunk Within the Last 30 days?: No Have you Ever Experienced Previous Episodes of Alcohol Withdrawal?: No Have you ever Experienced Withdrawal Seizures?: No Have you ever Experienced Delirium Tremens(DT)s?: No Have you ever undergone Alcohol Rehabilitation Treatment (i.e, inpt ot outpatient treatment programs)?: No Have you ever Experienced Blackouts?: No Have you ever Combined Alcohol with other Downers within the last 90 days?: No Have you ever Combined Alcohol with any other Substance of Abuse during the last 90 days?: No Positive Blood Alcohol level on Presentation? [PCS.BAL]: No Evidence of Increased Autonomic Activity (i.e. HR>120, tremor, sweating, agitation, nausea)?: No Result: 0
[2022-02-20 06:25] VITALS: BP 138/87; PULSE 61; RESP 19; TEMP 35.8; O2SAT 98
[2022-02-20] MEDS: oxyCODONE 10 MG TAB PO ×3 (06:34→19:20)
[2022-02-20 07:10] LABS: C-Reactive Protein 0.95 mg/dL (0.0-0.3)
[2022-02-20 07:15] VITALS: BP 126/82; PULSE 70; RESP 16; TEMP 36.5; O2SAT 97
[2022-02-20] MEDS: Metoprolol CR 25 MG TABCR PO (07:57)
[2022-02-20] MEDS: Atorvastatin 40 MG TAB PO (07:57)
[2022-02-20] MEDS: Omeprazole 20 MG CAPCR PO ×2 (08:03→19:20)
--- NOTE | 2022-02-20 09:52 | CMPROGNOTE_ITS ---
- If Service Date Differs Date of service: 02/20/22 Time of Service: 09:52 Care Management Progress Note S/O: Subhash was lying in bed when CM met with him. He is alert, oriented and easy to engage in conversation. He shares that he is happy the redness is improving. Cultures are pending. Subhash expresses that he's having a hard time being laid up in bed because he's the type of person that needs to keep moving. Per Surgeon, Subhash may discharge later today. CM will follow. A: 61 year male admitted to [facility] on 02/18/22 for Soft tissue infection P: Subhash requires IV abx and close monitoring. Anticipate, pt will discharge home via private vehicle with family when medically ready. He will follow up with community providers and discharge plan of care as prescribed.
[2022-02-20 15:30] LABS: Vancomycin, Trough 14.5 ug/mL (10.0-20.0)
[2022-02-20] MEDS: Enoxaparin 40 MG/0.4 ML SYR SC (15:36)
[2022-02-20 15:55] VITALS: BP 130/73; PULSE 62; RESP 16; TEMP 37; O2SAT 97
[2022-02-20] MEDS: Gabapentin 300 MG CAP 600 MG PO (21:18)
[2022-02-20] MEDS: Normal Saline Flush 10 ML SYR IVP (21:20)
[2022-02-20] MEDS: diazePAM 5 MG TAB PO (22:33)
[2022-02-21 00:35] VITALS: BP 130/81; PULSE 63; RESP 16; TEMP 36.6; O2SAT 97
[2022-02-21] MEDS: Normal Saline Flush 10 ML SYR IVP ×5 (03:55→17:31)
[2022-02-21] MEDS: PIPERACILLIN/TAZO 3.375 GM in Normal Saline 50 ML IVPB ×4 (03:57→21:53)
[2022-02-21] MEDS: oxyCODONE 10 MG TAB PO ×3 (04:13→17:30)
[2022-02-21 08:31] VITALS: BP 141/89; PULSE 59; RESP 18; TEMP 36; O2SAT 98
[2022-02-21] MEDS: Metoprolol CR 25 MG TABCR PO (08:42)
[2022-02-21] MEDS: Omeprazole 20 MG CAPCR PO ×2 (08:42→20:24)
[2022-02-21] MEDS: Atorvastatin 40 MG TAB PO (08:43)
--- NOTE | 2022-02-21 09:09 | PDOC.CMPRO ---
- If Service Date Differs Date of service: 02/21/22 Time of Service: 09:09 Care Management Progress Note S/O: Subhash requires inpatient admission to monitor and treat cellulites of his right thigh. He is quite certain he was bit by a brown recluse spider although he did not see it. Pt remains in IV abx and requires pain management. Subhash is alert, oriented and easy to engage in conversation. He is up independently in his room. He is being followed by Surgical. A: 61 year male admitted to [facility] on 02/18/22 for Soft tissue infection P: Subhash requires IV abx and close monitoring. Anticipate, pt will discharge home via private vehicle with family when medically ready. He will follow up with community providers and discharge plan of care as prescribed.
[2022-02-21] MEDS: Normal Saline 500 ML 30 ML IV (10:35)
--- NOTE | 2022-02-21 13:17 | W.PM.PROGNOT ---
Date of Service Date of service: 02/21/22 Time of Service: 13:17 Assessment and Plan Assessment and plan (1) Cellulitis of right thigh: Status: Acute Assessment and plan: -cultures came back as sterile, however patient had been on Keflex for 3 days prior to I&D being performed. -Patient is on a 5 of Zosyn. -Plan to DC home in a.m. We will continue Augmentin for 2 days -Dressings: Wound gel and 4 x 4 bordered gauze dressing. DC in a.m.- (2) Abscess: Status: Acute (3) Discontinued smoking: Status: Acute (4) Essential hypertension: Status: Chronic (5) Hyperlipidemia: Status: Chronic (6) History of right hip replacement: Status: Chronic (7) Superficial dehiscence of wound: Status: Acute (8) Hypotension: Status: Acute (9) Diarrhea: Status: Acute (10) HLD (hyperlipidemia): (11) HTN (hypertension): Subjective Subjective Interval history since last seen: The pt.?has been having no nausea or vomiting; no chest pain, shortness of breath or productive cough. ? Patient has been urinating without any difficulties and moving bowel w/ no straining or bleeding. No problems with diarrhea (continues to eat yogurt daily if on abx).? No fever/chills/sweats.?? Patient has no calf pain swelling, tenderness, or redness.? Patient has been sleeping at night with no problems.? Patient has been ambulating without difficulty.? Patient has been able to tolerate a regular diet.? Patient has had good relief with previously prescribed pain meds.? The pt motor/sensory/vascular status is intact without any signs of acute or chronic ischemia. Past Medical, social, family histories, medications, and allergies reviewed and updated ROS: 4 point ROS neg other than the symptoms noted above in the HPI. Size:? Length???2 ?cm Width?1?? cm Depth??? 1?cm Undermining: no Wound Base: ?granular: minimal ? Slough: none Surrounding Tissue: redness/echymosis & assoc swelling. Nursing states the swelling and redness have gone down significantly since admission. Pain: minimal Signs of infection: resolving Abx: Zosyn IV Wound location: Right medial thigh Vascular status:? good DP pulses Protein status:? unknown Pressure offloading: N/A Smoker:? former Diabetes: no Objective Last Vital Signs Temp 36.0 C L 02/21/22 08:31 Pulse 59 L 02/21/22 08:31 Resp 18 02/21/22 08:31 BP 141/89 H 02/21/22 08:31 Pulse Ox 98 02/21/22 08:31 Laboratory Results - last 24 hr 02/20/22 15:05 Vancomycin Trough 14.5 PAWSS Have you Been Recently Intoxicated or Drunk Within the Last 30 days?: No Have you Ever Experienced Previous Episodes of Alcohol Withdrawal?: No Have you ever Experienced Withdrawal Seizures?: No Have you ever Experienced Delirium Tremens(DT)s?: No Have you ever undergone Alcohol Rehabilitation Treatment (i.e, inpt ot outpatient treatment programs)?: No Have you ever Experienced Blackouts?: No Have you ever Combined Alcohol with other Downers within the last 90 days?: No Have you ever Combined Alcohol with any other Substance of Abuse during the last 90 days?: No Positive Blood Alcohol level on Presentation? [PCS.BAL]: No Evidence of Increased Autonomic Activity (i.e. HR>120, tremor, sweating, agitation, nausea)?: No Result: 0
[2022-02-21] MEDS: MORPHine 2 MG/ML SYR IVP ×2 (14:11→16:22)
[2022-02-21 15:42] VITALS: BP 134/90; PULSE 66; RESP 20; TEMP 36.4; O2SAT 97
[2022-02-21] MEDS: Enoxaparin 40 MG/0.4 ML SYR SC (16:22)
--- NOTE | 2022-02-21 19:26 | DSE_ITS ---
DS: Diagnosis Discharge Diagnosis (1) Cellulitis of right thigh: Status: Acute (2) Abscess: Status: Acute (3) Discontinued smoking: Status: Acute (4) Essential hypertension: Status: Chronic (5) Hyperlipidemia: Status: Chronic (6) History of right hip replacement: Status: Chronic (7) Superficial dehiscence of wound: Status: Acute (8) Hypotension: Status: Acute (9) Diarrhea: Status: Acute (10) HLD (hyperlipidemia): (11) HTN (hypertension): Discharge Plan Disposition Patient Disposition: HOME Condition: Stable Discharge Details Reason For Visit: Soft Tissue Infection Admit Date/Time: 02/18/22 16:01 Admit Provider: Remberto Golden Attending Provider: Remberto Golden Primary Care Provider: Christine Dey Home Meds and New Rx's Prescriptions: Continued diazepam [Valium] 5 mg tablet 5 mg PO BID PRN Label Comments: Dr Gómez prescribes, pt takes at night to help him sleep oxycodone-acetaminophen 5-325 mg tablet 1 - 2 tab PO .5 times daily PRN gabapentin 800 mg tablet 800 mg PO TID PRN metoprolol succinate 25 mg tablet extended release 24 hr 25 mg PO DAILY Qty: 90 3RF Rx Instructions: 3rd reduction in dosing (2019) Multiple Vitamin-Minerals 1 EACH tablet 1 tab PO DAILY omeprazole 20 mg capsule,delayed release(DR/EC) 20 mg PO BID naloxone [Narcan] 4 mg/actuation spray,non-aerosol 4 mg CARLA Q2M PRNQty: 2 0RF Rx Instructions: spray 1 dose into ONE nostril; alternate nostrils w each dose until help arrives atorvastatin 40 mg Tablet 40 mg PO DAILY acetaminophen 500 mg tablet 500 mg PO Q6H PRN (Reason: pain) Qty: 60 2RF ibuprofen 600 mg tablet 600 mg PO TID PRN (Reason: pain) Qty: 60 0RF Discontinued cephalexin 500 mg capsule 500 mg PO QID Qty: 28 0RF sulfamethoxazole-trimethoprim [Bactrim DS] 800-160 mg tablet 1 tab PO BID Qty: 20 0RF Discharge Instructions Additional Instructions: Keep an ice bag on the incision. 20 minutes on and 20 minutes off. Ice keeps the swelling down and swelling causes pain. Make sure you wrap the ice pack in a towel and don't apply directly to the skin. -No driving if you are taking pain medications. -If you have madai or sutures in place, they will be removed at your clinic appointment in 7-10 days. -Do Not remove any steri tapes (white tapes) that cover the incision. If you have steri-tapes on your incision, do not use antibacterial ointment. -Follow-up with Dr. Mock in 1 week. -soft diet: No beef/pork raw vegetables x1 -week. Cooked vegetables are fine -no straining to move bowels -pain meds are very constipating: if you do not move your bowels daily take a dose of OTC milk of magnesia -It is ok to shower. No bathe, soaking, swimming or hot tubs -Keep wound clean and dry. Wash incision with soap and water daily. Pat dry, don't rub. -If you do not have steri-tapes on your incision, than keep the wound covered with a gauze and antibacterial ointment. -Protein supplements daily. You may find that your appetite is smaller. Eat 3-6 small meals throughout the day. It is important to drink lots of water after surgery, 6-10 glasses a day. -If you were given an incentive spirometry (breathing correctional sergeant?), continue to do this 10x/hour while awake. -We do want you up walking, at least 5-6 times per day. This is very important to prevent pneumonia and blood clots. You can climb stairs, take them slowly. -No lifting over 5 pounds. This is very important to avoid developing a hernia in your incision. -You may find that you are very tired after surgery- this is normal. -please do not smoke for a minimum of 72 hours after surgery. DS: Data Vitals/I&O Vitals and I&O: Vital Signs Temperature 36.4 C L 02/21/22 15:42 Temperature Source Tympanic 02/21/22 15:42 Pulse 66 02/21/22 15:42 Pulse Rhythm Regular 02/21/22 08:45 Respiratory Rate 20 02/21/22 15:42 Respiratory Effort Non-Labored 02/21/22 08:45 Respiratory Depth Normal 02/21/22 08:45 Respiratory Pattern Normal 02/21/22 08:45 Blood Pressure 134/90 02/21/22 15:42 Blood Pressure Position Sitting 02/18/22 14:41 Pulse Oximetry 97 02/21/22 15:42 Oxygen Delivery Method Room Air 02/21/22 15:42 Oxygen Flow Rate 0 02/21/22 15:42 Pain Level 4 02/21/22 17:30 Comment 02/19/22 07:15 Intake & Output 02/20/22 02/21/22 02/21/22 23:59 11:59 23:59 Intake Total 1210.417 / 4710.417 1000.5 / 1550.5 550 / 1550.5 Output Total 1200 / 3500 950 / 1300 350 / 1300 Balance 10.417 / 1210.417 50.5 / 250.5 200 / 250.5 Intake: IV 510.417 / 3010.417 100.5 / 230.5 130 / 230.5 Oral 700 / 1700 900 / 1320 420 / 1320 Output: Urine 1200 / 3500 950 / 1300 350 / 1300 Other: Urine Color Yellow Straw Yellow Urine Appearance Clear Clear Clear Urine Odor None Normal Normal Comment Voids independently in toilet Void x1 in the urinal. Voiding Methods Toilet Toilet Urinal Urinal Urinal Data Completed and Pending Labs on day of discharge: Preliminary micro results at discharge 02/18/22 16:40 Blood Culture - Preliminary Blood NO GROWTH 72 HOURS 02/18/22 15:55 Blood Culture - Preliminary Blood NO GROWTH 72 HOURS 02/18/22 16:00 Wound Culture - Preliminary Leg - Right Upper PFSH All Active Problems Cellulitis of right thigh (Acute) Abscess (Acute) inner right thigh, x4 days, worsening Cellulitis of left leg (Acute) Strain of hip flexor (Acute) Trochanteric bursitis, left hip (Acute) SARS-CoV-2 positive (Acute ~12/18/21) Discontinued smoking (Acute) Chronic back pain (Chronic) Dr. Thompson (PCP in [place]) prescribes chronic pain medications for this pt Essential hypertension (Chronic) Hx HTN, low recently .. STOPPED HCTZ 01/2019 .. Lowered BB, stay @ 25mg Hyperlipidemia (Chronic) History of right hip replacement (Chronic) Superficial dehiscence of wound (Acute) Mostly irritating, draining, but significant drainage @ distal section of surg site warranting wound evaluation. Stopped triple-antibiotic in case of aggrav; trial silvadene/gauze. Hypotension (Acute 09/2018) New issue .. decreasing BB . Stay at 25mg 02/10/19 Diarrhea (Acute 03/28/15) Trochanteric bursitis, right hip (Acute) Injected: 01/15/2019, 10/22/2021 History of total replacement of right hip (Acute ~04/2018) [facility] [place] Pain in hip region after total hip replacement (Acute) 09/01/19-repeat steroid injections. Ana Garvey MD [facility] [place] Status post total hip replacement, left (Acute 01/04/20) Treatment for avascular necrosis of the left hip. Lung nodule, multiple (Chronic) Stable per 08/2020 CT. 04/02/[address] [facility]: recommend 3-6 month f/u. 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 and/or transverse arch pathology. [ ] XR Left carpal tunnel syndrome (Acute) S/P release: 07/09/2021 Cubital tunnel syndrome on left (Acute) S/P ECTR: 07/09/2021 Elevated glucose (Acute) adding a1c Medical History Anesthesia Per pt. states in the past he has woken up violently, states at night he takes valium to shut his brain off and that works well for him. Pt. states it is related to PTSD from . Chronic back pain Degenerative joint disease of left hip HLD (hyperlipidemia) HTN (hypertension) PTSD (post-traumatic stress disorder) Surgical History back fusion (11/09/12) back surgery (11/05/05) back surgery (11/17/07) back surgery (11/08/09) Cholecystectomy (~1979) Trigger Finger release (10/11/16) RIGHT RING FINGER/DR. POWELL Family History Mother , AD at age 84. Diabetes Heart failure Dementia Father No problems noted. Sister Diabetes Sister , Hypothermia at age 43. No problems noted. Brother Mental disorder Brother No problems noted. Social History Smoking/Tobacco Use Status: Current every day Tobacco Type: pipe and cigars Per week: 14 Tobacco: How many years used: 40 Smoking risk assessment performed?: Yes Alcohol Intake: current Alcohol Intake frequency: 3 or more drinks per day Alcohol type: beer Drug use: Occasionally Substance use type: marijuana Adopted: No Foster care: No Pets and animals: Yes Pets and animals: cat(s), dog(s) and turtle(s) Current gender identity: male Duration: > 90 minutes/day Seatbelt use: always Helmet use: No Water heater temp set <120 deg: Yes Working smoke detector in home: Yes Fire extinguisher in home: Yes Carbon monox detector in home: Yes Firearms in home: Yes Firearms unloaded and locked: Yes Do you feel safe at home: Yes Do you feel safe in your relationship?: Yes Victim of physical abuse: No Victim of emotional abuse: No Victim of sexual abuse: No Additional Social history: at bedside.
[2022-02-21] MEDS: diazePAM 5 MG TAB PO (21:53)
[2022-02-21] MEDS: Gabapentin 300 MG CAP 600 MG PO (21:54)
[2022-02-21 22:58] VITALS: BP 162/93; PULSE 63; RESP 20; TEMP 37; O2SAT 97
[2022-02-22] MEDS: oxyCODONE 10 MG TAB PO ×2 (00:36→06:48)
[2022-02-22] MEDS: Normal Saline Flush 10 ML SYR IVP ×4 (04:24→10:27)
[2022-02-22] MEDS: PIPERACILLIN/TAZO 3.375 GM in Normal Saline 50 ML IVPB ×2 (04:24→10:25)
[2022-02-22] MEDS: Omeprazole 20 MG CAPCR PO (06:48)
[2022-02-22 07:07] LABS: Platelet Count 195 10^3/uL (130-400)
[2022-02-22 07:14] VITALS: BP 137/88; PULSE 62; RESP 19; TEMP 36.8; O2SAT 96
[2022-02-22] MEDS: Atorvastatin 40 MG TAB PO (08:00)
[2022-02-22] MEDS: Metoprolol CR 25 MG TABCR PO (08:00)
--- NOTE | 2022-02-22 09:18 | PDOC.CMDIS ---
- If Service Date Differs Date of service: 02/22/22 Time of Service: 09:18 LACE Index Scoring Tool - Questions: Length of Stay (in days): 4 - 6 Acuity (Admit via E.D.?): Yes E.D. Visits: 2 - Answers: Total Score: 9 Risk of Readmission: Low Risk Care Management Discharge Reason for Hospitalization: Soft tissue infection Discharge Plan: Subhash is discharged home via private vehicle with family. He will follow up with community providers and discharge plan of care as prescribed. Subhash will follow up with Surgical office on 02/27/22 at 1100, as scheduled and new RX's are transmitted to [facility]. Patient/Family Education Needs: Review discharge instructions, limitations, medications and plan to follow up with community providers. ask me three.
--- NOTE | 2022-02-22 12:58 | DSE_ITS ---
Date of service: 02/22/22 Time of Service: 12:59 DS: Diagnosis Discharge Diagnosis (1) Cellulitis of right thigh: Status: Acute (2) Abscess: Status: Acute (3) Discontinued smoking: Status: Acute (4) Essential hypertension: Status: Chronic (5) Hyperlipidemia: Status: Chronic (6) History of right hip replacement: Status: Chronic (7) Superficial dehiscence of wound: Status: Acute (8) Hypotension: Status: Acute (9) Diarrhea: Status: Acute (10) HLD (hyperlipidemia): (11) HTN (hypertension): Discharge Plan Disposition Patient Disposition: HOME Condition: Stable Discharge Details Reason For Visit: Soft Tissue Infection Admit Date/Time: 02/18/22 16:01 Admit Provider: Remberto Golden Attending Provider: Remberto Golden Primary Care Provider: Christine Dey [facility] Course Hospital Course: Mr. Olivares is a pleasant 61 year old male who was admitted with cellulitis of his right upper extremity secondary to a spider bite. He has been on Zosyn for 4 days. The cellulitis is almost resolved. Cx were non-diagnostic as he had been on antibiotics as an outpatient. He is eating and drinking. He has had normal soft BM's daily. He will be discharged home with daily dressing changes that he can do himself. Follow up appointment next week Home Meds and New Rx's Prescriptions: New docusate sodium [Colace] 100 mg Capsule 100 mg PO TID Qty: 30 0RF Metamucil Sugar-Free (aspart) 3.4 gram/5.8 gram Powder 1 pwd PO DAILY Qty: 660 0RF amoxicillin-pot clavulanate 875-125 mg tablet 1 tab PO Q12H Qty: 6 0RF Continued diazepam [Valium] 5 mg tablet 5 mg PO BID PRN Label Comments: Dr Gómez prescribes, pt takes at night to help him sleep oxycodone-acetaminophen 5-325 mg tablet 1 - 2 tab PO .5 times daily PRN gabapentin 800 mg tablet 800 mg PO TID PRN metoprolol succinate 25 mg tablet extended release 24 hr 25 mg PO DAILY Qty: 90 3RF Rx Instructions: 3rd reduction in dosing (2019) Multiple Vitamin-Minerals 1 EACH tablet 1 tab PO DAILY omeprazole 20 mg capsule,delayed release(DR/EC) 20 mg PO BID naloxone [Narcan] 4 mg/actuation spray,non-aerosol 4 mg CARLA Q2M PRNQty: 2 0RF Rx Instructions: spray 1 dose into ONE nostril; alternate nostrils w each dose until help arrives atorvastatin 40 mg Tablet 40 mg PO DAILY acetaminophen 500 mg tablet 500 mg PO Q6H PRN (Reason: pain) Qty: 60 2RF ibuprofen 600 mg tablet 600 mg PO TID PRN (Reason: pain) Qty: 60 0RF Discontinued cephalexin 500 mg capsule 500 mg PO QID Qty: 28 0RF sulfamethoxazole-trimethoprim [Bactrim DS] 800-160 mg tablet 1 tab PO BID Qty: 20 0RF Discharge Instructions Additional Instructions: Keep an ice bag on the incision. 20 minutes on and 20 minutes off. Ice keeps the swelling down and swelling causes pain. Make sure you wrap the ice pack in a towel and don't apply directly to the skin. -No driving if you are taking pain medications. -If you have madai or sutures in place, they will be removed at your clinic appointment in 7-10 days. -Do Not remove any steri tapes (white tapes) that cover the incision. If you have steri-tapes on your incision, do not use antibacterial ointment. -Follow-up with Dr. Mock in 1 week. -soft diet: No beef/pork raw vegetables x1 -week. Cooked vegetables are fine -no straining to move bowels -pain meds are very constipating: if you do not move your bowels daily take a dose of OTC milk of magnesia -It is ok to shower. No bathe, soaking, swimming or hot tubs -Keep wound clean and dry. Wash incision with soap and water daily. Pat dry, don't rub. -If you do not have steri-tapes on your incision, than keep the wound covered with a gauze and antibacterial ointment. -Protein supplements daily. You may find that your appetite is smaller. Eat 3-6 small meals throughout the day. It is important to drink lots of water after surgery, 6-10 glasses a day. -If you were given an incentive spirometry (breathing implementation specialist?), continue to do this 10x/hour while awake. -We do want you up walking, at least 5-6 times per day. This is very important to prevent pneumonia and blood clots. You can climb stairs, take them slowly. -No lifting over 5 pounds. This is very important to avoid developing a hernia in your incision. -You may find that you are very tired after surgery- this is normal. -please do not smoke for a minimum of 72 hours after surgery. Referrals: Remberto Golden MD [ [facility] STAFF PHYSICIAN] - 02/27/22 11:00 am Activity:: Activity as Tolerated Equipment/Supplies:: hydrogel and wilman bandaid Diet:: As Tolerated Discharge Orders Discharge Orders: Discharge Order (Routine); Ordered 02/22/22 Ordered By: Patrizia Rodriguez DS: Summary Time Spent with Patient providing and/or coordinating discharge services: Less than 30 minutes Status at Discharge Functional status at discharge: independent ambulation Overall status at discharge: patient is back to baseline Mental Status: mental status grossly normal Speech and Movement: speech and movement normal Mood: congruent mood Affect: normal affect Exam Const General: cooperative, comfortable and no acute distress Orientation: alert and oriented x3 HENMT Head: normocephalic and atraumatic Resp Effort & Inspection: normal respiratory effort Auscultation: clear to auscultation bilaterally Cardio Rate: regular rate Rhythm: regular rhythm Extrem Other: right lower extremity- cellultis almost gone. serous discharge on dressing Psych Mental Status: mental status grossly normal Speech and Movement: speech and movement normal Mood: congruent mood Affect: normal affect DS: Data Vitals/I&O Vitals and I&O: Vital Signs Temperature 98.2 F 02/22/22 07:14 Temperature Source Tympanic 02/22/22 07:14 Pulse 62 02/22/22 07:14 Pulse Rhythm Regular 02/22/22 07:30 Respiratory Rate 19 02/22/22 07:14 Respiratory Effort Non-Labored 02/22/22 07:30 Respiratory Depth Normal 02/22/22 07:30 Respiratory Pattern Normal 02/22/22 07:30 Blood Pressure 137/88 02/22/22 07:14 Blood Pressure Position Sitting 02/18/22 14:41 Pulse Oximetry 96 02/22/22 07:14 Oxygen Delivery Method Room Air 02/22/22 07:14 Oxygen Flow Rate 0 02/22/22 07:14 Pain Level 0 02/22/22 07:14 Comment 02/21/22 22:58 Intake & Output 02/21/22 02/22/22 02/22/22 23:59 11:59 23:59 Intake Total 1019.5 / 2020.0 100 / 100 Output Total 350 / 1300 Balance 669.5 / 720.0 100 / 100 Intake: IV 599.5 / 700.0 100 / 100 Oral 420 / 1320 Output: Urine 350 / 1300 Other: Urine Color Yellow Urine Appearance Clear Urine Odor Normal Comment Void x1 in the urinal. pt said he voided in toliet Stool Size Moderate Stool Characteristics Soft Formed Voiding Methods Toilet Toilet Data Completed and Pending Labs on day of discharge: Labs from last 24 hours 02/22/22 06:40 Plt Count 195 Preliminary micro results at discharge 02/18/22 16:00 Wound Culture - Preliminary Leg - Right Upper 02/18/22 16:40 Blood Culture - Preliminary Blood NO GROWTH 72 HOURS 02/18/22 15:55 Blood Culture - Preliminary Blood NO GROWTH 72 HOURS PFSH All Active Problems Cellulitis of right thigh (Acute) Abscess (Acute) inner right thigh, x4 days, worsening Cellulitis of left leg (Acute) Strain of hip flexor (Acute) Trochanteric bursitis, left hip (Acute) SARS-CoV-2 positive (Acute ~12/18/21) Discontinued smoking (Acute) Chronic back pain (Chronic) Dr. Thompson (PCP in [place]) prescribes chronic pain medications for this pt Essential hypertension (Chronic) Hx HTN, low recently .. STOPPED HCTZ 01/2019 .. Lowered BB, stay @ 25mg Hyperlipidemia (Chronic) History of right hip replacement (Chronic) Superficial dehiscence of wound (Acute) Mostly irritating, draining, but significant drainage @ distal section of surg site warranting wound evaluation. Stopped triple-antibiotic in case of aggrav; trial silvadene/gauze. Hypotension (Acute 09/2018) New issue .. decreasing BB . Stay at 25mg 02/10/19 Diarrhea (Acute 03/28/15) Trochanteric bursitis, right hip (Acute) Injected: 01/15/2019, 10/22/2021 History of total replacement of right hip (Acute ~04/2018) [facility] [place] in hip region after total hip replacement (Acute) 09/01/19-repeat steroid injections. Ana Garvey MD [facility] Status post total hip replacement, left (Acute 01/04/20) Treatment for avascular necrosis of the left hip. Lung nodule, multiple (Chronic) Stable per 08/2020 CT. 04/02/[address] [facility] CT: recommend 3-6 month f/u. 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 and/or transverse arch pathology. [ ] XR Left carpal tunnel syndrome (Acute) S/P release: 07/09/2021 Cubital tunnel syndrome on left (Acute) S/P ECTR: 07/09/2021 Elevated glucose (Acute) adding a1c Medical History Anesthesia Per pt. states in the past he has woken up violently, states at night he takes valium to shut his brain off and that works well for him. Pt. states it is related to PTSD from . Chronic back pain Degenerative joint disease of left hip HLD (hyperlipidemia) HTN (hypertension) PTSD (post-traumatic stress disorder) Surgical History back fusion (11/09/12) back surgery (11/05/05) back surgery (11/17/07) back surgery (11/08/09) Cholecystectomy (~1979) Trigger Finger release (10/11/16) RIGHT RING FINGER/DR. POWELL Family History Mother , AD at age 84. Diabetes Heart failure Dementia Father No problems noted. Sister Diabetes Sister , Hypothermia at age 43. No problems noted. Brother Mental disorder Brother No problems noted. Social History Smoking/Tobacco Use Status: Current every day Tobacco Type: pipe and cigars Per week: 14 Tobacco: How many years used: 40 Smoking risk assessment performed?: Yes Alcohol Intake: current Alcohol Intake frequency: 3 or more drinks per day Alcohol type: beer Drug use: Occasionally Substance use type: marijuana Adopted: No Foster care: No Pets and animals: Yes Pets and animals: cat(s), dog(s) and turtle(s) Current gender identity: male Duration: > 90 minutes/day Seatbelt use: always Helmet use: No Water heater temp set <120 deg: Yes Working smoke detector in home: Yes Fire extinguisher in home: Yes Carbon monox detector in home: Yes Firearms in home: Yes Firearms unloaded and locked: Yes Do you feel safe at home: Yes Do you feel safe in your relationship?: Yes Victim of physical abuse: No Victim of emotional abuse: No Victim of sexual abuse: No Additional Social history: at bedside.
== END 2022-02-22 13:51 | disposition home or self-care (01) | DRG 603 ==
LOC: ER 16:30 → MS 17:06
PROVIDERS: Surgery; Admitting Provider Surgery; Emergency Provider Emergency Medicine; PCP Student in an Organized Health Care Education/Training Program; Visit Provider Surgery
DX: L03.115 Cellulitis of right lower limb (principal); G89.29 Other chronic pain; M54.9 Dorsalgia, unspecified; L02.415 Cutaneous abscess of right lower limb; I95.9 Hypotension, unspecified; E78.5 Hyperlipidemia, unspecified; R91.8 Other nonspecific abnormal finding of lung field; I10 Essential (primary) hypertension; Z96.643 Presence of artificial hip joint, bilateral; Z86.16 Personal history of COVID-19; F43.10 Post-traumatic stress disorder, unspecified; Z87.891 Personal history of nicotine dependence
CPT/HCPCS: 10061; 36415; 80053; 85652; 87040; 87635; 96361; 96365; 96366; 96368; 96375; 99223; 99232; 99238; 99285; J1650; 80202; 83605; 83735; 84484; 85025; 85049; 86140; 87070; 87075; 87205; J2270; J2543

== ENCOUNTER → 2022-02-27 10:55 | Outpatient (BNVA) | payer MEDICARE, SELFPAY | PROVIDERS: PCP Student in an Organized Health Care Education/Training Program; Referring Provider Student in an Organized Health Care Education/Training Program; Visit Provider Surgery | DX: L03.115 Cellulitis of right lower limb (principal) | CPT/HCPCS: 99213 ==

== ENCOUNTER → 2022-05-21 08:46 | Outpatient (BNVA) | payer MEDICARE, SELFPAY | PROVIDERS: PCP Student in an Organized Health Care Education/Training Program; Referring Provider Student in an Organized Health Care Education/Training Program; Visit Provider Surgery | DX: Z12.11 Encounter for screening for malignant neoplasm of colon (principal) ==

== ENCOUNTER 2022-06-07 07:36 | Day surgery (SDC) | payer MEDICARE, SELFPAY ==
--- NOTE | 2022-06-07 07:04 | W.COLOREPORT ---
Date of service: 06/07/22 Time of Service: 10:35 Colonoscopy Report Date of procedure: 06/07/22 Pre-op diagnosis general: colon cancer screening Post-op diagnosis procedure note: other (multiple polyps) Procedure: Colonoscopy with polypectomy Surgeon: Patrizia Rodriguez Anesthesia Type: General:No Airway Estimated blood loss (mL): 5 Pathology: other (descending polyps x5, sigmoid polyp and rectal polyp x2) Complications: None Disposition: same day Indications: The patient? is a pleasant? 62-year-old male who is here to discuss another screening colonoscopy. ? His last colonoscopy was in 2013 and was normal.? His prep was marginal and he was asked to return in 5 years.? He denies any changes in bowel habits, melena, hematochezia, unintentional weight loss or family history of colon cancer.? The procedure and risks were discussed.? The prep was reviewed in detail.? Risks, benefits and complications have been reviewed. Complications include but are not limited to bleeding, pain, perforation, missed small lesion/polyp, sore throat, aspiration and adverse reaction to the medications. Questions were entertained and answered to their satisfaction and they wished to proceed. No guarantees were given or implied. Prep: Miralax/Dulcolax Procedure Start Time: 10:35 Procedure End Time: 11:12 Retraction Time: 27 minutes Findings: multiple small polyps Procedure Description: After informed consent was obtained the patient was taken to the procedure room and placed in a left decubitous position. Monitors were applied and a time out was done. The patients name, date of , procedure, allergies to medications and metal in their body was reviewed. The patient was then sedated. Once sedated and comfortable a rectal exam was done. External exam was normal. Internal exam revealed a normal sphincter tone and no palpable masses. The prostate felt smooth. The scope was then introduced and retro-flexed. No internal hemorrhoids, polyps or masses were identified on retro-flexion. The scope was then advanced to the cecum without difficulty. The ileocecal vlave and appendiceal orifice were identified. The prep was adequate. The scope was then slowly retracted over 27 minutes back into the rectum. Polyps were removed with cold forceps in the descending colon x5, sigmoid colon x1 and rectum x2. There was no diverticulosis noted. The scope was removed and the patient was woken up and taken back to Same day surgery in stable condition. The patient tolerated the procedure well and there were no immediate complications.
--- NOTE | 2022-06-07 07:05 | W.PM.DSUDISC ---
Date of service: 06/07/22 Time of Service: 10:35 Discharge Plan Disposition Patient Disposition: HOME Condition: Good Discharge Details Reason For Visit: colon cancer screening Attending Provider: Patrizia Rodriguez Primary Care Provider: Christine Dey Home Meds and New Rx's Prescriptions: Continued diazepam [Valium] 5 mg tablet 5 mg PO BID PRN Label Comments: Dr Gómez prescribes, pt takes at night to help him sleep oxycodone-acetaminophen 5-325 mg tablet 1 - 2 tab PO .5 times daily PRN gabapentin 800 mg tablet 800 mg PO TID PRN atorvastatin 40 mg tablet 40 mg PO DAILY Qty: 90 1RF Multiple Vitamin-Minerals Tablet 1 tab PO DAILY Qty: 90 1RF metoprolol succinate 25 mg tablet extended release 24 hr 25 mg PO DAILY Qty: 90 3RF Rx Instructions: 3rd reduction in dosing (2019) omeprazole 20 mg capsule,delayed release(DR/EC) 20 mg PO BID naloxone [Narcan] 4 mg/actuation spray,non-aerosol 4 mg CARLA Q2M PRNQty: 2 0RF Rx Instructions: spray 1 dose into ONE nostril; alternate nostrils w each dose until help arrives acetaminophen 500 mg tablet 500 mg PO Q6H PRN (Reason: pain) Qty: 60 2RF celecoxib 200 mg capsule 1 cap PO BID Discontinued bisacodyl [Dulcolax (bisacodyl)] 5 mg tablet,delayed release (DR/EC) 5 mg PO ONCE Qty: 4 0RF Rx Instructions: Take according to provider's instructions for colonoscopy prep. polyethylene glycol 3350 17 gram/dose powder 17 g PO ONCE Qty: 238 0RF Rx Instructions: To be taken as directed by prescriber's office for colonoscopy prep. Discharge Instructions Additional Instructions: Findings: multiple small polyps Follow up: most liekly 5 years Please call if you develop: fevers >101.5 Nausea or Vomiting Abdominal pain that is not transient Rectal bleeding that is more then a tbsp A hard abdomen and inability to pass gas DAY SURGERY UNIT POST ENDOSCOPY INSTRUCTIONS Instructions for everyone who is given Anesthesia: For your safety, please do the following for the next 24 Hours: a. Do not drive or operate dangerous equipment b. Do not drink alcohol beverages or use any recreational drugs for the first 24 hours or while taking pain medications. The medications in your body may have a reaction that can be dangerous. c. Do not make any important decisions or sign any important papers 1. Generally there are no restrictions on your activity after a day or so has gone by, but you may feel a bit fatigued for a few days. 2. After you arrive home you may have a light meal and return to a normal diet as you can tolerate it without feeling sick to your stomach. 3. After surgery, you may feel pain or discomfort. This should be only transient, but if it persists please contact your doctor. 4. If there are any questions regarding the findings of your procedure, please feel free to contact your doctor. 6. If you are unable to contact your doctor with a problem, contact the hospital at [phone]. 7. Continue all your regular medications unless directed otherwise. I understand the above instructions and have no questions. Signature of Patient or Responsible Adult Escort Date/Time Name of Responsible Adult Escort Signature of Nurse Date/Time Activity:: Activity as Tolerated Equipment/Supplies:: No Equipment Needed Diet:: As Tolerated
[2022-06-07 08:42] VITALS: BP 143/98; PULSE 74; RESP 16; TEMP 36.8; O2SAT 98
[2022-06-07] MEDS: Lactated Ringers 1,000 ML 80 ML IV (08:56)
--- NOTE | 2022-06-07 09:37 | W.ANESPRE ---
General Info Date of Service Date Performed: 06/07/22 Height: 5 ft 6 in Weight: 94.57 kg Body Mass Index (BMI): 33.6 Surgical Procedure: Operation Date: 06/07/22 09:20 Proposed Procedure Side Surgeon srikanth Rodriguez MD Meds Allergies and Home Medications Allergies Allergy/AdvReac Type Severity Reaction Status Date / Time No Known Allergies Allergy Verified 06/05/22 14:36 Home Medication Medication Instructions Recorded diazepam 5 mg tablet (Valium) 5 mg PO BID PRN 08/26/18 gabapentin 800 mg tablet 800 mg PO TID PRN 11/15/19 naloxone 4 mg/actuation nasal 4 mg intranasal Q2M PRN #2 ea 01/05/20 spray (Narcan) omeprazole 20 mg capsule,delayed 20 mg PO BID 02/19/21 release acetaminophen 500 mg tablet 500 mg PO Q6H PRN pain #60 tabs 07/09/21 oxycodone-acetaminophen 5 mg-325 1 - 2 tab PO .5 times daily PRN 11/09/21 mg tablet atorvastatin 40 mg tablet 40 mg PO DAILY #90 tabs 03/06/22 multivitamin with minerals 1 tab PO DAILY #90 tabs 03/06/22 (Multiple Vitamin-Minerals tablet) metoprolol succinate 25 mg 25 mg PO DAILY #90 tabs 05/09/22 tablet,extended release 24 hr bisacodyl 5 mg tablet,delayed 5 mg PO ONCE #4 tabs 05/21/22 release (Dulcolax (bisacodyl)) polyethylene glycol 3350 17 17 g PO ONCE #238 grams 05/21/22 gram/dose oral powder celecoxib 200 mg capsule 1 cap PO BID 06/05/22 Current Visit Medications: Current Medications Generic Name Dose Route Start Last Admin Trade Name Freq PRN Reason Stop Dose Admin Hyoscyamine Sulfate 0.125 mg 06/07/22 07:06 Hyoscyamine 0.125 Mg Sl/Oral/Chew SL DIRECTED PRN Ringer's Solution 1,000 mls @ 80 mls/hr 06/07/22 06:00 06/07/22 08:56 IV 07/06/22 23:59 80 mls/hr INFUSION ANITA Administration IV Miscellaneous Supplies 1 each 06/07/22 06:00 Iv Access IV 07/06/22 23:59 DIRECTED ANITA Ondansetron HCl 4 mg 06/07/22 07:06 Ondansetron 4 Mg/2 Ml Vial IVP Q4H PRN PRN Nausea / Vomiting Sodium Chloride 0 ml 06/07/22 06:00 Normal Saline Flush 10 Ml Syr IV 07/06/22 23:59 PRN PRN Sodium Chloride 0 ml 06/07/22 06:00 Normal Saline 10 Ml Vial IJ 07/06/22 23:59 DIRECTED PRN Sterile Water 0 ml 06/07/22 06:00 Water,Injection,Sterile 10 Ml Vial IJ 07/06/22 23:59 DIRECTED PRN PFSH Active Problems Active Problems: Problem Status Onset Code Screening for colon cancer Z12.11 Cellulitis of right thigh L03.115 Strain of hip flexor S76.019A Trochanteric bursitis, left hip M70.62 SARS-CoV-2 positive ~12/18/21 U07.1 Discontinued smoking Z87.891 Chronic back pain M54.9, G89.29 Hip pain, right 09/24/17 M25.551 Superficial dehiscence of wound T81.30XA Trochanteric bursitis, right hip M70.61 History of total replacement of right hip ~04/2018 Z96.641 Pain in hip region after total hip replacement T84.84XA, Z96.649 Status post total hip replacement, left 01/04/20 Z96.642 Lung nodule, multiple R91.8 Pain of left hip M25.552 Numbness of left hand R20.0 Left foot pain M79.672 Left carpal tunnel syndrome G56.02 Cubital tunnel syndrome on left G56.22 Elevated glucose R73.09 Medical History Medical History Anesthesia Per pt. states in the past he has woken up violently, states at night he takes valium to shut his brain off and that works well for him. Pt. states it is related to PTSD from . Chronic back pain Degenerative joint disease of left hip Diarrhea (03/28/15) Essential hypertension Hx HTN, low recently .. STOPPED HCTZ 01/2019 .. Lowered BB, stay @ 25mg HLD (hyperlipidemia) HTN (hypertension) Hyperlipidemia Hypotension (09/2018) New issue .. decreasing BB . Stay at 25mg 02/10/19 PTSD (post-traumatic stress disorder) Medical History Comments:: Per pt. states in the past he was been violent when he wakes up from anesthesia Surgical History Surgical History back fusion (11/09/12) back surgery (11/05/05) back surgery (11/17/07) back surgery (11/08/09) Cholecystectomy (~1979) History of right hip replacement Trigger Finger release (10/11/16) RIGHT RING FINGER/DR. POWELL Tobacco Smoking/Tobacco Use Status: Current every day Tobacco Type: pipe and cigars Per week: 14 Alcohol Alcohol Intake: current Alcohol type: beer Substance Use Substance use: Occasionally Substance use type: marijuana Details: Cannabis a couple x's yr. Vital Signs and Lab Results Vital Signs Most Recent Vital Signs in EMR: Most Recent Vital Signs Temp Pulse Resp BP Pulse Ox 36.8 C 74 16 143/98 H 98 06/07/22 08:42 06/07/22 08:42 06/07/22 08:42 06/07/22 08:42 06/07/22 08:42 Lab Results Blood Type / Crossmatch: No Data to Display Complete Blood Count: No Data to Display Complete Metabolic Panel: No Data to Display Liver Function Panel: No Data to Display Coagulation Panel: No Data to Display Cardiac Panel: No Data to Display Arterial Blood Gas: No Data to Display Venous Blood Gas: No Data to Display Pancreas Panel: No Data to Display Thyroid Panel: No Data to Display Infectious Disease: No Data to Display Blood Cultures: No Data to Display Toxicology Panel: No Data to Display Anesthesia Assessment and Plan Anesthesia History Personal History: Other Family History: No Family History of Anesthesia Complications Exercise Tolerance Exercise Tolerance: Metabolic Equivalents>4 Pertinent Negatives Pertinent Negatives: No Symptoms of GERD Cardiac & Pulmonary Exam Cardiac Exam: Normal S1/S2 Heart Sounds Pulmonary Exam: Clear Bilateral Breath Sounds Implantable Cardiac Device Does patient have a Pacemaker or an ICD?: No Airway Exam Known Difficult Airway: No Mallampati Class: 2 Mouth Opening: Normal (> 3cm) Thyromental Distance: Less than 3 cm Neck Range of Motion: Full ROM Neck Circumference: Normal Teeth Condition: Generalized Poor Dentition ASA Classification ASA Score: ASA 2 Emergency Case?: No NPO Status NPO Status: NPO Clears >2 hours, Solids >8 hours Anesthesia Plan Resuscitation Status: Full Code Anesthesia Technique: General Anesthesia Airway Planned: Natural Airway Monitors Used: Standard Monitors
[2022-06-07 09:39] VITALS: BMI 33.6
--- NOTE | 2022-06-07 10:54 | BOWEL_PTH ---
PATIENT: Subhash Olivares LOC: [facility] U#:[id number] AGE/SX: 62/M ROOM: RE06/07/[address]: Patrizia Rodriguez MD : 1960 BED: DIS: 06/07/2022 SPEC #: [id number] RECD: 06/07/22 12:43 STATUS: YURIDIA REQ #: [id number] NASREEN: 06/07/22 10:[address]: Patrizia Rodriguez DEPT: Surgical Specimen RECD BY: Scarlett Peterson ENTERED: 06/07/22 12:45 SP TYPE: Bowel OTHR DR: Christine Dey DO Tissues: 1 - BIOPSY BOWEL 2 - BIOPSY BOWEL 3 - BIOPSY BOWEL Procedures: GROSS AND MICRO LEVEL 4 Comments: [id number]
[2022-06-07 11:23] VITALS: BP 93/62; PULSE 61; RESP 18; TEMP 36.4; O2SAT 90
[2022-06-07 11:26] VITALS: BP 106/76; PULSE 59; RESP 18; TEMP 36.5; O2SAT 94
[2022-06-07 11:53] VITALS: BP 133/92; PULSE 56; RESP 18; TEMP 36.5; O2SAT 98
--- NOTE | 2022-06-07 12:24 | W.ANESPOSTOP ---
Postoperative Evaluation Date, Time and Location Date Performed: 06/07/22 Time Performed: 11:53 Patient Location: Day Surgery Unit Vital Signs Most Recent Imported Vital Signs: Most Recent Vital Signs Temp Pulse Resp BP Pulse Ox 36.5 C 56 L 18 133/92 H 98 06/07/22 11:53 06/07/22 11:53 06/07/22 11:53 06/07/22 11:53 06/07/22 11:53 Pain Score Most Recent Pain Score: Most Recent Pain Score Pain Level 0 06/07/22 11:53 Assessment Mental Status: Awake (Alert & Oriented to Patient Baseline) Airway and Respiratory Function: Patent airway with normal (patient baseline) respiratory exam Cardiovascular Function: Hemodynamically Stable Hydration Status: Adequately Hydrated Nausea & Vomiting: No Nausea or Vomiting Pain: Pt. Denies Any Pain Peripheral Nerve Block: Patient did not receive a nerve block
== END 2022-06-07 12:15 | disposition home or self-care (01) ==
PROVIDERS: PCP Student in an Organized Health Care Education/Training Program; Visit Provider Surgery
PROC: 0DJD8ZZ Inspection of Lower Intestinal Tract, Via Natural or Artificial Opening Endoscopic (ICD-10-PCS; CPT 45378; principal; 2022-06-07 09:15)
DX: Z12.11 Encounter for screening for malignant neoplasm of colon (principal); K63.5 Polyp of colon; K62.1 Rectal polyp
CPT/HCPCS: 45380; 88305

== ENCOUNTER 2022-07-25 03:54 | Outpatient (CLI) | payer MEDICARE, SELFPAY ==
[2022-07-25 09:57] LABS: Abs Immature Grans 0.01 10^3/uL (0.0-0.06); Absolute Basophil Count 0.05 10^3/uL (0.0-0.2); Absolute Eosinophil Count 0.15 10^3/uL (0.0-0.7); Absolute Lymphocyte Count 2.52 10^3/uL (1.2-3.4); Absolute Monocyte Count 0.58 10^3/uL (0.1-0.8); Absolute Neutrophil Count 4.01 10^3/uL (1.2-6.7); Basophils % 0.7; HCT 42.2 % (40.0-50.0); HGB 14.5 g/dL (13.5-17.5); Immature Grans % 0.1; Lymphocytes % 34.4; MCH 31.1 pg (27.0-33.0); MCHC 34.4 % (32.0-36.0); MCV 91 fL (80-95); MPV 8.7 fL (8.0-11.0); Monocytes % 7.9; Neutrophils % 54.9; Platelet Count 188 10^3/uL (130-400); RBC 4.66 10^6/uL (4.36-5.78); RDW 12.6 % (11.8-14.1); RDW-SD 41.6 fL; WBC 7.32 10^3/uL (4.4-10.8)
[2022-07-25 11:01] LABS: ALT 28 U/L (16-63); AST 25 U/L (15-37); Albumin 4.2 g/dL (3.4-5.0); Alkaline Phosphatase 56 U/L (46-116); Anion Gap 10.2 mmol/L (3-11); BUN 17 mg/dL (7-18); Bilirubin, Total 0.4 mg/dL (0.2-1.0); CO2 26.8 mmol/L (21.0-32.0); CREATININE 1.1 mg/dL (0.70-1.30); Calcium 8.8 mg/dL (8.5-10.1); Calculated LDL 80 mg/dL (<100); Chloride 102 mmol/L (98-107); Cholesterol 143 mg/dL (<200); Estimated GFR 76.85 (mL/min/1.73m2); Glucose 103 mg/dL (74-106); HDL Cholesterol 46 mg/dL (40-60); Potassium 4.1 mmol/L (3.5-5.1); Sodium 139 mmol/L (136-145); TSH (W/Ref FT4) 2.09 uIU/mL (0.36-3.74); Total Protein 7.6 g/dL (6.4-8.2); Triglyceride 88 mg/dL (<150)
== END 2022-07-25 03:55 | disposition home or self-care (01) ==
LOC: LBO 03:54
PROVIDERS: Absent Provider Student in an Organized Health Care Education/Training Program; PCP Student in an Organized Health Care Education/Training Program; Visit Provider Student in an Organized Health Care Education/Training Program
DX: I10 Essential (primary) hypertension (principal); F32.89 Other specified depressive episodes; M54.59 Other low back pain; G89.29 Other chronic pain
CPT/HCPCS: 36415; 80053; 80061; 84443; 85025

== ENCOUNTER → 2022-08-02 11:13 | Outpatient (BNVA) | payer MEDICARE, SELFPAY | PROVIDERS: PCP Student in an Organized Health Care Education/Training Program; Referring Provider Student in an Organized Health Care Education/Training Program; Visit Provider Physician Assistant | DX: M70.61 Trochanteric bursitis, right hip (principal); Z96.641 Presence of right artificial hip joint | CPT/HCPCS: 99213 ==

== ENCOUNTER → 2022-08-20 11:15 | Outpatient (BNVA) | payer MEDICARE, SELFPAY | PROVIDERS: PCP Student in an Organized Health Care Education/Training Program; Referring Provider Student in an Organized Health Care Education/Training Program; Visit Provider Student in an Organized Health Care Education/Training Program | DX: M70.61 Trochanteric bursitis, right hip (principal); M76.31 Iliotibial band syndrome, right leg | CPT/HCPCS: 99214 ==

== ENCOUNTER 2022-08-30 12:25 | Day surgery (SDC) | payer MEDICARE, SELFPAY ==
[2022-08-30 12:30] VITALS: BP 133/96; PULSE 67; RESP 18; TEMP 36.2; O2SAT 99
[2022-08-30] MEDS: Lactated Ringers 1,000 ML 30 ML IV (13:15)
--- NOTE | 2022-08-30 14:47 | ANES.PREOP_ITS ---
General Info Date of Service Date Performed: 08/30/22 Height: 5 ft 6.5 in Weight: 94.7 kg Body Mass Index (BMI): 33.2 Surgical Procedure: Operation Date: 08/30/22 14:35 Proposed Procedure Side Surgeon p Endoscopic Iliotibial Band Release w/ Trochanteric Bursectomy Right Wally Case MD Meds Allergies and Home Medications Allergies Allergy/AdvReac Type Severity Reaction Status Date / Time No Known Allergies Allergy Verified 08/30/22 13:03 Home Medication Medication Instructions Recorded diazepam 5 mg tablet (Valium) 5 mg PO BID PRN 08/26/18 gabapentin 800 mg tablet 800 mg PO TID PRN 11/15/19 naloxone 4 mg/actuation nasal 4 mg intranasal Q2M PRN #2 ea 01/05/20 spray (Narcan) omeprazole 20 mg capsule,delayed 20 mg PO BID 02/19/21 release atorvastatin 40 mg tablet 40 mg PO DAILY #90 tabs 03/06/22 multivitamin with minerals 1 tab PO DAILY #90 tabs 03/06/22 (Multiple Vitamin-Minerals tablet) metoprolol succinate 25 mg 25 mg PO DAILY #90 tabs 05/09/22 tablet,extended release 24 hr celecoxib 200 mg capsule 1 cap PO BID 06/05/22 oxycodone-acetaminophen 5 mg-325 1 - 2 tab PO TID 07/31/22 mg tablet Current Visit Medications: Current Medications Generic Name Dose Route Start Last Admin Trade Name Freq PRN Reason Stop Dose Admin Ringer's Solution 1,000 mls @ 30 mls/hr 08/30/22 06:00 08/30/22 13:15 IV 09/28/22 23:59 30 mls/hr INFUSION ANITA Administration Cefazolin Sodium/Dextrose 2 gm in 50 mls @ 100 mls/hr 08/30/22 06:00 Ancef Duplex IVPB 08/30/22 16:00 PREOP ANITA IV Miscellaneous Supplies 1 each 08/30/22 06:00 Iv Access IV 09/28/22 23:59 DIRECTED ANITA Sodium Chloride 0 ml 08/30/22 06:00 Normal Saline Flush 10 Ml Syr IV 09/28/22 23:59 PRN PRN Sodium Chloride 0 ml 08/30/22 06:00 Normal Saline 10 Ml Vial IJ 09/28/22 23:59 DIRECTED PRN Sterile Water 0 ml 08/30/22 06:00 Water,Injection,Sterile 10 Ml Vial IJ 09/28/22 23:59 DIRECTED PRN PFSH Active Problems Active Problems: Problem Status Onset Code Iliotibial band syndrome of right side M76.31 Stressful life events affecting family and household Z63.79 Essential hypertension I10 Screening for colon cancer Z12.11 Cellulitis of right thigh L03.115 Strain of hip flexor S76.019A Trochanteric bursitis, left hip M70.62 SARS-CoV-2 positive ~12/18/21 U07.1 Discontinued smoking Z87.891 Chronic back pain M54.9, G89.29 Hip pain, right 09/24/17 M25.551 Trochanteric bursitis, right hip M70.61 Status post total hip replacement, left 01/04/20 Z96.642 Lung nodule, multiple R91.8 Numbness of left hand R20.0 Left foot pain M79.672 Left carpal tunnel syndrome G56.02 Cubital tunnel syndrome on left G56.22 Elevated glucose R73.09 Medical History Medical History Anesthesia Per pt. states in the past he has woken up violently, states at night he takes valium to shut his brain off and that works well for him. Pt. states it is related to PTSD from . Degenerative joint disease of left hip Diarrhea (03/28/15) HLD (hyperlipidemia) Hyperlipidemia Hypotension (09/2018) New issue .. decreasing BB . Stay at 25mg 02/10/19 Pain in hip region after total hip replacement 09/01/19-repeat steroid injections. Ana Garvey [place] [facility] [place] (post-traumatic stress disorder) Superficial dehiscence of wound Mostly irritating, draining, but significant drainage @ distal section of surg site warranting wound evaluation. Stopped triple-antibiotic in case of aggrav; trial silvadene/gauze. Medical History Comments:: Per pt. states in the past he was been violent when he wakes up from anesthesia Surgical History Surgical History back fusion (11/09/12) back surgery (11/05/05) back surgery (11/17/07) back surgery (11/08/09) Cholecystectomy (~1979) History of right hip replacement History of total replacement of right hip (~04/2018) [facility] [place]igger Finger release (10/11/16) RIGHT RING FINGER/DR. POWELL Tobacco Smoking/Tobacco Use Status: Current every day Tobacco Type: pipe and cigars Per week: 14 Alcohol Alcohol Intake: current Alcohol intake frequency: a few times a month Alcohol type: beer Substance Use Substance use: Occasionally Substance use type: marijuana Vital Signs and Lab Results Vital Signs Most Recent Vital Signs in EMR: Most Recent Vital Signs Temp Pulse Resp BP Pulse Ox 36.2 C L 67 18 133/96 H 99 08/30/22 12:30 08/30/22 12:30 08/30/22 12:30 08/30/22 12:30 08/30/22 12:30 Lab Results Blood Type / Crossmatch: No Data to Display Complete Blood Count: No Data to Display Complete Metabolic Panel: No Data to Display Liver Function Panel: 2 No Data to Display Coagulation Panel: No Data to Display Cardiac Panel: No Data to Display Arterial Blood Gas: No Data to Display Venous Blood Gas: No Data to Display Pancreas Panel: No Data to Display Thyroid Panel: No Data to Display Infectious Disease: No Data to Display Blood Cultures: No Data to Display Toxicology Panel: No Data to Display Anesthesia Assessment and Plan Anesthesia History Personal History: No History of Anesthesia Complications and Other Family History: No Family History of Anesthesia Complications Exercise Tolerance Exercise Tolerance: Metabolic Equivalents>4 Pertinent Negatives Pertinent Negatives: No Symptoms of GERD, No Major Cardiovascular Symptoms or Complaints, No Major Pulmonary Symptoms or Complaints and No History of CVA/TIA Cardiac & Pulmonary Exam Cardiac Exam: Normal S1/S2 Heart Sounds Pulmonary Exam: Clear Bilateral Breath Sounds Implantable Cardiac Device Does patient have a Pacemaker or an ICD?: No Airway Exam Known Difficult Airway: No Mallampati Class: 3 Mouth Opening: Narrow (< 3cm) Thyromental Distance: Less than 3 cm Neck Range of Motion: Full ROM Neck Circumference: Normal Teeth Condition: Generalized Poor Dentition (Denies any loose teeth. ) ASA Classification ASA Score: ASA 2 Emergency Case?: No NPO Status NPO Status: NPO Clears >2 hours, Solids >8 hours Anesthesia Plan Resuscitation Status: Full Code Anesthesia Technique: General Anesthesia Airway Planned: Endotracheal Tube Monitors Used: Standard Monitors
[2022-08-30 14:48] VITALS: BMI 33.2
--- NOTE | 2022-08-30 15:00 | DI.RAD_ITS ---
Exam(s) XR HIP RT IN OR EXAM: XR HIP RT IN OR CLINICAL HISTORY: TROCHANTERIC BURSITIS, IT band syndrome of right TECHNIQUE: 2D and realtime digital imaging was performed. CONTRAST MATERIAL: Refer to procedure report. COMPARISON: CR XR HIP RT COMPLETE AP PELVIS from 10/22/2021 FINDINGS: Fluoroscopy was provided for Dr. Case during the performance of a IT band syndrome treatment. Plea se refer to the procedure report for complete details. Ka,r=1.6 mGy IMPRESSION: RADIATION DOSE DELIVERED:
--- NOTE | 2022-08-30 15:08 | W.PM.DSUDISC ---
Date of service: 08/30/22 Time of Service: 15:08 Discharge Plan Disposition Patient Disposition: Home Discharge Details Attending Provider: Wally Case Primary Care Provider: Christine Dey Home Meds and New Rx's Prescriptions: New aspirin 81 mg tablet,delayed release (DR/EC) 81 mg PO DAILY 14 Days Qty: 14 0RF naproxen 250 mg tablet 250 - 500 mg PO BID PRNQty: 30 0RF Rx Instructions: take with a meal oxycodone 5 mg tablet 5 - 10 mg PO Q4H MDD 30 mg PRN (Reason: moderate to severe pain) Qty: 12 0RF Continued diazepam [Valium] 5 mg tablet 5 mg PO BID PRN Patient Comments: Dr Gómez prescribes, pt takes at night to help him sleep gabapentin 800 mg tablet 800 mg PO TID PRN atorvastatin 40 mg tablet 40 mg PO DAILY Qty: 90 1RF Multiple Vitamin-Minerals Tablet 1 tab PO DAILY Qty: 90 1RF metoprolol succinate 25 mg tablet extended release 24 hr 25 mg PO DAILY Qty: 90 3RF Rx Instructions: 3rd reduction in dosing (2019) oxycodone-acetaminophen 5-325 mg tablet 1 - 2 tab PO TID Patient Comments: per Marissa, pt has been getting this rx from [facility] out of [facility], [address] each time, 1-2 tabs 3x/day not to exceed 5 tabs. omeprazole 20 mg capsule,delayed release(DR/EC) 20 mg PO BID naloxone [Narcan] 4 mg/actuation spray,non-aerosol 4 mg CARLA Q2M PRNQty: 2 0RF Rx Instructions: spray 1 dose into ONE nostril; alternate nostrils w each dose until help arrives Discontinued celecoxib 200 mg capsule 1 cap PO BID Discharge Instructions Additional Instructions: Surgery: Right hip endoscopy with iliotibial band release and trochanteric bursectomy Activity: Weightbearing as tolerated. May use crutches or walker as needed for a few days. Gradually advance to full range of motion and activity over the next few weeks. A physical therapy prescription will be provided separately in the office at follow up if needed. Prescriptions: Aspirin 81 mg take 1 daily to prevent a blood clot for 2 weeks Naproxen 250 mg take 1-2 every 12 hours with a meal as needed for moderate pain Oxycodone 5 mg take 1-2 every 4-6 hours as needed for severe pain You may use [id number] Tylenol (acetaminophen) as needed for mild pain. These pain medications may be taken all at once or in different combinations as needed. Also, recommend Colace (docusate) as a stool softener as surgery and pain medicine cause constipation. You may try [id number] diphenhydramine (Benadryl) 25-50 mg nightly as a sleep aid Dressings: Leave dressing in place for 3 days. May then remove and leave open to air or cover incisions with Band-Aids. Leave the sticky Steri-Strips in place until they fall off or remove them after you shower. May shower after 5 days. Follow-up: 10-[address] Case You may take off the leg compression stockings this evening at home. You may also leave them on a few days longer if you have a history of leg swelling or edema. Let us know right away if you develop any redness, drainage, fevers, chest pain, or trouble breathing. Do not drink alcohol or drive for at least 24 hours after anesthesia. Please call the office during business hours with any questions or concerns. Discharge Orders Discharge Orders: Discharge Order (Routine); Ordered 08/30/22 Ordered By: Wally Case DS: Diagnosis Discharge Diagnosis (1) Iliotibial band syndrome of right side: Status: Acute
--- NOTE | 2022-08-30 15:13 | ROE_ITS ---
Date of service: 08/30/22 Time of Service: 15:30 Operative Note Operative Note DATE OF PROCEDURE: 08/30/22 PRE-OP DIAGNOSIS: Right hip 1. Iliotibial band syndrome 2. Trochanteric bursitis POST-OP DIAGNOSIS: same PROCEDURE: Right hip endoscopic 1. Iiliotibial band release, CPT# 67135 2. Trochanteric bursectomy, CPT# 25121 SURGEON: Wally Case ANESTHESIA TYPE: Local By Surgeon and General LMA/ETT Refer to Anesthesia Record ESTIMATED BLOOD LOSS: 5 COMPLICATIONS: None Patient was transported to: PACU Patient's condition: stable Indications: Please see complete medical record for details. Findings: Taught iliotibial band. Abundant inflamed trochanteric bursitis. Intact gluteal tendons. Procedure Description: In the operating room, general anesthesia was induced. The patient was positioned supine on the [place] operating room table. All bony prominences were w ell-padded. Preoperative antibiotics were administered. The hip was prepped and draped in the usual sterile fashion. The correct patient, procedure, and side of the procedure were all verified prior to incision. 30 cc of 0.25% bupivacaine containing epinephrine was infiltrated about the subcutaneous tissues for the planned anterior lateral and distal anterolateral portals as well as deeply over the greater trochanter. A knife was used to incise the skin for the anterior lateral and distal anterolateral portals followed by blunt dissection subcutaneously. Under fluoroscopic guidance, a sw itching stick and arthroscope were inserted localizing the iliotibial band over the greater trochanter. Blunt dissection and the mechanical shaver were used to resect fat and overlying tissue about the center of the iliotibial band and carefully expose the anterior and posterior margins. Once there was adequate exposure of the IT band, the greater trochanter was again localized under fluoroscopic guidance with a spinal needle inserted through the skin down to bone. This central area was marked using the radiofrequency ablator. A [place] blade was brought in and used to create a 2 cm longitudinal incision in line with the IT band fibers as well as extending it in a cruciate fashion with 2 cm incisions anteriorly and posteriorly. The radiofrequency ablator was used to achieve hemostasis. The mechanical shaver was then used to debride the IT band released edges exposing the trochanteric bursa. The mechanical shaver was then used to excise the trochanteric bursa taking care to protect musculature about the margins of the greater trochanter as well as neurovascular structures especially posteriorly. There was excellent visualization of the vastus lateralis as well as gluteus medius confirming appropriate bursa excision. The hip was brought through range of motion including internal and external rotation and there was no impinging iliotibial band tissue or remaining pathologic bursa. The viewing and working portals were switched and appropriate IT band release, trochanteric bursa excision, and hemostasis confirmed. Suction was used to remove fluid from the endoscopic space. The portals were closed using 3-0 Monocryl in a buried fashion. Steri-Strips were applied over the incisions followed by Xeroform, 4 x 4 gauze, an ABD pad, and secured with tape. The patient awoke from anesthesia without complication and was transferred to the recovery room in a stable condition.
[2022-08-30] MEDS: ceFAZolin 2 GM/50 ML BAG IVPB (16:17)
[2022-08-30] MEDS: Bupivacaine 0.25% Pres-Free W/EPI 30 ML VIAL (16:35)
[2022-08-30] MEDS: EPINEPHrine 30 MG/30 ML VIAL (16:45)
[2022-08-30 17:20] VITALS: BP 142/71; PULSE 70; RESP 18; TEMP 36.6; O2SAT 96
[2022-08-30 17:25] VITALS: BP 125/69; PULSE 69; RESP 20; TEMP 36.8; O2SAT 95
[2022-08-30 17:30] VITALS: BP 146/81; PULSE 73; RESP 15; TEMP 36.8; O2SAT 97
[2022-08-30 17:40] VITALS: BP 138/80; PULSE 68; RESP 16; TEMP 36.4; O2SAT 96
[2022-08-30] MEDS: oxyCODONE 5 MG TAB PO (17:51)
[2022-08-30 18:10] VITALS: BP 129/88; PULSE 61; RESP 16; TEMP 36.5; O2SAT 98
--- NOTE | 2022-08-30 19:28 | W.ANESPOSTOP ---
Postoperative Evaluation Date, Time and Location Date Performed: 08/30/22 Time Performed: 18:15 Patient Location: Day Surgery Unit Vital Signs Most Recent Imported Vital Signs: Most Recent Vital Signs Temp Pulse Resp BP Pulse Ox 36.5 C 61 16 129/88 98 08/30/22 18:10 08/30/22 18:10 08/30/22 18:10 08/30/22 18:10 08/30/22 18:10 Pain Score Most Recent Pain Score: Most Recent Pain Score Pain Level 6 08/30/22 18:10 Assessment Mental Status: Awake (Alert & Oriented to Patient Baseline) Airway and Respiratory Function: Patent airway with normal (patient baseline) respiratory exam Cardiovascular Function: Hemodynamically Stable Hydration Status: Adequately Hydrated Nausea & Vomiting: No Nausea or Vomiting Pain: Pain is tolerable per patient (Reporting a pain score of 6/10 but denying it being intolerable. ) Peripheral Nerve Block: Patient did not receive a nerve block
== END 2022-08-30 18:45 | disposition home or self-care (01) ==
PROVIDERS: PCP Student in an Organized Health Care Education/Training Program; Visit Provider Student in an Organized Health Care Education/Training Program
PROC: (CPT 29863; principal; 2022-08-30 14:15)
DX: M76.31 Iliotibial band syndrome, right leg (principal); M70.61 Trochanteric bursitis, right hip
CPT/HCPCS: 27062; 27305; 73501; J0690; J1100; J2370; J2405; J2704; J3475

== ENCOUNTER → 2022-09-11 13:26 | Outpatient (BNVA) | payer MEDICARE, SELFPAY | PROVIDERS: PCP Student in an Organized Health Care Education/Training Program; Referring Provider Student in an Organized Health Care Education/Training Program; Visit Provider Student in an Organized Health Care Education/Training Program | DX: M76.31 Iliotibial band syndrome, right leg (principal); M70.61 Trochanteric bursitis, right hip ==

== ENCOUNTER 2022-10-16 01:25 | Outpatient (CLI) | payer MEDICARE, SELFPAY ==
--- NOTE | 2022-10-16 | DI.MRI_ITS ---
Exam(s) MR LUMBAR SPINE WO EXAM: MR LUMBAR SPINE WO CLINICAL HISTORY: SPINAL STENOSIS, M48.062 WITH NEUROGENIC CLAUDICATION. TECHNIQUE: Multiplanar multisequence MRI of the Lumbar spine was performed. COMPARISON: MR MRI - LUMBAR SPINE W/WO CONT from 05/29/2015 CR XR HIP RT COMPLETE AP PELVIS from 10/22/2021 FINDINGS: Bones: The last intervertebral disc space is designated the L5/S1 level for the numbering purpose of this examination. The vertebral body heights are well maintained. Levoscoliosis. The marrow signal characteristics are unremarkable. Cord: The conus tip ends at the T12 level. It is of normal size and signal intensity. T12-L1: Moderate loss of disc height endplate osteophytes projecting anteriorly. No central spinal c anal or neural foraminal stenosis. Stable from prior. L1-2: No disc herniations or bulges are present. No central spinal canal or neural foraminal stenosis . L2-3: Severe loss of disc height. Prominent endplate osteophytes. Degenerative signal changes in th e marrow. Facet degenerative changes and ligamentous hypertrophy combining to produce moderate centr al canal stenosis. There is severe right and moderate left neural foraminal narrowing. The findings show significant worsening compared with the previous exam L3-4: Somewhat limited evaluation on axial images due to hardware. Severe loss of disc height and en dplate osteophytes. Severe right and moderate left neural foraminal narrowing. No central spinal ca nal stenosis. L4-5: Posterior fusion hardware in place which creates artifact. laminectomy defect. Severe left ne ural foraminal narrowing. Stable from prior. L5-S1: Moderate loss of disc height and broad-based disc osteophytes. Facet degenerative changes. N o significant central canal stenosis. Moderate left and mild right neural foraminal narrowing. Find ings appear stable from prior. The visualized SI joints and sacrum are well maintained. Soft tissues: The paraspinal soft tissues are unremarkable. IMPRESSION: Significant interval worsening degenerative changes at L2-3, causing moderate central canal stenosis and bilateral neural foraminal narrowing. Stable appearance of L4-5 with posterior fusion hardware i n place. DATA REPOSITORY:
== END 2022-10-16 01:45 ==
LOC: DI 01:25
PROVIDERS: PCP Student in an Organized Health Care Education/Training Program; Visit Provider Family Medicine
DX: M48.062 Spinal stenosis, lumbar region with neurogenic claudication (principal); M51.37 Other intervertebral disc degeneration, lumbosacral region; Z98.1 Arthrodesis status; M47.897 Other spondylosis, lumbosacral region
CPT/HCPCS: 72148

== ENCOUNTER 2022-12-05 02:21 | Outpatient (CLI) | payer MEDICARE, SELFPAY ==
--- NOTE | 2022-12-05 | DI.CT_ITS ---
Exam(s) CT LUMBAR SPINE WO EXAM: CT LUMBAR SPINE WO CLINICAL HISTORY: LOW BACK PAIN,M54.50,SPINAL STENOSIS,M48.062,ARTHRODESIS STATUS,Z98.1,LEG P. TECHNIQUE: Imaging Protocol: Axial computed tomography images with coronal and sagittal reformatted images were created and reviewed COMPARISON: CT LUMBAR SPINE WITHOUT CONTRAST from 05/28/2015 CT HEAD AND CSPINE W/O CONTRAST from 11/28/2015 CR XR HIP RT COMPLETE AP PELVIS from 10/22/2021 MR MR LUMBAR SPINE WO from 10/16/2022 FINDINGS: Bones: The last intervertebral disc space is designated the L5/S1 level for the numbering purpose of this examination. The vertebral body heights are well maintained. Endplate osteophytes noted at multiple levels. Posterior fusion hardware at L4-5 which appears intact. No fracture is seen. T12-L1: Moderate loss of disc height. No disc herniations or bulges are present. L1-2: No disc herniations or bulges are present. L2-3: Severe loss of disc height. Endplate osteophytes project mildly posteriorly. Significant lig amentous hypertrophy. Moderate central canal stenosis. Mild bilateral neural foraminal narrowing. L3-4: Severe loss of disc height. Endplate osteophytes projecting posteriorly. There is artifact a t this level related to the pedicle screws. Central canal not well seen at this level. There is lizbet ral foraminal narrowing on the right. L4-5: Posterior fusion hardware. At the L5 level, the right-sided screw is positioned through the r ight pars and extends into the central canal and into the vertebral body. The left-sided screw is se en at the level of the facet joint extending into the transverse process and left lateral aspect of t he vertebral body. The position appears unchanged when compared with on the 2015 exam. There is fus ion between the L4-5 disc. Laminectomy is present. There is no central canal stenosis or neural for aminal narrowing. L5-S1: Moderate loss of disc height and endplate osteophytes. No significant central canal stenosis . Bilateral neural foraminal narrowing. The visualized SI joints and sacrum are will maintained. Soft Tissues: The paraspinal soft tissues are unremarkable. IMPRESSION: Stable degenerative and postsurgical changes. RADIATION DOSE DELIVERED: 744.97mGy.cm Total DLP DATA REPOSITORY: All CT scans at this facility are submitted to the National Radiology Data Registry (NRDR) Dose Index Registry (DIR) with the [employer] ([employer]). RADIATION OPTIMIZATION: All CT scans at this facility use at least one of these dose optimization te chniques: automated exposure control; mA and/or kV adjustment per patient size (includes targeted exa ms where dose is matched to clinical indication); or iterative reconstruction.
== END 2022-12-05 02:41 ==
LOC: DI 02:21
PROVIDERS: PCP Student in an Organized Health Care Education/Training Program; Visit Provider Physician Assistant Surgical
DX: Z98.890 Other specified postprocedural states (principal); M54.50 Low back pain, unspecified; M48.062 Spinal stenosis, lumbar region with neurogenic claudication; Z98.1 Arthrodesis status
CPT/HCPCS: 72131

== ENCOUNTER 2022-12-25 14:08 | Outpatient (CLI) | payer MEDICARE, SELFPAY ==
[2022-12-25 12:58] LABS: HGB 15.6 g/dL (13.5-17.5)
[2022-12-25 13:04] LABS: Hemoglobin A1C 5.6 % (<5.7)
[2022-12-25 13:22] LABS: ALT 42 U/L (16-63); AST 27 U/L (15-37); Albumin 4.6 g/dL (3.4-5.0); Alkaline Phosphatase 60 U/L (46-116); Anion Gap 13.7 mmol/L (3-11); BUN 16 mg/dL (7-18); Bilirubin, Direct 0.1 mg/dL (0.0-0.2); Bilirubin, Total 0.5 mg/dL (0.2-1.0); CO2 22.3 mmol/L (21.0-32.0); CREATININE 1.2 mg/dL (0.70-1.30); Calcium 9.6 mg/dL (8.5-10.1); Chloride 99 mmol/L (98-107); Estimated GFR 69.23 (mL/min/1.73m2); Glucose 138 mg/dL (74-106); Potassium 4.2 mmol/L (3.5-5.1); Sodium 135 mmol/L (136-145); Total Protein 8.4 g/dL (6.4-8.2)
[2022-12-25 13:59] LABS: Vitamin B12 632 pg/mL (193-986)
[2022-12-25 14:02] LABS: Vitamin D 25 Total 39.1 ng/mL (30-100)
[2022-12-25 14:03] LABS: Folate > 20.0 ng/mL (8.6-20.0)
== END 2022-12-25 14:09 | disposition home or self-care (01) ==
LOC: LBO 14:09
PROVIDERS: PCP Student in an Organized Health Care Education/Training Program; Visit Provider Student in an Organized Health Care Education/Training Program
DX: E86.0 Dehydration (principal); G89.29 Other chronic pain; I10 Essential (primary) hypertension; K76.9 Liver disease, unspecified; R19.7 Diarrhea, unspecified; R73.09 Other abnormal glucose; Z63.79 Other stressful life events affecting family and household; Z78.9 Other specified health status; Z91.89 Other specified personal risk factors, not elsewhere classified; E46 Unspecified protein-calorie malnutrition; G62.9 Polyneuropathy, unspecified; Z98.890 Other specified postprocedural states; F55.8 Abuse of other non-psychoactive substances; S36.119A Unspecified injury of liver, initial encounter; X58.XXXA Exposure to other specified factors, initial encounter
CPT/HCPCS: 36415; 80048; 80076; 82306; 82607; 82746; 83036; 85018

== ENCOUNTER 2023-01-17 08:51 | Outpatient (CLI) | payer MEDICARE, SELFPAY ==
--- NOTE | 2023-01-17 08:45 | RT.EKG_ITS ---
APPROVED REPORT Exam: Resting ECG Reason for Exam: Preop for back surgery Patient Location: O HR:48 bpm ECG Measurements Heart Rate 48 AXIS AZ 201 P 51 QRSd 111 QRS -47 QT 414 T -35 QTc 370 Conclusion Sinus bradycardia...rate< 50 LAD, consider left anterior fascicular block...axis(240,-40), S>R II III aVF
== END 2023-01-17 08:52 | disposition home or self-care (01) ==
LOC: DI.KIM 08:52
PROVIDERS: PCP Student in an Organized Health Care Education/Training Program; Visit Provider Student in an Organized Health Care Education/Training Program
DX: Z01.818 Encounter for other preprocedural examination (principal)
CPT/HCPCS: 93010

== ENCOUNTER → 2023-03-04 01:36 | Outpatient (CLI) | payer MEDICARE, SELFPAY ==
--- NOTE | 2023-03-04 07:30 | DI.RAD_ITS ---
Exam(s) XR CERVICAL SP COMP W FLEX/EXT EXAM: XR CERVICAL SP COMP W FLEX/EXT CLINICAL HISTORY: eval vert spacing/height, tremor lt hand, weakness lt arm. TECHNIQUE: 2D digital imaging was performed. Eight images were obtained. AP, odontoid, flexion, exte nsion, lateral and bilateral oblique images were obtained. COMPARISON: No exams were available for comparison FINDINGS: The odontoid is intact. The lateral masses are well aligned. There is a very mild left convex curvat ure of the cervical spine. There is disc space narrowing at C4-5, C5-6 and C6-C7. Endplate osteophy gerson are also seen at these levels. 1-2 mm anterolisthesis of C3 on C4 is noted. This increases to 4 mm with flexion. No acute fracture or subluxation is present. There is mild narrowing of the right neural foramen at C5-6 and C6-C7. The cervical thoracic junction is well maintained. The prevertebra l soft tissues are unremarkable. Lung apices are clear. IMPRESSION: 1. [id number] degenerative changes seen in the cervical spine from C4-5 through C6-C7. 2. Mild right neural foraminal narrowing at C5-6 and C6-C7. 3. 1-2 mm anterolisthesis of C3 on C4 in the neutral position which increases to 4 mm with flexion. DATA REPOSITORY: RADIATION DOSE DELIVERED:
== END ==
PROVIDERS: PCP Student in an Organized Health Care Education/Training Program; Visit Provider Student in an Organized Health Care Education/Training Program
DX: M47.812 Spondylosis without myelopathy or radiculopathy, cervical region (principal); R25.1 Tremor, unspecified; R29.898 Other symptoms and signs involving the musculoskeletal system
CPT/HCPCS: 72052

== ENCOUNTER 2023-04-09 18:59 | Emergency (ER) | payer MEDICARE, SELFPAY ==
[2023-04-09] VITALS (31 sets, daily range): BP systolic 88–165; BP diastolic 46–96; PULSE 62–83; RESP 8–22; TEMP 36.8; O2SAT 94–99
--- NOTE | 2023-04-09 18:45 | RT.EKG_ITS ---
APPROVED REPORT Exam: Resting ECG Reason for Exam: chest pain Patient Location: E HR:70 bpm ECG Measurements Heart Rate 70 AXIS DC 193 P 63 QRSd 122 QRS -47 QT 392 T 40 QTc 424 Conclusion Sinus rhythm... V-rate 60- [address]. [address] segment or T wave abnormalities to suggest occlusive ME
[2023-04-09 19:25] LABS: Abs Immature Grans 0.03 10^3/uL (0.0-0.06); Absolute Basophil Count 0.06 10^3/uL (0.0-0.2); Absolute Monocyte Count 0.81 10^3/uL (0.1-0.8); Basophils % 0.5; Eosinophils % 1.8; HCT 40.2 % (40.0-50.0); Immature Grans % 0.3; Lymphocytes % 23.7; MCH 31.3 pg (27.0-33.0); MCHC 34.8 % (32.0-36.0); MCV 90 fL (80-95); MPV 8.6 fL (8.0-11.0); Monocytes % 7.1; Neutrophils % 66.6; Platelet Count 210 10^3/uL (130-400); RBC 4.47 10^6/uL (4.36-5.78); RDW-SD 39.8 fL; WBC 11.38 10^3/uL (4.4-10.8)
--- NOTE | 2023-04-09 19:27 | W.ED.GENAD ---
Discharge Plan Disposition Patient Disposition: Home Condition: Stable Discharge Details Clinical Impression: Musculoskeletal chest pain Primary Care Provider: Christine Dey ED Provider: Soledad Hodges Home Meds and New Rx's Prescriptions: Continued ibuprofen 800 mg tablet 800 mg PO TID omeprazole 20 mg capsule,delayed release(DR/EC) 20 mg PO BID Qty: 60 1RF oxycodone-acetaminophen 5-325 mg tablet 2 tab PO TID Patient Comments: per Marissa pt has been getting this rx from Christoph Thompson out of [facility], [address] each time, 1-2 tabs 3x/day not to exceed 5 tabs. Rx Instructions: Recommending 2 tabs TID x next 10 days! IK, 10/25/[address] KAUR fluticasone propionate 50 mcg/actuation spray,suspension 2 spray intranasal QHS Qty: 16 2RF Rx Instructions: administer into each nostril for congestion, nightly gabapentin 800 mg tablet See Rx Instructions PO TID PRN Patient Comments: taking 1/2 tab BID Rx Instructions: 800mg qHD, 400mg AM, 400mg 2-3PM (DME) Orthopedic Shoes See Rx Instructions .Route .MEDSUPPLY Qty: 1 0RF Rx Instructions: For neuropathic pain diazepam 10 mg tablet See Rx Instructions PO .COMPLEX MDD 30mg PRN (Reason: muscle spasm/relaxation; sleep) Qty: 7 0RF Rx Instructions: 20mg qHS, with added 10mg daily post surgery orally x 1 week PRN; Short-term increase post neuro-surgery, ik. naloxone [Narcan] 4 mg/actuation spray,non-aerosol 4 mg CARLA Q2M PRN (Reason: opioid overdose) Qty: 2 1RF Rx Instructions: spray 1 dose into ONE nostril; alternate nostrils w each dose until help arrives Multiple Vitamin-Minerals Tablet 1 tab PO DAILY Qty: 90 1RF atorvastatin 40 mg tablet 40 mg PO DAILY Qty: 90 3RF metoprolol succinate 50 mg tablet extended release 24 hr 50 mg PO DAILY Qty: 90 0RF Rx Instructions: Trial increased dose, monitor closely Discharge Instructions Instructions: Chest Pain (ED) Additional Instructions: There was no emergency condition identified in your lab or CAT scan to explain your symptoms. You should continue your usual medications as previously directed follow-up with your primary care provider or return sooner for new or worsening symptoms Referrals: Christine Dey DO [Primary Care Provider] - Medical Decision Making Patient presents with a reproducible right upper extremity and chest wall pain denies trauma. Received aspirin and nitro prior to arrival no improvement in his symptoms. His EKG shows no acute ST segment changes. He will be placed on a electronic device monitor and will be closely monitored while labs pending. He is given Toradol 30 mg IV push and acetaminophen 1000 mg IV piggyback with some improvement in his symptoms. His D-dimer unfortunately is elevated at [address] with contrast to rule out PE or dissection. He is now reporting ongoing pain but objectively looks much more comfortable. He will be given oxycodone 10 mg which is a home medication for him. He states his last dose of Percocet was at 11 AM this morning. Continues to remain hemodynamically stable and objectively more comfortable. His significant other is in the room and agrees that he looks much improved. CT labs reviewed and no etiology to explain his reproducible pain. Suspect possibly muscle skeletal. He is stable for discharge to home should follow-up with his primary care provider Medical Records Medical records reviewed: Yes I reviewed the patient's medical records. Imaging Data Radiologic Study: Imaging: CT Scan Radiologist's impression: Patient Name: Subhash Olivares Unit #: [id number] Loc: ER ? Ordering Provider:? Status: REG ER ? Primary Care Provider: Christine Dey DO Date of Exam: 04/09/23 Sex: M ? : 1960 Age: 62 ? Exam(s) PROCEDURE INFORMATION: Exam: CTA Chest With Contrast Exam date and time: 04/09/2023 8:32 PM Age: 62 years old Clinical indication: Other: Chest pain right, elevated dimer, pe vs dissection TECHNIQUE: Imaging protocol: Computed tomographic angiography of the chest with contrast. Exam focused on the arteries. 3D rendering (Not supervised by radiologist): MIP and/or 3D reconstructed images were created by the technologist. Radiation optimization: All CT scans at this facility use at least one of these dose optimization techniques: automated exposure control; mA and/or kV adjustment per patient size (includes targeted exams where dose is matched to clinical indication); or iterative reconstruction. Contrast material: OMNI 350; Contrast volume: 100 ml; Contrast route: INTRAVENOUS (IV);? COMPARISON: CT CHEST LUNG CANCER SCREEN 08/17/2021 1:00 PM FINDINGS: Pulmonary arteries: The pulmonary arteries enhance appropriately with no evidence of pulmonary embolism. Assessment of the small peripheral branch vessels in the lung bases was moderately limited by gross respiratory motion, particularly on the left, although no suspected peripheral emboli were identified. Aorta: Mild aortic ectasia/tortuosity and calcific atherosclerosis. No aortic aneurysm or dissection. No mediastinal hematoma. Thyroid: The visualized thyroid gland demonstrates no gross abnormality. Lungs: No acute tracheobronchial abnormalities. No gross pulmonary infiltrates or edema pattern. Minor paraseptal emphysematous changes in the upper lung lucas bilaterally. Pleural spaces: No pleural effusion. No pneumothorax. Heart: Heart size normal. Mild coronary artery calcification. No pericardial effusion. Mediastinal space: Question mild esophageal wall thickening suspicious for esophagitis. Consider nonemergent esophagram or endoscopic assessment as clinically indicated. Lymph nodes: No supraclavicular or axillary adenopathy. Mildly enlarged superficial AP window node at 11 mm short axis is nonspecific. No other mediastinal theron enlargement. No hilar theron enlargement. 10 mm ovoid juxtapleural pulmonary nodule versus fissural node along the minor fissure series 6, image 304 is unchanged from 08/16/2020 and does not require further evaluation. 4 mm juxtapleural nodule in the anterior right middle lobe image 361 is also unchanged as is a 6 mm juxtapleural nodule in the lateral right lower lobe image 408 and a 7 mm juxtapleural nodule in the posterior right lower lobe image 305. These do not require further assessment. Intraperitoneal space: Visualized upper abdominal structures are unremarkable. Bones/joints: No acute osseous abnormalities are identified. Mild thoracic spondylosis. Soft tissues: Mild bilateral symmetrical gynecomastia noted. IMPRESSION: 1. ? No evidence of pulmonary embolism or aortic dissection. Assessment of the small peripheral pulmonary arterial branch vessels in the lung bases was limited by respiratory motion. 2. ? Question mild esophageal wall thickening suspicious for esophagitis. No evidence of obstruction or perforation. 3. ? Mildly enlarged superficial AP window node at 11 mm short axis is nonspecific in nature. No other theron enlargement. 4. ? Additional nonemergent findings detailed above. Dictated and Authenticated by: Jorge Hutchins MD. Ordering:CISCO Rowe MD Lab Data Lab results reviewed: Yes I reviewed the patient's lab results. Lab results narrative: Laboratory Tests Range/Units 04/09/23 04/09/23 04/09/23 19:15 19:15 19:15 WBC (4.4-10.8) 10^3/uL 11.38 H RBC (4.36-5.78) 10^6/uL 4.47 Hgb (13.5-17.5) g/dL 14.0 Hct (40.0-50.0) % 40.2 MCV (80-95) fL 90 MCH (27.0-33.0) pg 31.3 MCHC (32.0-36.0) % 34.8 RDW (11.8-14.1) % 12.0 Plt Count (130-400) 10^3/uL 210 MPV (8.0-11.0) fL 8.6 Immature Gran % 0.3 Neutrophils % 66.6 Lymphocytes % 23.7 Monocytes % 7.1 Eosinophils % 1.8 Basophils % 0.5 Nucleated RBC % (0.0-0.3) % 0.0 Absolute Neutrophils (1.2-6.7) 10^3/uL 7.58 H Absolute Lymphocytes (1.2-3.4) 10^3/uL 2.70 Absolute Monocytes (0.1-0.8) 10^3/uL 0.81 H Absolute Eosinophils (0.0-0.7) 10^3/uL 0.20 Absolute Basophils (0.0-0.2) 10^3/uL 0.06 D-Dimer (<500) ng/mlFEU Sodium (136-145) mmol/L 138 Potassium (3.5-5.1) mmol/L 3.8 Chloride (98-107) mmol/L 104 Carbon Dioxide (21.0-32.0) mmol/L 22.6 Anion Gap (3-11) mmol/L 11.4 H BUN (7-18) mg/dL 11 Creatinine (0.70-1.30) mg/dL 1.0 Est GFR (CKD-EPI 2020) (mL/min/1.73m2) 86.16 Glucose (74-106) mg/dL 91 Calcium (8.5-10.1) mg/dL 9.1 Magnesium (1.8-2.4) mg/dL 1.9 Total Bilirubin (0.2-1.0) mg/dL 0.3 AST (15-37) U/L 24 ALT (16-63) U/L 31 Alkaline Phosphatase (46-116) U/L 57 Troponin I (<or=60) ng/L < 50 NT-Pro-B Natriuret Pep (<300) pg/mL 73 Total Protein (6.4-8.2) g/dL 7.7 Albumin (3.4-5.0) g/dL 4.1 Urine Opiates Screen (Negative) Urine Methadone Screen (Negative) Ur Barbiturates Screen (Negative) Ur Tricyclics Screen (Negative) Ur Amphetamines Screen (Negative) U Benzodiazepines Scrn (Negative) Urine Cocaine Screen (Negative) Ur THC Screen (Negative) Range/Units 04/09/23 04/09/23 19:15 20:31 WBC (4.4-10.8) 10^3/uL RBC (4.36-5.78) 10^6/uL Hgb (13.5-17.5) g/dL Hct (40.0-50.0) % MCV (80-95) fL MCH (27.0-33.0) pg MCHC (32.0-36.0) % RDW (11.8-14.1) % Plt Count (130-400) 10^3/uL MPV (8.0-11.0) fL Immature Gran % Neutrophils % Lymphocytes % Monocytes % Eosinophils % Basophils % Nucleated RBC % (0.0-0.3) % Absolute Neutrophils (1.2-6.7) 10^3/uL Absolute Lymphocytes (1.2-3.4) 10^3/uL Absolute Monocytes (0.1-0.8) 10^3/uL Absolute Eosinophils (0.0-0.7) 10^3/uL Absolute Basophils (0.0-0.2) 10^3/uL D-Dimer (<500) ng/mlFEU 996 H Sodium (136-145) mmol/L Potassium (3.5-5.1) mmol/L Chloride (98-107) mmol/L Carbon Dioxide (21.0-32.0) mmol/L Anion Gap (3-11) mmol/L BUN (7-18) mg/dL Creatinine (0.70-1.30) mg/dL Est GFR (CKD-EPI 2020) (mL/min/1.73m2) Glucose (74-106) mg/dL Calcium (8.5-10.1) mg/dL Magnesium (1.8-2.4) mg/dL Total Bilirubin (0.2-1.0) mg/dL AST (15-37) U/L ALT (16-63) U/L Alkaline Phosphatase (46-116) U/L Troponin I (<or=60) ng/L NT-Pro-B Natriuret Pep (<300) pg/mL Total Protein (6.4-8.2) g/dL Albumin (3.4-5.0) g/dL Urine Opiates Screen (Negative) Negative Urine Methadone Screen (Negative) Negative Ur Barbiturates Screen (Negative) Negative Ur Tricyclics Screen (Negative) Negative Ur Amphetamines Screen (Negative) Negative U Benzodiazepines Scrn (Negative) Positive A Urine Cocaine Screen (Negative) Negative Ur THC Screen (Negative) Positive A HPI General Mode of arrival: EMS. Date/Time Provider Initiated Documentation: 04/09/23 19:26. Limitations to Documentation: no limitations. Information obtained by: patient. HPI Narrative: This is a 62-year-old male patient who reports he was in his usual state of health when he developed severe right sided chest and upper extremity pain that he reports as nontraumatic. Denies any, injury or fall states that he was in his usual health when it suddenly came on. Pain is worse with movement. He received aspirin and nitro prior to arrival with no improvement in his symptoms. Denies shortness of breath he was reported as being diaphoretic. Reported tobacco and alcohol use Related Data Home Medications Medication Instructions Recorded Confirmed multivitamin with minerals 1 tab PO DAILY #90 tabs 03/06/22 03/01/23 (Multiple Vitamin-Minerals tablet) atorvastatin 40 mg tablet 40 mg PO DAILY #90 tabs 09/05/22 03/01/23 omeprazole 20 mg capsule,delayed 20 mg PO BID #60 caps 10/25/22 03/01/23 release Orthopedic Shoes #1 ea 11/22/22 03/01/23 fluticasone propionate 50 2 spray intranasal QHS congestion 11/22/22 03/01/23 mcg/actuation nasal #16 grams spray,suspension gabapentin 800 mg tablet See Rx Instructions PO TID PRN 11/22/22 03/01/23 oxycodone-acetaminophen 5 mg-325 2 tab PO TID 11/22/22 03/01/23 mg tablet metoprolol succinate 50 mg 50 mg PO DAILY #90 tabs 01/14/23 03/01/23 tablet,extended release 24 hr ibuprofen 800 mg tablet 800 mg PO TID 02/21/23 03/01/23 diazepam 10 mg tablet See Rx Instructions PO .COMPLEX 03/10/23 03/10/23 PRN muscle spasm/relaxation; sleep #7 tabs naloxone 4 mg/actuation nasal 4 mg intranasal Q2M PRN opioid 03/10/23 03/10/23 spray (Narcan) overdose #2 ea Previous Rx's Medication Instructions Recorded multivitamin with minerals 1 tab PO DAILY #90 tabs 03/06/22 (Multiple Vitamin-Minerals tablet) atorvastatin 40 mg tablet 40 mg PO DAILY #90 tabs 09/05/22 omeprazole 20 mg capsule,delayed 20 mg PO BID #60 caps 10/25/22 release Orthopedic Shoes #1 ea 11/22/22 fluticasone propionate 50 2 spray intranasal QHS congestion 11/22/22 mcg/actuation nasal #16 grams spray,suspension metoprolol succinate 50 mg 50 mg PO DAILY #90 tabs 01/14/23 tablet,extended release 24 hr diazepam 10 mg tablet See Rx Instructions PO .COMPLEX 03/10/23 PRN muscle spasm/relaxation; sleep #7 tabs naloxone 4 mg/actuation nasal 4 mg intranasal Q2M PRN opioid 03/10/23 spray (Narcan) overdose #2 ea Allergies Allergy/AdvReac Type Severity Reaction Status Date / Time No Known Allergies Allergy Verified 02/21/23 09:48 General Stated Complaint: Chest Pain ROSMERY: 3 Review of Systems All systems reviewed & are unremarkable except as noted in HPI and below PFSH All Active Problems (Updated 04/09/23 @ 22:08 by Soledad Hodges NP) Musculoskeletal chest pain (Acute) History of anemia (Acute) Part 02/19/2022 labs, improved since then her December 2022 hemoglobin.. [] Recheck Malnutrition compromising bodily function (Acute) eating less, post surgery and 2' fatigue, depression (?) Back pain with risk for osteoporosis (Acute) At high risk for osteoporosis (Acute) Back stiffness (Acute) Cervical spine degeneration (Acute) per 01/2021 MRI .. is newleft hand tremor/shake assoc?? Weakness of left arm (Acute) weakness, shaking vs tremor? vs mm spasm? Tremor of left hand (Acute) Back pain with history of spinal surgery (Acute ~01/23/23) Laminectomy, Facetectomy & Foraminotomy, Lumbar, One level, Alexandru (WRVU 15.37). [place] Lumbar stenosis (Acute) 12/03/22 [facility] Neurology note Difficulty sleeping (Acute) 2' pain as well as Hx nightmares ( PTSD) Hyperlipidemia (Acute) Severe back pain (Acute) Long Hx lumbar, and post [id number], but moving up into thoracic spine .. Chronic back pain (Chronic) Dr. Thompson (PCP in [place]) prescribes chronic pain medications for this pt Hx of spinal surgery (Acute) Back injury (Acute) Long-standing deterioration post injuries [] and multiple surgeries Stress due to illness of family member (Acute) Stressful life events affecting family and household (Acute) House; In-laws; Multiple UTIs; Chr Pain.. 06/2022 Essential hypertension (Chronic) Hx HTN, low recently .. STOPPED HCTZ 01/2019 .. Lowered BB, stay @ 25mg Hypotension (Acute 09/2018) New issue .. decreasing BB . Stay at 25mg 02/10/19 Lung nodule, multiple (Chronic) Stable per 08/2020 CT. 04/02/[address] [facility] [address]: recommend 3-6 month f/u. Elevated glucose (Acute) adding a1c Medical History (Updated 04/09/23 @ 22:08 by Soledad Hodges, WILIAM) Anesthesia Per pt. states in the past he has woken up violently, states at night he takes valium to shut his brain off and that works well for him. Pt. states it is related to PTSD from . Cellulitis of right thigh Degenerative joint disease of left hip Diarrhea (03/28/15) Discontinued smoking History of gallbladder disease s/p cholecystectomy, 1979's? .. 1st lap [place] in [place]! Iliotibial band syndrome of right side Post release, Pretty, 09/2022 Left foot pain Distal phalanges (?) #2, #3 ... and/or transverse arch pathology. 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 Ana Garvey MD [facility] PTSD (post-traumatic stress disorder) SARS-CoV-2 positive (~12/18/21) again 04/12/22 Superficial dehiscence of wound Mostly irritating, draining, but significant drainage @ distal section of surg site warranting wound evaluation. Stopped triple-antibiotic in case of aggrav; trial silvadene/gauze. Trochanteric bursitis, left hip Trochanteric bursitis, right hip Injected: 01/15/2019, 10/22/2021 Surgical History (Updated 11/22/22 @ 16:25 by Christine Dye DO) back fusion (11/09/12) back surgery (11/05/05) back surgery (11/17/07) back surgery (11/08/09) Cholecystectomy (~1979) Cubital tunnel syndrome on left S/P ECTR: 07/09/2021 History of right hip replacement History of total replacement of right hip (~04/2018) [facility] Left carpal tunnel syndrome S/P release: 07/09/2021 Status post hip surgery IlioTib Band RELEASE, September 2022 (Pretty).. Hips replaced, L, R years earlier.. Status post total hip replacement, left (01/04/20) Treatment for avascular necrosis of the left hip. Trigger Finger release (10/11/16) RIGHT RING FINGER/DR. POWELL Family History Mother , AD at age 84. Diabetes Heart failure Dementia Father No problems noted. Sister Diabetes Sister , Hypothermia at age 43. No problems noted. Brother Mental disorder Brother No problems noted. Social History Smoking/Tobacco Use Status: Current every day Tobacco Type: pipe and cigars Per week: 14 Tobacco: How many years used: 40 Smoking risk assessment performed?: Yes Alcohol Intake: current Alcohol Intake frequency: a few times a month Alcohol type: beer Drug use: Occasionally Substance use type: marijuana Adopted: No Foster care: No Pets and animals: Yes Pets and animals: cat(s), dog(s) and turtle(s) Current gender identity: male Duration: > 90 minutes/day Seatbelt use: always Helmet use: No Water heater temp set <120 deg: Yes Working smoke detector in home: Yes Fire extinguisher in home: Yes Carbon monox detector in home: Yes Firearms in home: Yes Firearms unloaded and locked: Yes Do you feel safe at home: Yes Do you feel safe in your relationship?: Yes Victim of physical abuse: No Victim of emotional abuse: No Victim of sexual abuse: No Exam Const General: acute distress severe, anxious, disheveled and ill appearing (Older than stated age) chronically Nutritional Appearance: average body habitus HENMT Head: normal to inspection, normocephalic and atraumatic Mouth: oral mucosae normal Chest Chest: normal inspection of the chest Resp Effort & Inspection: normal respiratory effort Auscultation: clear to auscultation bilaterally Cardio Rate: regular rate Rhythm: regular rhythm and other (EKG no acute ST segment changes please see report) GI Inspection: normal to inspection Palpation: soft Extrem General: normal to inspection Right upper extremity: ROM limited (Limited range of motion secondary to the pain) Course Vital Signs Vital signs: Vital Signs Temperature 36.8 C 04/09/23 18:59 Pulse 83 04/09/23 18:59 Respiratory Rate 18 04/09/23 18:59 Blood Pressure 110/77 04/09/23 18:59 Pulse Oximetry 97 04/09/23 18:59 Temperature 36.8 C 04/09/23 18:59 Temperature Source Oral 04/09/23 18:59 Pulse 83 04/09/23 18:59 Respiratory Rate 16 04/09/23 19:11 Respiratory Effort Normal 04/09/23 19:11 Respiratory Depth Normal 04/09/23 19:11 Respiratory Pattern Normal 04/09/23 19:11 Blood Pressure 110/77 04/09/23 18:59 Pulse Oximetry 97 04/09/23 18:59 Oxygen Delivery Method Room Air 04/09/23 18:59 Oxygen Flow Rate 0 04/09/23 18:59 Pain Level 8 04/09/23 19:11 PAWSS Have you Been Recently Intoxicated or Drunk Within the Last 30 days?: No Have you Ever Experienced Previous Episodes of Alcohol Withdrawal?: No Have you ever Experienced Withdrawal Seizures?: No Have you ever Experienced Delirium Tremens(DT)s?: No Have you ever undergone Alcohol Rehabilitation Treatment (i.e, inpt ot outpatient treatment programs)?: No Have you ever Experienced Blackouts?: No Have you ever Combined Alcohol with other Downers within the last 90 days?: No Have you ever Combined Alcohol with any other Substance of Abuse during the last 90 days?: No Positive Blood Alcohol level on Presentation? [PCS.BAL]: No Evidence of Increased Autonomic Activity (i.e. HR>120, tremor, sweating, agitation, nausea)?: No Result: 0
[2023-04-09 19:28] LABS: Absolute Neutrophil Count 7.58 10^3/uL (1.2-6.7)
[2023-04-09] MEDS: Ketorolac 30 MG/ML VIAL IVP (19:42)
[2023-04-09] MEDS: ACETAMINOPHEN 1,000 MG/100 ML BTL 400 MG IVPB (19:42)
[2023-04-09 19:46] LABS: ALT 31 U/L (16-63); AST 24 U/L (15-37); Albumin 4.1 g/dL (3.4-5.0); Alkaline Phosphatase 57 U/L (46-116); Anion Gap 11.4 mmol/L (3-11); BUN 11 mg/dL (7-18); Bilirubin, Total 0.3 mg/dL (0.2-1.0); CO2 22.6 mmol/L (21.0-32.0); Calcium 9.1 mg/dL (8.5-10.1); Chloride 104 mmol/L (98-107); Estimated GFR 86.16 (mL/min/1.73m2); Glucose 91 mg/dL (74-106); Magnesium 1.9 mg/dL (1.8-2.4); Potassium 3.8 mmol/L (3.5-5.1); Sodium 138 mmol/L (136-145); Total Protein 7.7 g/dL (6.4-8.2); Troponin I < 50 ng/L (<or=60)
[2023-04-09 19:49] LABS: NT-proBNP 73 pg/mL (<300)
[2023-04-09 19:57] LABS: D-Dimer 996 ng/mlFEU (<500)
--- NOTE | 2023-04-09 20:00 | DI.CT_ITS ---
Exam(s) CT CHEST PE CTA EXAM: CT CHEST PE CTA CLINICAL HISTORY: chest pain, right, elevated ddimer, pe vs dissecti. TECHNIQUE: Imaging Protocol: CT angiography of the chest was performed using pulmonary embolus horace col. Multi planar reconstructions were performed. CONTRAST MATERIAL: Intravenous: Omnipaque 350 Contrast volume: 100 cc COMPARISON: CT CT CHEST LUNG CANCER SCREEN from 08/17/2021 FINDINGS: CHEST: PULMONARY ARTERIES: There are no intraluminal filling defects to suggest acute pulmonary emboli. LUNGS: No infiltrates nor pleural effusions. No evidence of pulmonary infarction.. Small previously described bilateral nodules remain unchanged. No new nodules. MEDIASTINUM: Single enlarged lymph node in the aortopulmonic window again noted, unchanged. No hilar adenopathy. No other mediastinal adenopathy. No subcarinal adenopathy visualized thyroid unremarka ble. CARDIAC: Heart size normal. No pericardial effusion.Caliber of the thoracic aorta is within normal l imits. No dissection there is no significant shift of the interventricular septum. PARTIALLY VISUALIZED UPPERMOST ABDOMEN: There is circumferential thickening of the distal esophagus. Wall thickness measures 6 mm. No true hiatal hernia evident. OSSEOUS: No significant osseous lesions.No fractures.. IMPRESSION: 1. No evidence of acute pulmonary emboli. No evidence of pulmonary infarction.No pleural effusions. 2. Stable benign-appearing lung nodules. No new nodules. 3. Slightly enlarged AP window lymph node again noted. No new lymphadenopathy in the hilar regions a nd mediastinum. 4. Circumferentially thickened distal esophagus. Probably related to esophagitis. Consider endosco py. RADIATION DOSE DELIVERED: 467.35mGy.cm Total DLP DATA REPOSITORY: All CT scans at this facility are submitted to the National Radiology Data Registry (NRDR) Dose Index Registry (DIR) with the [employer] ([employer]). RADIATION OPTIMIZATION: All CT scans at this facility use at least one of these dose optimization te chniques: automated exposure control; mA and/or kV adjustment per patient size (includes targeted exa ms where dose is matched to clinical indication); or iterative reconstruction.
[2023-04-09] MEDS: Normal Saline Flush 10 ML SYR IVP (20:33)
[2023-04-09] MEDS: Normal Saline - Diluent 50 ML VIAL IJ (20:33)
[2023-04-09] MEDS: Omnipaque 350 MG/ML 100 ML BTL IJ (20:34)
[2023-04-09 21:10] LABS: *AMPHETAMINES SCREEN URINE Negative (Negative); *BARBITURATES SCREEN URINE Negative (Negative); *BENZODIAZEPINES SCREEN URINE Positive (Negative); Cannabinoids THC Positive (Negative); Cocaine Screen,Urine Negative (Negative); METHADONE URINE SCREEN Negative (Negative); OPIATES URINE SCREEN Negative (Negative)
[2023-04-09 21:11] LABS: Tricyclic Antidepressants Negative (Negative)
--- NOTE | 2023-04-09 21:26 | DI.VRAD_ITS ---
PROCEDURE INFORMATION: Exam: CTA Chest With Contrast Exam date and time: 04/09/2023 8:32 PM Age: 62 years old Clinical indication: Other: Chest pain right, elevated dimer, pe vs dissection TECHNIQUE: Imaging protocol: Computed tomographic angiography of the chest with contrast. Exam focused on the arteries. 3D rendering (Not supervised by radiologist): MIP and/or 3D reconstructed images were created by the technologist. Radiation optimization: All CT scans at this facility use at least one of these dose optimization techniques: automated exposure control; mA and/or kV adjustment per patient size (includes targeted exams where dose is matched to clinical indication); or iterative reconstruction. Contrast material: OMNI 350; Contrast volume: 100 ml; Contrast route: INTRAVENOUS (IV); COMPARISON: CT CHEST LUNG CANCER SCREEN 08/17/2021 1:00 PM FINDINGS: Pulmonary arteries: The pulmonary arteries enhance appropriately with no evidence of pulmonary embolism. Assessment of the small peripheral branch vessels in the lung bases was moderately limited by gross respiratory motion, particularly on the left, although no suspected peripheral emboli were identified. Aorta: Mild aortic ectasia/tortuosity and calcific atherosclerosis. No aortic aneurysm or dissection. No mediastinal hematoma. Thyroid: The visualized thyroid gland demonstrates no gross abnormality. Lungs: No acute tracheobronchial abnormalities. No gross pulmonary infiltrates or edema pattern. Minor paraseptal emphysematous changes in the upper lung lucas bilaterally. Pleural spaces: No pleural effusion. No pneumothorax. Heart: Heart size normal. Mild coronary artery calcification. No pericardial effusion. Mediastinal space: Question mild esophageal wall thickening suspicious for esophagitis. Consider nonemergent esophagram or endoscopic assessment as clinically indicated. Lymph nodes: No supraclavicular or axillary adenopathy. Mildly enlarged superficial AP window node at 11 mm short axis is nonspecific. No other mediastinal theron enlargement. No hilar theron enlargement. 10 mm ovoid juxtapleural pulmonary nodule versus fissural node along the minor fissure series 6, image 304 is unchanged from 08/16/2020 and does not require further evaluation. 4 mm juxtapleural nodule in the anterior right middle lobe image 361 is also unchanged as is a 6 mm juxtapleural nodule in the lateral right lower lobe image 408 and a 7 mm juxtapleural nodule in the posterior right lower lobe image 305. These do not require further assessment. Intraperitoneal space: Visualized upper abdominal structures are unremarkable. Bones/joints: No acute osseous abnormalities are identified. Mild thoracic spondylosis. Soft tissues: Mild bilateral symmetrical gynecomastia noted. IMPRESSION: 1. No evidence of pulmonary embolism or aortic dissection. Assessment of the small peripheral pulmonary arterial branch vessels in the lung bases was limited by respiratory motion. 2. Question mild esophageal wall thickening suspicious for esophagitis. No evidence of obstruction or perforation. 3. Mildly enlarged superficial AP window node at 11 mm short axis is nonspecific in nature. No other theron enlargement. 4. Additional nonemergent findings detailed above. Dictated and Authenticated by: Jorge Hutchins MD. Ordering:CISCO Rowe MD
[2023-04-09] MEDS: oxyCODONE 10 MG TAB PO (21:36)
== END 2023-04-09 22:28 | disposition home or self-care (01) ==
PROVIDERS: Emergency Provider Nurse Practitioner Acute Care; PCP Student in an Organized Health Care Education/Training Program
DX: R07.9 Chest pain, unspecified (principal); R11.0 Nausea; I10 Essential (primary) hypertension; F17.290 Nicotine dependence, other tobacco product, uncomplicated; Z79.899 Other long term (current) drug therapy
CPT/HCPCS: 71275; 80053; 80307; 93005; 96365; 96375; 99285; 80320; 83735; 83880; 84484; 85025; 85379; 93010; 99284; J0131; J1885; J3490

== ENCOUNTER → 2023-04-29 09:18 | Outpatient (BNVA) | payer MEDICARE, SELFPAY | PROVIDERS: PCP Student in an Organized Health Care Education/Training Program; Referring Provider Student in an Organized Health Care Education/Training Program; Visit Provider Student in an Organized Health Care Education/Training Program | DX: M76.31 Iliotibial band syndrome, right leg (principal); M70.61 Trochanteric bursitis, right hip | CPT/HCPCS: 99213 ==

== ENCOUNTER 2023-05-07 19:56 | Emergency (ER) | payer MEDICARE, SELFPAY ==
[2023-05-07 20:00] VITALS: BP 150/104; PULSE 91; RESP 18; TEMP 36.6; O2SAT 96
--- NOTE | 2023-05-07 20:16 | W.ED.GENAD ---
Discharge Plan Disposition Patient Disposition: Home Condition: Stable Discharge Details Clinical Impression: Dog bite of right hand Primary Care Provider: Christine Dey ED Provider: Gt Andrea Home Meds and New Rx's Prescriptions: New amoxicillin-pot clavulanate 875-125 mg tablet 1 tab PO BID 10 Days Qty: 20 0RF Continued ibuprofen 800 mg tablet 800 mg PO TID omeprazole 20 mg capsule,delayed release(DR/EC) 20 mg PO BID Qty: 60 1RF oxycodone-acetaminophen 5-325 mg tablet 2 tab PO TID Patient Comments: per Marissa, pt has been getting this rx from Christoph Thompson out of [facility], [address] each time, 1-2 tabs 3x/day not to exceed 5 tabs. Rx Instructions: Recommending 2 tabs TID x next 10 days! IK, 10/25/[address] KAUR fluticasone propionate 50 mcg/actuation spray,suspension 2 spray intranasal QHS Qty: 16 2RF Rx Instructions: administer into each nostril for congestion, nightly gabapentin 800 mg tablet See Rx Instructions PO TID PRN Patient Comments: taking 1/2 tab BID Rx Instructions: 800mg qHD, 400mg AM, 400mg 2-3PM (DME) Orthopedic Shoes See Rx Instructions .Route .MEDSUPPLY Qty: 1 0RF Rx Instructions: For neuropathic pain diazepam 10 mg tablet See Rx Instructions PO .COMPLEX MDD 30mg PRN (Reason: muscle spasm/relaxation; sleep) Qty: 7 0RF Rx Instructions: 20mg qHS, with added 10mg daily post surgery orally x 1 week PRN; Short-term increase post neuro-surgery, ik. naloxone [Narcan] 4 mg/actuation spray,non-aerosol 4 mg CARLA Q2M PRN (Reason: opioid overdose) Qty: 2 1RF Rx Instructions: spray 1 dose into ONE nostril; alternate nostrils w each dose until help arrives Multiple Vitamin-Minerals Tablet 1 tab PO DAILY Qty: 90 1RF atorvastatin 40 mg tablet 40 mg PO DAILY Qty: 90 3RF metoprolol succinate 50 mg tablet extended release 24 hr 50 mg PO DAILY Qty: 90 0RF Rx Instructions: Trial increased dose, monitor closely Discharge Instructions Instructions: Amoxicillin/Clavulanate Potassium (By mouth), Animal Bite (ED) Additional Instructions: You were seen in the emergency department for the dog bite of your right hand. We had to soak this in sterile saline and dilute Betadine. We are providing you with Steri-Strips for repair, if your hands become sweaty and your Steri-Strips on attached please reattach them in the fashion you observed in the ED this evening. We started you on Augmentin, the rest of your prescription was sent to [facility] in [place]. We placed you in a popsicle stick splint by taping a popsicle stick to your finger, keep your finger still in in the splint for the first 48 to 72 hours after that you may remove. Keep the area clean and dry, return for any red streaking up the arm, purulent drainage, severe increase in pain, fever. Referrals: Christine Dey DO [Primary Care Provider] - Medical Decision Making This dictation utilizes [id number] dictation software and may contain unedited grammatical errors. 62 y/o M presents to ED today with a chief complaint of dog bite to R-hand, his dog just had back surgery, he was attempting to change the dogs diaper which caused pain, shots UTD on dog, Tdap UTD on patient. Onset and characteristics include within 2 hours, no deficits reported. Patients' history noncontributory. Family and social history: noncontributory. Pertinent exam findings / vital signs include 2cm linear superficial laceration along palmar DIP of R 2nd finger, no tendon visualized, NV grossly intact. Differential / pathologies of concern include dog bite, tendon injury unlikely. Diagnostic studies of: -none. Interventions of: -dilute betadine soak, steri-strips for repair, initiation of Augmentin here in ED with Rx sent. ED Course: no acute events during ED stay. Findings not consistent with cellulitis, tendon involvement. Disposition of Dog Bite of Right Hand. Assessment/Plan: Counseled the patient on general wound care for his dog bite as the palmar aspect tends to sweat and sometimes Steri-Strips can become soiled and unattached. Patient was comfortable with changing these at home if he needed to and I counseled him on the need to start antibiotics with strict return criteria for any signs of worsening infection. Take Tylenol and ibuprofen for pain as needed, patient given simple popsicle stick splint for first 48-72 hours to aid in healing. Patient verbalized understanding of the plan and return to ED criteria and engaged in shared decision making. Medical Records Medical records reviewed: Yes I reviewed the patient's medical records. HPI General Date/Time Provider Initiated Documentation: 05/07/23 20:01. HPI Narrative: 62 year-old male presents to ED today by POV/ambulating with a chief complaint of dog bite(s) from his own dog- very minor to L hand, significant 2cm laceration to R index finger, R-hand dominant with onset just prior to arrival. Quality described as stinging, no radiation to active bleeding, numbness, inability to ROM finger, FB sensation. Severity is described as 4-6/10. Palliating factors include wrapped in clean washcloth, no active bleeding. Provoking factors include his dog had just had back surgery, and he was changing the dogs diaper which caused the dog pain and he nipped. Events leading up to the incident/Associated Symptoms: Patient states his Tdap is UTD. Patient not anticoagulated. Related Data Home Medications Medication Instructions Recorded Confirmed multivitamin with minerals 1 tab PO DAILY #90 tabs 03/06/22 04/29/23 (Multiple Vitamin-Minerals tablet) atorvastatin 40 mg tablet 40 mg PO DAILY #90 tabs 09/05/22 04/29/23 omeprazole 20 mg capsule,delayed 20 mg PO BID #60 caps 10/25/22 04/29/23 release Orthopedic Shoes #1 ea 11/22/22 04/29/23 fluticasone propionate 50 2 spray intranasal QHS congestion 11/22/22 04/29/23 mcg/actuation nasal #16 grams spray,suspension gabapentin 800 mg tablet See Rx Instructions PO TID PRN 11/22/22 04/29/23 oxycodone-acetaminophen 5 mg-325 2 tab PO TID 11/22/22 04/29/23 mg tablet ibuprofen 800 mg tablet 800 mg PO TID 02/21/23 04/29/23 diazepam 10 mg tablet See Rx Instructions PO .COMPLEX 03/10/23 04/29/23 PRN muscle spasm/relaxation; sleep #7 tabs naloxone 4 mg/actuation nasal 4 mg intranasal Q2M PRN opioid 03/10/23 04/29/23 spray (Narcan) overdose #2 ea metoprolol succinate 50 mg 50 mg PO DAILY #90 tabs 04/28/23 04/29/23 tablet,extended release 24 hr amoxicillin 875 mg-potassium 1 tab PO BID dog bite 10 days #20 05/07/23 clavulanate 125 mg tablet tabs Previous Rx's Medication Instructions Recorded multivitamin with minerals 1 tab PO DAILY #90 tabs 03/06/22 (Multiple Vitamin-Minerals tablet) atorvastatin 40 mg tablet 40 mg PO DAILY #90 tabs 09/05/22 omeprazole 20 mg capsule,delayed 20 mg PO BID #60 caps 10/25/22 release Orthopedic Shoes #1 ea 11/22/22 fluticasone propionate 50 2 spray intranasal QHS congestion 11/22/22 mcg/actuation nasal #16 grams spray,suspension diazepam 10 mg tablet See Rx Instructions PO .COMPLEX 03/10/23 PRN muscle spasm/relaxation; sleep #7 tabs naloxone 4 mg/actuation nasal 4 mg intranasal Q2M PRN opioid 03/10/23 spray (Narcan) overdose #2 ea metoprolol succinate 50 mg 50 mg PO DAILY #90 tabs 04/28/23 tablet,extended release 24 hr amoxicillin 875 mg-potassium 1 tab PO BID dog bite 10 days #20 05/07/23 clavulanate 125 mg tablet tabs Allergies Allergy/AdvReac Type Severity Reaction Status Date / Time No Known Allergies Allergy Verified 04/29/23 09:21 General Stated Complaint: Laceration ROSMERY: 4 PFSH All Active Problems (Updated 05/07/23 @ 20:24 by SHAKIR Lambert) Dog bite of right hand (Acute) Musculoskeletal chest pain (Acute) History of anemia (Acute) Part 02/19/2022 labs, improved since then her December 2022 hemoglobin.. [] Recheck Malnutrition compromising bodily function (Acute) eating less, post surgery and 2' fatigue, depression (?) Back pain with risk for osteoporosis (Acute) At high risk for osteoporosis (Acute) Back stiffness (Acute) Cervical spine degeneration (Acute) per 01/2021 MRI .. is newleft hand tremor/shake assoc?? Weakness of left arm (Acute) weakness, shaking vs tremor? vs mm spasm? Tremor of left hand (Acute) Back pain with history of spinal surgery (Acute ~01/23/23) Laminectomy, Facetectomy & Foraminotomy, Lumbar, One level, Alexandru (WRVU 15.37). [place] Lumbar stenosis (Acute) 12/03/22 [facility] Neurology note Difficulty sleeping (Acute) 2' pain as well as Hx nightmares ( PTSD) Hyperlipidemia (Acute) Severe back pain (Acute) Long Hx lumbar, and post [id number], but moving up into thoracic spine .. Chronic back pain (Chronic) Dr. Thompson (PCP in [place]) prescribes chronic pain medications for this pt Hx of spinal surgery (Acute) Back injury (Acute) Long-standing deterioration post injuries [] and multiple surgeries Stress due to illness of family member (Acute) Stressful life events affecting family and household (Acute) House; In-laws; Multiple UTIs; Chr Pain.. 06/2022 Essential hypertension (Chronic) Hx HTN, low recently .. STOPPED HCTZ 01/2019 .. Lowered BB, stay @ 25mg Hypotension (Acute 09/2018) New issue .. decreasing BB . Stay at 25mg 02/10/19 Lung nodule, multiple (Chronic) Stable per 08/[address] CT. 04/02/[address] [facility] [address]: recommend 3-6 month f/u. Elevated glucose (Acute) adding a1c Medical History (Updated 05/07/23 @ 20:24 by SHAKIR Lambert) History of gallbladder disease s/p cholecystectomy, 1979's? .. 1st lap [place] in [place]! Iliotibial band syndrome of right side Post release, Pretty, 09/2022 Cellulitis of right thigh Trochanteric bursitis, left hip SARS-CoV-2 positive (~12/18/21) again 04/12/22 Discontinued smoking PTSD (post-traumatic stress disorder) Anesthesia Per pt. states in the past he has woken up violently, states at night he takes valium to shut his brain off and that works well for him. Pt. states it is related to PTSD from . Left foot pain Distal phalanges (?) #2, #3 ... and/or transverse arch pathology. 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 Ana Garvey MD [facility] Trochanteric bursitis, right hip Injected: 01/15/2019, 10/22/2021 Diarrhea (03/28/15) Superficial dehiscence of wound Mostly irritating, draining, but significant drainage @ distal section of surg site warranting wound evaluation. Stopped triple-antibiotic in case of aggrav; trial silvadene/gauze. Surgical History (Updated 11/22/22 @ 16:25 by Christine Dey DO) Status post hip surgery IlioTib Band RELEASE, September 2022 (Pretty).. Hips replaced, L, R years earlier.. Cubital tunnel syndrome on left S/P ECTR: 07/09/2021 Left carpal tunnel syndrome S/P release: 07/09/2021 Status post total hip replacement, left (01/04/20) Treatment for avascular necrosis of the left hip. History of total replacement of right hip (~04/2018) [facility] History of right hip replacement back surgery (11/08/09) back surgery (11/17/07) back surgery (11/05/05) back fusion (11/09/12) Trigger Finger release (10/11/16) RIGHT RING FINGER/DR. POWELL Cholecystectomy (~1979) Family History Mother , AD at age 84. Diabetes Heart failure Dementia Father No problems noted. Sister Diabetes Sister , Hypothermia at age 43. No problems noted. Brother Mental disorder Brother No problems noted. Social History Smoking/Tobacco Use Status: Current every day Tobacco Type: cigars Per week: 14 Tobacco: How many years used: 40 Smoking risk assessment performed?: Yes Alcohol Intake: current Alcohol Intake frequency: a few times a week Alcohol type: beer Drug use: Occasionally Substance use type: marijuana Adopted: No Foster care: No Pets and animals: Yes Pets and animals: cat(s), dog(s) and turtle(s) Current gender identity: male Duration: > 90 minutes/day Seatbelt use: always Helmet use: No Water heater temp set <120 deg: Yes Working smoke detector in home: Yes Fire extinguisher in home: Yes Carbon monox detector in home: Yes Firearms in home: Yes Firearms unloaded and locked: Yes Do you feel safe at home: Yes Do you feel safe in your relationship?: Yes Victim of physical abuse: No Victim of emotional abuse: No Victim of sexual abuse: No Exam Narrative Exam Narrative: GENERAL APPEARANCE: Well-nourished, non-toxic, awake and alert, atraumatic, no acute distress. SKIN: Warm, pink, dry, 2cm linear superficial laceration across the palmar DIP area of R index finger- no tendon visualized, no sensory/ROM deficits, not grossly contaminated, strength 5/5 in R index finger, minor superficial punctures not bleeding or completely through epidermis to L hand HEAD: Normocephalic, atraumatic, normal hair distribution for gender/age. EYES: Pupils PERRLA, EOMs intact without nystagmus, normal conjunctiva, no exudates on lids/lashes. ENT: Nares patent, no circumoral cyanosis, no facial swelling NECK: Supple, trachea midline, painless cervical ROM. LUNGS/CHEST: Non-labored respirations, normal A/P diameter, symmetrical expansion, no chest wall deformity HEART (CV/PV): Regular rate, R radial pulse 2+, no peripheral edema, no JVD. ABDOMEN: Soft, non-distended, no guarding. MSK: Normal ROM, no swelling/deformity to bilateral UEs or LEs, moving all extremities without weakness, no cyanosis, spine midline without tenderness, normal curvature. NEURO: Mental Status AAOx4 - alert to person, place, time, events No facial droop, no forehead involvement. Motor: No focal weakness - strength 5/5 in bilateral UEs and LEs, proximal and distal, symmetric. Sensory: sensation intact to light touch globally. Gait normal: patient ambulated without ataxia into ED room. PSYCH: euthymic, cooperative, pleasant, appropriate speech Course Vital Signs Vital signs: Vital Signs Temperature 36.6 C 05/07/23 20:00 Pulse 91 H 05/07/23 20:00 Respiratory Rate 18 05/07/23 20:00 Blood Pressure 150/104 H 05/07/23 20:00 Pulse Oximetry 96 05/07/23 20:00 Temperature 36.6 C 05/07/23 20:00 Temperature Source Temporal Artery Scan 05/07/23 20:00 Pulse 91 H 05/07/23 20:00 Respiratory Rate 18 05/07/23 20:00 Respiratory Effort Normal 05/07/23 20:05 Blood Pressure 150/104 H 05/07/23 20:00 Blood Pressure Position Sitting 05/07/23 20:00 Pulse Oximetry 96 05/07/23 20:00 Oxygen Delivery Method Room Air 05/07/23 20:00 Oxygen Flow Rate 0 05/07/23 20:00 Pain Level 0 05/07/23 20:00 PAWSS Have you Been Recently Intoxicated or Drunk Within the Last 30 days?: No Have you Ever Experienced Previous Episodes of Alcohol Withdrawal?: No Have you ever Experienced Withdrawal Seizures?: No Have you ever Experienced Delirium Tremens(DT)s?: No Have you ever undergone Alcohol Rehabilitation Treatment (i.e, inpt ot outpatient treatment programs)?: No Have you ever Experienced Blackouts?: No Have you ever Combined Alcohol with other Downers within the last 90 days?: No Have you ever Combined Alcohol with any other Substance of Abuse during the last 90 days?: No Positive Blood Alcohol level on Presentation? [PCS.BAL]: No Evidence of Increased Autonomic Activity (i.e. HR>120, tremor, sweating, agitation, nausea)?: No Result: 0
[2023-05-07] MEDS: Amoxicillin 875/Clav. 125 TAB PO (20:22)
--- NOTE | 2023-05-07 20:22 | NUR.NOTE ---
PT finger soaked in betadine diluted in NS per provider request Nursing Note:
--- NOTE | 2023-05-07 20:31 | NUR.NOTE ---
Dog bit forms filled and sent to health officer. Fax forms and phone call made to f/u in the AM.
--- NOTE | 2023-05-08 13:35 | NUR.NOTE ---
Animal bite report form faxed to [facility] office/dispatch for Rafita Gibbs, health officer. Message left for Rafita Gibbs of the report. Nursing Note:
== END 2023-05-07 20:48 | disposition home or self-care (01) ==
PROVIDERS: Emergency Provider Physician Assistant; PCP Student in an Organized Health Care Education/Training Program
DX: S61.250A Open bite of right index finger without damage to nail, initial encounter (principal); I10 Essential (primary) hypertension; F17.210 Nicotine dependence, cigarettes, uncomplicated; W54.0XXA Bitten by dog, initial encounter; Y93.K9 Activity, other involving animal care; Y92.018 Other place in single-family (private) house as the place of occurrence of the external cause
CPT/HCPCS: 99283

== ENCOUNTER 2023-05-22 04:39 | Outpatient (CLI) | payer MEDICARE, SELFPAY ==
[2023-05-22 11:27] LABS: HGB 14.7 g/dL (13.5-17.5)
[2023-05-22 11:49] LABS: Hemoglobin A1C 5.4 % (<5.7)
[2023-05-22 12:31] LABS: Anion Gap 8.6 mmol/L (3-11); BUN 13 mg/dL (7-18); CO2 23.4 mmol/L (21.0-32.0); CREATININE 1.1 mg/dL (0.70-1.30); Calcium 9.4 mg/dL (8.5-10.1); Chloride 104 mmol/L (98-107); Estimated GFR 76.37 (mL/min/1.73m2); Glucose 130 mg/dL (74-106); Potassium 4.2 mmol/L (3.5-5.1); Sodium 136 mmol/L (136-145)
[2023-05-22 12:57] LABS: Vitamin D 25 Total 38.9 ng/mL (30-100)
== END 2023-05-22 04:40 | disposition home or self-care (01) ==
LOC: LBO 04:39
PROVIDERS: Absent Provider Student in an Organized Health Care Education/Training Program; PCP Student in an Organized Health Care Education/Training Program; Visit Provider Student in an Organized Health Care Education/Training Program
DX: E46 Unspecified protein-calorie malnutrition (principal); G47.9 Sleep disorder, unspecified; M47.812 Spondylosis without myelopathy or radiculopathy, cervical region; Z91.89 Other specified personal risk factors, not elsewhere classified; Z86.2 Personal history of diseases of the blood and blood-forming organs and certain disorders involving the immune mechanism; R73.09 Other abnormal glucose; I10 Essential (primary) hypertension
CPT/HCPCS: 36415; 80048; 82306; 83036; 85018

== ENCOUNTER → 2023-06-23 09:28 | Outpatient (BNVA) | payer MEDICARE, SELFPAY | PROVIDERS: PCP Student in an Organized Health Care Education/Training Program; Referring Provider Student in an Organized Health Care Education/Training Program; Visit Provider Surgery | DX: R93.3 Abnormal findings on diagnostic imaging of other parts of digestive tract (principal) | CPT/HCPCS: 99214 ==

== ENCOUNTER 2023-06-25 07:28 | Day surgery (SDC) | payer MEDICARE, SELFPAY ==
[2023-06-25 07:56] VITALS: BP 139/94; PULSE 73; RESP 15; TEMP 37; O2SAT 98
[2023-06-25] MEDS: Lactated Ringers 1,000 ML 80 ML IV (08:15)
[2023-06-25 08:43] VITALS: BMI 31.6
--- NOTE | 2023-06-25 08:43 | ANES.PREOP_ITS ---
General Info Date of Service Date Performed: 06/25/23 Height: 5 ft 6 in Weight: 88.9 kg Body Mass Index (BMI): 31.6 Surgical Procedure: Operation Date: 06/25/23 08:35 Proposed Procedure Side Surgeon p Gastroscopy & Biopsies Ty Menjivar MD Meds Allergies and Home Medications Allergies Allergy/AdvReac Type Severity Reaction Status Date / Time No Known Allergies Allergy Verified 06/25/23 07:50 Home Medication Medication Instructions Recorded multivitamin with minerals 1 tab PO DAILY #90 tabs 03/06/22 (Multiple Vitamin-Minerals tablet) atorvastatin 40 mg tablet 40 mg PO DAILY #90 tabs 09/05/22 Orthopedic Shoes #1 ea 11/22/22 fluticasone propionate 50 2 spray intranasal QHS congestion 11/22/22 mcg/actuation nasal #16 grams spray,suspension gabapentin 800 mg tablet See Rx Instructions PO TID PRN 11/22/22 oxycodone-acetaminophen 5 mg-325 2 tab PO TID 11/22/22 mg tablet ibuprofen 800 mg tablet 800 mg PO TID 02/21/23 diazepam 10 mg tablet See Rx Instructions PO .COMPLEX 03/10/23 PRN muscle spasm/relaxation; sleep #7 tabs naloxone 4 mg/actuation nasal 4 mg intranasal Q2M PRN opioid 03/10/23 spray (Narcan) overdose #2 ea metoprolol succinate 50 mg 50 mg PO DAILY #90 tabs 04/28/23 tablet,extended release 24 hr omeprazole 20 mg capsule,delayed 20 mg PO BID #180 caps 05/11/23 release celecoxib 100 mg capsule (Celebrex) 100 mg PO BID 06/23/23 albuterol sulfate 90 mcg/actuation inhalation 06/25/23 aerosol inhaler Current Visit Medications: Current Medications Generic Name Dose Route Start Last Admin Trade Name Freq PRN Reason Stop Dose Admin Ringer's Solution 1,000 mls @ 80 mls/hr 06/25/23 06:00 06/25/23 08:15 IV 06/25/23 23:59 80 mls/hr INFUSION ANITA Administration IV Miscellaneous Supplies 1 each 06/25/23 06:00 Iv Access IV 06/25/23 23:59 DIRECTED ANITA Sodium Chloride 0 ml 06/25/23 06:00 Normal Saline Flush 10 Ml Syr IV 06/25/23 23:59 PRN PRN Sodium Chloride 0 ml 06/25/23 06:00 Normal Saline 10 Ml Vial IJ 06/25/23 23:59 DIRECTED PRN Sterile Water 0 ml 06/25/23 06:00 Water,Injection,Sterile 10 Ml Vial IJ 06/25/23 23:59 DIRECTED PRN PFSH Active Problems Active Problems: Problem Status Onset Code Abnormal CT scan, esophagus R93.3 Adjustment disorder, unspecified F43.20 History of anemia Z86.2 Malnutrition compromising bodily function E46 Back pain with risk for osteoporosis M54.9, Z91.89 At high risk for osteoporosis Z91.89 Back stiffness M25.69 Cervical spine degeneration M47.812 Weakness of left arm R29.898 Tremor of left hand R25.1 Back pain with history of spinal surgery ~01/23/23 M54.9, Z98.890 Lumbar stenosis M48.061 Difficulty sleeping G47.9 Hyperlipidemia E78.5 Chronic back pain M54.9, G89.29 Stress due to illness of family member Z63.79 Stressful life events affecting family and household Z63.79 Essential hypertension I10 Hypotension 09/2018 I95.9 Hip pain, right 09/24/17 M25.551 Lung nodule, multiple R91.8 Elevated glucose R73.09 Medical History Medical History Severe back pain eli eimprovement post UVNN surgery, Fall 2022..Long Hx lumbar, and post [id number], but moving up into thoracic spine .. History of gallbladder disease s/p cholecystectomy, ? .. 1st [place] in [place]! Iliotibial band syndrome of right side Post release, Pretty, 09/2022 Cellulitis of right thigh Trochanteric bursitis, left hip SARS-CoV-2 positive (~12/18/21) again 04/12/22 Discontinued smoking PTSD (post-traumatic stress disorder) Anesthesia Per pt. states in the past he has woken up violently, states at night he takes valium to shut his brain off and that works well for him. Pt. states it is related to PTSD from . Left foot pain Distal phalanges (?) #2, #3 ... and/or transverse arch pathology. 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 Ana Garvey MD [facility] [place] Trochanteric bursitis, right hip Injected: 01/15/2019, 10/22/2021 Diarrhea (03/28/15) Superficial dehiscence of wound Mostly irritating, draining, but significant drainage @ distal section of surg site warranting wound evaluation. Stopped triple-antibiotic in case of aggrav; trial silvadene/gauze. Medical History Comments:: Per pt. states in the past he has woken up violently, states at night he takes valium to shut his brain off and that works well for him. Pt. states it is related to PTSD from . Call out to [facility], do not touch. R hip and R buttocks pain Surgical History Surgical History Hx of spinal surgery Status post hip surgery IlioTib Band RELEASE, September 2022 (Pretty).. Hips replaced, L, R years earlier.. Cubital tunnel syndrome on left S/P ECTR: 07/09/2021 Left carpal tunnel syndrome S/P release: 07/09/2021 Status post total hip replacement, left (01/04/20) Treatment for avascular necrosis of the left hip. History of total replacement of right hip (~04/2018) [facility] [place] History of right hip replacement back surgery (11/08/09) back surgery (11/17/07) back surgery (11/05/05) back fusion (11/09/12) Trigger Finger release (10/11/16) RIGHT RING FINGER/DR. POWELL Cholecystectomy (~1979) Tobacco Smoking/Tobacco Use Status: Current every day Tobacco Type: cigars Per week: 14 Alcohol Alcohol Intake: current Alcohol intake frequency: a few times a week Alcohol type: beer Substance Use Substance use: Daily Substance use type: marijuana Details: alcohol: t-3, marijuana: t-1, smoking/edibles Vital Signs and Lab Results Vital Signs Most Recent Vital Signs in EMR: Most Recent Vital Signs Temp Pulse Resp BP Pulse Ox 37.0 C 73 15 139/94 H 98 06/25/23 07:56 06/25/23 07:56 06/25/23 07:56 06/25/23 07:56 06/25/23 07:56 Lab Results Blood Type / Crossmatch: No Data to Display Complete Blood Count: No Data to Display Complete Metabolic Panel: No Data to Display Liver Function Panel: No Data to Display Coagulation Panel: No Data to Display Cardiac Panel: No Data to Display Arterial Blood Gas: No Data to Display Venous Blood Gas: No Data to Display Pancreas Panel: No Data to Display Thyroid Panel: No Data to Display Infectious Disease: No Data to Display Blood Cultures: No Data to Display Toxicology Panel: No Data to Display Anesthesia Assessment and Plan Anesthesia History Personal History: Other Family History: No Family History of Anesthesia Complications Exercise Tolerance Exercise Tolerance: Metabolic Equivalents>4 Cardiac & Pulmonary Exam Cardiac Exam: Normal S1/S2 Heart Sounds Pulmonary Exam: Clear Bilateral Breath Sounds Implantable Cardiac Device Does patient have a Pacemaker or an ICD?: No Airway Exam Known Difficult Airway: No Mallampati Class: 3 Mouth Opening: Narrow (< 3cm) Thyromental Distance: Less than 3 cm Neck Range of Motion: Full ROM Neck Circumference: Normal Teeth Condition: Generalized Poor Dentition (Denies any loose teeth. ) ASA Classification ASA Score: ASA 2 Emergency Case?: No NPO Status NPO Status: NPO Clears >2 hours, Solids >8 hours Anesthesia Plan Resuscitation Status: Full Code Anesthesia Technique: General Anesthesia Airway Planned: Natural Airway Monitors Used: Standard Monitors
--- NOTE | 2023-06-25 09:51 | STOM_PTH ---
PATIENT: Subhash Olivares LOC: [facility] U#:[id number] AGE/SX: 63/M ROOM: RE06/25/[address]: Ty Menjivar : 1960 BED: DIS: 06/25/2023 SPEC #: [id number]: RECD: 06/25/23 12:53 STATUS: YURIDIA RE #: [id number] NASREEN: 06/25/23 09:[address]: Ty Menjivar DEPT: Surgical Specimen RECD BY: Scarlett Peterson ENTERED: 06/25/23 12:56 SP TYPE: STOMACH OTHR DR: Christine Dey DO Tissues: 1 - STOMACH BIOPSY 2 - STOMACH BIOPSY 3 - STOMACH BIOPSY 4 - ESOPHAGUS BIOPSY 5 - ESOPHAGUS BIOPSY Procedures: GROSS AND MICRO LEVEL 4 Comments: [id number]
[2023-06-25 10:12] VITALS: BP 130/98; PULSE 69; RESP 16; TEMP 36.5; O2SAT 98
--- NOTE | 2023-06-25 10:19 | W.ANESPOSTOP ---
Postoperative Evaluation Date, Time and Location Date Performed: 06/25/23 Time Performed: 10:19 Patient Location: Day Surgery Unit Vital Signs Most Recent Imported Vital Signs: Most Recent Vital Signs Temp Pulse Resp BP Pulse Ox 37.0 C 73 15 139/94 H 98 06/25/23 07:56 06/25/23 07:56 06/25/23 07:56 06/25/23 07:56 06/25/23 07:56 Pain Score Most Recent Pain Score: Most Recent Pain Score Pain Level 5 06/25/23 07:56 Assessment Mental Status: Awake (Alert & Oriented to Patient Baseline) Airway and Respiratory Function: Patent airway with normal (patient baseline) respiratory exam Cardiovascular Function: Hemodynamically Stable Hydration Status: Adequately Hydrated Nausea & Vomiting: No Nausea or Vomiting Pain: Pt. Denies Any Pain Peripheral Nerve Block: Patient did not receive a nerve block
[2023-06-25 10:36] VITALS: BP 143/93; PULSE 60; RESP 15; TEMP 36.3; O2SAT 98
--- NOTE | 2023-06-25 10:43 | W.PM.ENDDOP ---
Date of service: 06/25/23 Time of Service: 09:40 Endoscopy Report PROCEDURE DESCRIPTION: PROCEDURES PERFORMED: 1. EGD with biopsies PREOPERATIVE DIAGNOSIS: Esophagus thickening POSTOPERATIVE DIAGNOSIS: Normal foregut SURGEON: Vanessa Menjivar MD INDICATION for procedure: 63-year-old man who had some chest discomfort and a CT scan that showed unusual thickening in the esophagus and an EGD was recommended. FINDINGS: D2/D3 = normal D1/bulb = normal Pylorus = normal Antrum = normal, cold forceps biopsies were taken to rule out H. pylori routinely Body = a couple of scant, subcentimeter areas of irritation seen and biopsied with cold forceps technique Fundus = normal, no polyps Cardia = scant areas of irritation noted here as well and biopsied with cold forceps technique. Hiatus = no hiatal hernia Distal esophagus = no inflammation, no esophagitis, no Keating's, no stricture. Cold forceps biopsies were taken routinely, despite it appearing normal, because of the CT scan findings. Mid esophagus = normal Proximal esophagus/hypopharynx/vocal cords = normal SURVEILLANCE-INTERVAL/FOLLOW-UP: Follow-up with PCP, no surveillance necessary Specimens: Yes EBL: Minimal COMPLICATIONS: None Procedure in detail: The patient gave written consent and was in agreement with the indications, the potential risks as well as the benefits of the procedure. The patient was taken to the endoscopy suite and laid on their left side. Anesthesia was given which was tolerated well. We performed a timeout and we are in agreement I started the procedure. A well?lubricated endoscope was gently and carefully advanced down the esophagus, into the stomach the scope was and through the pylorus into the duodenum. The scope was then slowly withdrawn with the above-noted findings/interventions. The patient tolerated the procedure well and was taken to the PACU in hemodynamically stable condition.
--- NOTE | 2023-06-25 10:48 | PDOC.DSDIS_ITS ---
Date of service: 06/25/23 Time of Service: 10:48 Discharge Plan Disposition Patient Disposition: Home Condition: Good Discharge Details Attending Provider: Ty Menjivar Primary Care Provider: Christine Dey Home Meds and New Rx's Prescriptions: No Action ibuprofen 800 mg tablet 800 mg PO TID oxycodone-acetaminophen 5-325 mg tablet 2 tab PO TID Patient Comments: per Marissa, pt has been getting this rx from [facility] out of [facility], [address] each time, 1-2 tabs 3x/day not to exceed 5 tabs. Rx Instructions: Recommending 2 tabs TID x next 10 days! IK, 10/25/[address] KAUR fluticasone propionate 50 mcg/actuation spray,suspension 2 spray intranasal QHS Qty: 16 2RF Rx Instructions: administer into each nostril for congestion, nightly gabapentin 800 mg tablet See Rx Instructions PO TID PRN Patient Comments: taking 1/2 tab BID Rx Instructions: 800mg qHD, 400mg AM, 400mg 2-3PM (DME) Orthopedic Shoes See Rx Instructions .Route .MEDSUPPLY Qty: 1 0RF Rx Instructions: For neuropathic pain diazepam 10 mg tablet See Rx Instructions PO .COMPLEX MDD 30mg PRN (Reason: muscle spasm/relaxation; sleep) Qty: 7 0RF Rx Instructions: 20mg qHS, with added 10mg daily post surgery orally x 1 week PRN; Short-term increase post neuro-surgery, ik. naloxone [Narcan] 4 mg/actuation spray,non-aerosol 4 mg CARLA Q2M PRN (Reason: opioid overdose) Qty: 2 1RF Rx Instructions: spray 1 dose into ONE nostril; alternate nostrils w each dose until help arrives celecoxib [Celebrex] 100 mg capsule 100 mg PO BID Multiple Vitamin-Minerals Tablet 1 tab PO DAILY Qty: 90 1RF atorvastatin 40 mg tablet 40 mg PO DAILY Qty: 90 3RF metoprolol succinate 50 mg tablet extended release 24 hr 50 mg PO DAILY Qty: 90 0RF Rx Instructions: Trial increased dose, monitor closely omeprazole 20 mg capsule,delayed release(DR/EC) 20 mg PO BID Qty: 180 3RF albuterol sulfate 90 mcg/actuation HFA aerosol inhaler INHALATION Discharge Instructions Additional Instructions: FINDINGS: Everything looked normal. Nothing bad was found. I did not see any inflammation or polyps or tumors. I took a couple of routine biopsies of some small areas of irritation but these are probably meaningless. You will get called with those biopsy results in a couple of weeks. Overall, nothing to worry about. Activity:: Activity as Tolerated Diet:: As Tolerated
== END 2023-06-25 11:04 | disposition home or self-care (01) ==
PROVIDERS: PCP Student in an Organized Health Care Education/Training Program; Visit Provider Student in an Organized Health Care Education/Training Program
PROC: 0DJ68ZZ Inspection of Stomach, Via Natural or Artificial Opening Endoscopic (ICD-10-PCS; CPT 43235; principal; 2023-06-25 08:30)
DX: R93.3 Abnormal findings on diagnostic imaging of other parts of digestive tract (principal); K29.70 Gastritis, unspecified, without bleeding; K31.89 Other diseases of stomach and duodenum; K22.89 Other specified disease of esophagus
CPT/HCPCS: 43239; 00123; 88305; J2001; J2250

== ENCOUNTER 2024-01-30 01:44 | Outpatient (CLI) | payer MEDICARE, SELFPAY ==
[2024-01-30 07:18] LABS: Abs Immature Grans 0.01 10^3/uL (0.0-0.06); Absolute Basophil Count 0.06 10^3/uL (0.0-0.2); Absolute Eosinophil Count 0.18 10^3/uL (0.0-0.7); Absolute Lymphocyte Count 1.61 10^3/uL (1.2-3.4); Absolute Monocyte Count 0.54 10^3/uL (0.1-0.8); Absolute Neutrophil Count 4.16 10^3/uL (1.2-6.7); Basophils % 0.9 %; Eosinophils % 2.7 %; HCT 44.3 % (40.0-50.0); HGB 15.2 g/dL (13.5-17.5); Immature Grans % 0.2 %; Lymphocytes % 24.5 %; MCH 31.6 pg (27.0-33.0); MCHC 34.3 % (32.0-36.0); MCV 92 fL (80-95); MPV 8.5 fL (8.0-11.0); Monocytes % 8.2 %; Neutrophils % 63.5 %; Platelet Count 187 10^3/uL (130-400); RBC 4.81 10^6/uL (4.36-5.78); RDW 11.9 % (11.8-14.1); RDW-SD 40.2 fL; WBC 6.56 10^3/uL (4.4-10.8)
[2024-01-30 08:08] LABS: ALT 33 U/L (16-63); AST 26 U/L (15-37); Albumin 4.7 g/dL (3.4-5.0); Alkaline Phosphatase 53 U/L (46-116); Anion Gap 7.2 mmol/L (3-11); BUN 15 mg/dL (7-18); Bilirubin, Total 0.59 mg/dL (0.2-1.0); CO2 29.8 mmol/L (21.0-32.0); CREATININE 1.1 mg/dL (0.70-1.30); Calcium 9.5 mg/dL (8.5-10.1); Calculated LDL 62 mg/dL (<100); Chloride 103 mmol/L (98-107); Cholesterol 138 mg/dL (<200); Estimated GFR 76.37 (mL/min/1.73m2); Glucose 111 mg/dL (74-106); HDL Cholesterol 54 mg/dL (40-60); Potassium 4.6 mmol/L (3.5-5.1); Sodium 140 mmol/L (136-145); Total Protein 7.9 g/dL (6.4-8.2); Triglyceride 111 mg/dL (<150)
[2024-02-04 00:03] LABS: Lab Add On Test DONE
== END 2024-01-30 01:45 | disposition home or self-care (01) ==
PROVIDERS: PCP Student in an Organized Health Care Education/Training Program; Visit Provider Student in an Organized Health Care Education/Training Program
DX: Z91.89 Other specified personal risk factors, not elsewhere classified (principal); M25.69 Stiffness of other specified joint, not elsewhere classified; M54.9 Dorsalgia, unspecified; Z98.890 Other specified postprocedural states; Z79.1 Long term (current) use of non-steroidal anti-inflammatories (NSAID); K90.9 Intestinal malabsorption, unspecified; R73.09 Other abnormal glucose; Z86.2 Personal history of diseases of the blood and blood-forming organs and certain disorders involving the immune mechanism
CPT/HCPCS: 36415; 80053; 80061; 82306; 83036; 85025

== ENCOUNTER → 2024-05-19 09:51 | Outpatient (BNVA) | payer MEDICARE, SELFPAY | PROVIDERS: PCP Student in an Organized Health Care Education/Training Program; Referring Provider Student in an Organized Health Care Education/Training Program; Visit Provider Student in an Organized Health Care Education/Training Program | DX: M76.31 Iliotibial band syndrome, right leg (principal); M70.61 Trochanteric bursitis, right hip | CPT/HCPCS: 99213 ==

== ENCOUNTER 2024-06-18 06:12 | Day surgery (SDC) | payer MEDICARE, SELFPAY ==
[2024-06-18] VITALS (36 sets, daily range): BP systolic 108–151; BP diastolic 46–103; PULSE 52–73; RESP 9–22; TEMP 36.2–36.7; O2SAT 92–99; BMI 33.7
[2024-06-18] MEDS: Normal Saline 500 ML 30 ML IV (07:06)
--- NOTE | 2024-06-18 07:09 | W.PM.DSUDISC ---
Date of service: 06/18/24 Discharge Plan Disposition Patient Disposition: Home Condition: Stable Discharge Details Attending Provider: Wally Case Primary Care Provider: Christine Dey Home Meds and New Rx's Prescriptions: New aspirin 81 mg capsule 81 mg PO DAILY 14 Days Qty: 14 0RF naproxen 250 mg tablet 250 - 500 mg PO BID PRN (Reason: moderate pain and swelling) Qty: 40 0RF oxycodone 5 mg tablet 5 - 10 mg PO .q4-6h MDD 30 mg PRN (Reason: severe pain) Qty: 12 0RF Continued naloxone [Narcan] 4 mg/actuation spray,non-aerosol 4 mg CARLA Q2M PRN (Reason: opioid overdose) Qty: 2 1RF Rx Instructions: spray 1 dose into ONE nostril; alternate nostrils w each dose until help arrives albuterol sulfate 90 mcg/actuation HFA aerosol inhaler 1 puff INHALATION Q6H PRN (Reason: shortness of breath or wheezing) Qty: 6.7 2RF oxycodone-acetaminophen 5-325 mg tablet 2 tab PO TID Patient Comments: per Marissa pt has been getting this rx from [facility] out of [facility], [address] each time, 1-2 tabs 3x/day not to exceed 5 tabs. Rx Instructions: Recommending 2 tabs TID x next 10 days! IK, 10/25/[address] KAUR fluticasone propionate 50 mcg/actuation spray,suspension 2 spray intranasal QHS Qty: 16 2RF Rx Instructions: administer into each nostril for congestion, nightly gabapentin 800 mg tablet See Rx Instructions PO TID PRN Patient Comments: taking 1/2 tab BID Rx Instructions: 800mg qHD, 400mg AM, 400mg 2-3PM (DME) Orthopedic Shoes See Rx Instructions .Route .MEDSUPPLY Qty: 1 0RF Rx Instructions: For neuropathic pain diazepam 10 mg tablet See Rx Instructions PO .COMPLEX MDD 30mg PRN (Reason: muscle spasm/relaxation; sleep) Qty: 7 0RF Rx Instructions: 20mg qHS, with added 10mg daily post surgery orally x 1 week PRN; Short-term increase post neuro-surgery, ik. omeprazole 20 mg capsule,delayed release(DR/EC) 20 mg PO BID Qty: 180 3RF Multiple Vitamin-Minerals Tablet 1 tab PO DAILY Qty: 90 1RF atorvastatin 40 mg tablet 40 mg PO DAILY Qty: 90 3RF metoprolol succinate 50 mg tablet extended release 24 hr See Rx Instructions .ROUTE .COMPLEX Qty: 90 3RF Dose Instruction: TAKE 1 TABLET BY MOUTH DAILY Rx Instructions: TAKE 1 TABLET BY MOUTH DAILY Discontinued ibuprofen 800 mg tablet 800 mg PO TID naproxen 500 mg tablet 500 mg PO BID Rx Instructions: Trial WITH REAL FOOD - instead of Ibuprofen, Celebrex Discharge Instructions Additional Instructions: Surgery: Right hip endoscopy with revision iliotibial band release and trochanteric bursectomy Activity: Weightbearing as tolerated. May use crutches or walker as needed for a few days. Gradually advance to full range of motion and activity over the next few weeks. A physical therapy prescription will be sent to start in a few weeks. Prescriptions: Aspirin 81 mg take 1 daily to prevent a blood clot for 2 weeks, starting tomorrow Naproxen 250 mg take 1-2 every 12 hours with a meal as needed for moderate pain Oxycodone 5 mg take 1-2 every 4-6 hours as needed for severe pain You may use [id number] Tylenol (acetaminophen) as needed for mild pain. These pain medications may be taken all at once or in different combinations as needed. Also, recommend Colace (docusate) as a stool softener as surgery and pain medicine cause constipation. You may try [id number] diphenhydramine (Benadryl) 25-50 mg nightly as a sleep aid Dressings: Leave dressing in place for 3 days. May then remove and leave open to air or cover incisions with Band-Aids. Leave the sticky Steri-Strips in place until they fall off or remove them after you shower. May shower after 5 days. Follow-up: 10-[address] Case You may take off the leg compression stockings this evening at home. You may also leave them on a few days longer if you have a history of leg swelling or edema. Let us know right away if you develop any redness, drainage, fevers, chest pain, or trouble breathing. Do not drink alcohol or drive for at least 24 hours after anesthesia. Please call the office during business hours with any questions or concerns. Stand Alone Forms: Anesthesia Discharge InstSarahy, Press Ganey (DSU) Referrals: Wally Case MD [ [facility]] - 06/29/24 9:00 am Discharge Orders Discharge Orders: Discharge Order (Routine); Ordered 06/18/24 Ordered By: Mariama Montiel DS: Diagnosis Discharge Diagnosis (1) Iliotibial band syndrome of right side:
--- NOTE | 2024-06-18 07:23 | ANES.PREOP_ITS ---
General Info Date of Service Date Performed: 06/18/24 Height: 5 ft 6 in Weight: 94.8 kg Body Mass Index (BMI): 33.7 Surgical Procedure: Operation Date: 06/18/24 07:50 Proposed Procedure Side Surgeon p Revision Endoscopic Iliotibial Band Release w/Trochanteric Bursectomy Right Wally Case MD Meds Allergies and Home Medications Allergies Allergy/AdvReac Type Severity Reaction Status Date / Time No Known Allergies Allergy Verified 06/18/24 06:42 Home Medication ?Medication ?Instructions ?Recorded multivitamin with minerals 1 tab PO DAILY #90 tabs 03/06/22 (Multiple Vitamin-Minerals tablet) Orthopedic Shoes #1 ea 11/22/22 fluticasone propionate 50 2 spray intranasal QHS congestion 11/22/22 mcg/actuation nasal #16 grams spray,suspension gabapentin 800 mg tablet See Rx Instructions PO TID PRN 11/22/22 oxycodone-acetaminophen 5 mg-325 2 tab PO TID 11/22/22 mg tablet diazepam 10 mg tablet See Rx Instructions PO .COMPLEX 03/10/23 PRN muscle spasm/relaxation; sleep #7 tabs atorvastatin 40 mg tablet 40 mg PO DAILY #90 tabs 09/29/23 metoprolol succinate 50 mg See Rx Instructions .Route 10/28/23 tablet,extended release 24 hr .COMPLEX #90 tabs omeprazole 20 mg capsule,delayed 20 mg PO BID #180 caps 02/19/24 release albuterol sulfate 90 mcg/actuation 1 puff inhalation Q6H PRN 04/30/24 aerosol inhaler shortness of breath or wheezing #6.7 grams naloxone 4 mg/actuation nasal 4 mg intranasal Q2M PRN opioid 04/30/24 spray (Narcan) overdose #2 ea aspirin 81 mg capsule 81 mg PO DAILY prevent blood clot 06/18/24 14 days #14 caps naproxen 250 mg tablet 250 - 500 mg (1 - 2 x 250 mg) PO 06/18/24 BID PRN moderate pain and swelling #40 tabs oxycodone 5 mg tablet 5 - 10 mg (1 - 2 x 5 mg) PO .q4-6h 06/18/24 PRN severe pain #12 tabs Current Visit Medications: Current Medications Generic Name Dose Route Start Last Admin Trade Name Freq PRN Reason Stop Dose Admin Cefazolin Sodium/Dextrose 2 gm in 50 mls @ 100 mls/hr 06/18/24 06:00 Ancef Duplex IVPB 06/18/24 23:59 PREOP ANITA Tranexamic Acid/Sodium Chloride 1,000 mg in 100 mls @ 600 mls/hr 06/18/24 06:00 IVPB 06/18/24 23:59 PREOP ANITA Sodium Chloride 500 mls @ 30 mls/hr 06/18/24 07:05 06/18/24 07:06 Saline 500ml Bag IV 07/18/24 07:04 30 mls/hr INFUSION ANITA Administration IV Miscellaneous Supplies 1 each 06/18/24 06:00 Iv Access IV 06/18/24 23:59 DIRECTED ANITA Oxycodone HCl 0 mg 06/18/24 07:08 Oxycodone 5 Mg Tab PO 07/18/24 07:07 Q3H PRN PRN Pain Sodium Chloride 0 ml 06/18/24 06:00 Normal Saline Flush 10 Ml Syr IV 06/18/24 23:59 PRN PRN Sodium Chloride 0 ml 06/18/24 06:00 Normal Saline 10 Ml Vial IJ 06/18/24 23:59 DIRECTED PRN Sterile Water 0 ml 06/18/24 06:00 Water,Injection,Sterile 10 Ml Vial IJ 06/18/24 23:59 DIRECTED PRN PFSH Active Problems Active Problems: Problem Status Onset Code Musculoskeletal thigh pain Acute M79.659 Anxiety as acute reaction to exceptional stress Acute F41.1, F43.0 Stress reaction Acute F43.0 Stiffness of right upper arm joint Acute M25.621 Stiffness of joint, upper arm Acute M25.629 Stiffness of left upper arm joint Acute M25.[address] scan, esophagus Acute R93.3 Adjustment disorder, unspecified Chronic F43.20 History of anemia Acute Z86.2 Malnutrition compromising bodily function Acute E46 Back pain with risk for osteoporosis Acute M54.9, Z91.89 At high risk for osteoporosis Acute Z91.89 Back stiffness Acute M25.69 Cervical spine degeneration Acute M47.812 Weakness of left arm Acute R29.898 Tremor of left hand Acute R25.1 Back pain with history of spinal surgery Acute ~01/23/23 M54.9, Z98.890 Lumbar stenosis Acute M48.061 Difficulty sleeping Acute G47.9 Hyperlipidemia Acute E78.5 Chronic back pain Chronic M54.9, G89.29 Stress due to illness of family member Acute Z63.79 Stressful life events affecting family and household Acute Z63.79 Essential hypertension Chronic I10 Hypotension Acute 09/2018 I95.9 Hip pain, right Resolved 09/24/17 M25.551 Lung nodule, multiple Chronic R91.8 Elevated glucose Acute R73.09 Medical History Medical History Severe back pain eli eimprovement post [facility] surgery, Fall 2022..Long Hx lumbar, and post [id number], but moving up into thoracic spine .. History of gallbladder disease s/p cholecystectomy, ? .. 1st lap [place] in [place]! Iliotibial band syndrome of right side Post release, [facility], 09/2022 Cellulitis of right thigh Trochanteric bursitis, left hip SARS-CoV-2 positive (~12/18/21) again 04/12/22 Discontinued smoking PTSD (post-traumatic stress disorder) Anesthesia Per pt. states in the past he has woken up violently, states at night he takes valium to shut his brain off and that works well for him. Pt. states it is related to PTSD from . Left foot pain Distal phalanges (?) #2, #3 ... and/or transverse arch pathology. 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 Ana Garvey [place] [facility] [place]chanteric bursitis, right hip Injected: 01/15/2019, 10/22/2021 Diarrhea (03/28/15) Superficial dehiscence of wound Mostly irritating, draining, but significant drainage @ distal section of surg site warranting wound evaluation. Stopped triple-antibiotic in case of aggrav; trial silvadene/gauze. Medical History Comments:: Per pt. states in the past he has woken up violently, states at night he takes valium to shut his brain off and that works well for him. Pt. states it is related to PTSD from . Call out to [facility], do not touch. R hip and R buttocks pain Surgical History Surgical History History of esophagogastroduodenoscopy (~06/2023) biopsies sent Hx of spinal surgery Status post hip surgery IlioTib Band RELEASE, September 2022 ([facility]).. Hips replaced, L, R years earlier.. Cubital tunnel syndrome on left S/P ECTR: 07/09/2021 Left carpal tunnel syndrome S/P release: 07/09/2021 Status post total hip replacement, left (01/04/20) Treatment for avascular necrosis of the left hip. History of total replacement of right hip (~04/2018) [facility] [place] of right hip replacement back surgery (11/08/09) back surgery (11/17/07) back surgery (11/05/05) back fusion (11/09/12) Trigger Finger release (10/11/16) RIGHT RING FINGER/DR. POWELL Cholecystectomy (~1979) Tobacco Smoking/Tobacco Use Status: Current every day Tobacco Type: pipe Alcohol Alcohol Intake: current Alcohol intake frequency: a few times a week Alcohol type: beer Substance Use Substance use: Occasionally Substance use type: marijuana Details: alcohol: t-3, marijuana: t-1, smoking/edibles Vital Signs and Lab Results Vital Signs Most Recent Vital Signs in EMR: Most Recent Vital Signs Temp Pulse Resp BP Pulse Ox 36.5 C 63 16 151/81 H 99 06/18/24 06:32 06/18/24 06:32 06/18/24 06:32 06/18/24 06:32 06/18/24 06:32 Lab Results Blood Type / Crossmatch: No Data to Display Complete Blood Count: No Data to Display Complete Metabolic Panel: No Data to Display Liver Function Panel: No Data to Display Coagulation Panel: No Data to Display Cardiac Panel: No Data to Display Arterial Blood Gas: No Data to Display Venous Blood Gas: No Data to Display Pancreas Panel: No Data to Display Thyroid Panel: No Data to Display Infectious Disease: No Data to Display Blood Cultures: No Data to Display Toxicology Panel: No Data to Display Imaging and Studies Imaging and Studies Study information below may be from another EMR and interpreted by another provider. Please see original notes in EMR for more complete details. EKG Summary: Conclusion Sinus rhythm... V-rate 60- [address] segment or T wave abnormalities to suggest occlusive MA Anesthesia Assessment and Plan Anesthesia History Personal History: No History of Anesthesia Complications and Other Family History: No Family History of Anesthesia Complications Exercise Tolerance Exercise Tolerance: Metabolic Equivalents>4 Pertinent Negatives Pertinent Negatives: No Symptoms of GERD, No Major Cardiovascular Symptoms or Complaints, No Major Pulmonary Symptoms or Complaints and No History of CVA/TIA Cardiac & Pulmonary Exam Cardiac Exam: Normal S1/S2 Heart Sounds Pulmonary Exam: Clear Bilateral Breath Sounds Implantable Cardiac Device Does patient have a Pacemaker or an ICD?: No Airway Exam Known Difficult Airway: No Mallampati Class: 3 Mouth Opening: Normal (> 3cm) Thyromental Distance: Greater than 3 cm Neck Range of Motion: Full ROM Neck Circumference: Normal Teeth Condition: Generalized Poor Dentition (Denies any loose teeth. ) ASA Classification ASA Score: ASA 2 Emergency Case?: No NPO Status NPO Status: NPO Clears >2 hours, Solids >8 hours Anesthesia Plan Resuscitation Status: Full Code Anesthesia Technique: General Anesthesia Airway Planned: Endotracheal Tube Monitors Used: Standard Monitors and SedLine
--- NOTE | 2024-06-18 07:27 | W.PM.OP ---
Operative Note Operative Note PRE-OP DIAGNOSIS: Right hip 1. Recurrent iliotibial band syndrome 2. Recurrent Trochanteric bursitis POST-OP DIAGNOSIS: same PROCEDURE: Right hip endoscopic 1. Revision iiliotibial band release, CPT# 64447 2. Revision Trochanteric bursectomy, CPT# 89545 SURGEON: Wally Case ANESTHESIA TYPE: Local By Surgeon and General LMA/ETT Refer to Anesthesia Record ESTIMATED BLOOD LOSS: 5 COMPLICATIONS: None Patient was transported to: PACU Patient's condition: stable Indications: Significant recurrent lateral peritrochanteric pain discomfort. Did well in the past after surgical treatment with corticosteroid injection seemingly confirming this site of pathology. Heightened risk for persistent problems given the revision setting and likely concomitant lumbar spine pathology as well, which we discussed thoroughly. Please see complete medical record for details. Findings: Healed iliotibial band release with klein tissue and some adhesions to her reformed trochanteric bursa. No significant gluteal tendon tearing. Normal?appearing gluteus medius and gluteus minimus muscles. Vastus lateralis and gluteus ramon tendons okay as well. Procedure Description: In the operating room, general anesthesia was induced. The patient was positioned supine on the [place] operating room table. All bony prominences were well-padded. Preoperative antibiotics were administered. The hip was prepped and draped in the usual sterile fashion. The correct patient, procedure, and side of the procedure were all verified prior to incision. 30 cc of 0.25% bupivacaine containing epinephrine was infiltrated about the subcutaneous tissues from the previous anterior lateral and distal anterolateral portals as well as deeply over the greater trochanter. A knife was used to incise the skin for the anterior lateral and distal anterolateral portals followed by blunt dissection subcutaneously. Using fluoroscopic guidance, arthroscope and shaver were localized over the reformed iliotibial band laterally centrally over the greater trochanter. Blunt dissection mechanical shaver used to resect some fat, adhesions, and expose the margins of the IT band. The center was localized with a needle using fluoroscopic guidance and it was released using the [place] blade and radiofrequency ablator and a more wide fashion both longitudinal and transverse given the revision setting. The shaver was used to debride the edges. The cuff grasper was used to confirm the underlying trochanteric bursa separate from the gluteal and greater trochanteric structures and it was bluntly dissected before being resected completely with the mechanical shaver. The radiofrequency wand was used to establish hemostasis. Again, there was excellent visualization of the vastus lateralis as well as gluteus medius, minimus, and ramon confirming appropriate IT band release and bursa excision. The hip was brought through range of motion including internal and external rotation and there was no impinging iliotibial band tissue or remaining pathologic bursa. The viewing and working portals were switched and appropriate IT band release, trochanteric bursa excision, and hemostasis confirmed. Suction was used to remove fluid from the endoscopic space. The portals were closed using 3-0 Monocryl in a buried fashion. Steri-Strips were applied over the incisions followed by Xeroform, 4 x 4 gauze, an ABD pad, and secured with tape. The patient awoke from anesthesia without complication and was transferred to the recovery room in a stable condition. Date of Procedure: 06/18/24
[2024-06-18] MEDS: ceFAZolin 2 GM/50 ML BAG IVPB (07:45)
[2024-06-18] MEDS: TRANEXAMIC ACID/SOD. CHL. 1,000 MG/100 ML BAG 600 MG IVPB (07:48)
[2024-06-18] MEDS: EPINEPHrine 10 MG/10 ML ML (08:13)
[2024-06-18] MEDS: Bupivacaine 0.25% Pres-Free W/EPI 30 ML VIAL (08:13)
--- NOTE | 2024-06-18 08:45 | DI.RAD_ITS ---
Exam(s) XR HIP RT IN OR EXAM: XR HIP RT IN OR CLINICAL HISTORY: IT BAND SYNDROME RIGHT HIP. TECHNIQUE: 2D digital imaging was performed. COMPARISON: CT CT CHEST PE CTA from 04/09/2023 FINDINGS: Fluoroscopy was provided intraoperatively during orthopedic procedure on the right hip. See procedur e report for details. Total fluoroscopy time 5 seconds IMPRESSION: Radiation exposure index/cumulative dose:Ka,r= 0.9333 mGy DATA REPOSITORY: RADIATION DOSE DELIVERED:
[2024-06-18] MEDS: fentaNYL 100 MCG/2 ML VIAL IVP ×2 (09:03→09:30)
[2024-06-18] MEDS: ACETAMINOPHEN 1,000 MG/100 ML BAG 400 MG IVPB (09:07)
[2024-06-18] MEDS: HYDROmorphone 1 MG/ML SYR IVP ×4 (09:11→09:59)
[2024-06-18] MEDS: Normal Saline 1,000 ML 30 ML IV (09:43)
[2024-06-18] MEDS: oxyCODONE 5 MG TAB PO (11:08)
--- NOTE | 2024-06-18 11:25 | W.ANESPOSTOP ---
Postoperative Evaluation Date, Time and Location Date Performed: 06/18/24 Time Performed: 11:25 Patient Location: Day Surgery Unit Vital Signs Most Recent Imported Vital Signs: Most Recent Vital Signs Temp Pulse Resp BP Pulse Ox 36.3 C L 55 L 16 124/81 98 06/18/24 10:57 06/18/24 10:57 06/18/24 10:57 06/18/24 10:57 06/18/24 10:57 Pain Score Most Recent Pain Score: Most Recent Pain Score Pain Level 6 06/18/24 10:57 Assessment Mental Status: Awake (Alert & Oriented to Patient Baseline) Airway and Respiratory Function: Patent airway with normal (patient baseline) respiratory exam Cardiovascular Function: Hemodynamically Stable Hydration Status: Adequately Hydrated Nausea & Vomiting: No Nausea or Vomiting Pain: Pain is Moderate or Severe Postoperative Pain Management: Pain being addressed with medication Peripheral Nerve Block: Patient did not receive a nerve block
== END 2024-06-18 12:36 | disposition home or self-care (01) ==
PROVIDERS: PCP Student in an Organized Health Care Education/Training Program; Visit Provider Student in an Organized Health Care Education/Training Program
PROC: (CPT 29863; principal; 2024-06-18 07:30)
DX: M76.31 Iliotibial band syndrome, right leg (principal); I10 Essential (primary) hypertension; M70.61 Trochanteric bursitis, right hip
CPT/HCPCS: 27305; 27062; 73501; J0131; J0690; J1100; J1171; J1885; J2250; J2371; J2405; J2704; J3010

== ENCOUNTER → 2024-07-06 08:52 | Outpatient (BNVA) | payer MEDICARE, SELFPAY | PROVIDERS: PCP Student in an Organized Health Care Education/Training Program; Referring Provider Student in an Organized Health Care Education/Training Program | DX: M76.31 Iliotibial band syndrome, right leg (principal); M70.61 Trochanteric bursitis, right hip | CPT/HCPCS: 99024 ==

== ENCOUNTER 2024-07-16 10:22 | Emergency (ER) | payer MEDICARE, SELFPAY ==
[2024-07-16 10:34] VITALS: BP 129/92; PULSE 78; RESP 14; TEMP 36.7; O2SAT 96
[2024-07-16] MEDS: diazePAM 10 MG/2 ML SYR 5 MG IM (12:25)
[2024-07-16] MEDS: oxyCODONE 10 MG TAB PO (12:25)
[2024-07-16] MEDS: Ketorolac 30 MG/ML VIAL IM (12:25)
[2024-07-16 13:31] VITALS: BP 166/79; PULSE 97; RESP 20; O2SAT 97
--- NOTE | 2024-07-16 14:03 | ED.GENADUL_ITS ---
Discharge Plan Disposition Patient Disposition: Home Condition: Stable Discharge Details Clinical Impression: Pain of right lower extremity Primary Care Provider: Karen Posadas ED Provider: Kyle Lopez Home Meds and New Rx's Prescriptions: New prednisone 20 mg tablet 20 mg PO DAILY Qty: 8 0RF Continued naloxone [Narcan] 4 mg/actuation spray,non-aerosol 4 mg CARLA Q2M PRN (Reason: opioid overdose) Qty: 2 1RF Rx Instructions: spray 1 dose into ONE nostril; alternate nostrils w each dose until help arrives albuterol sulfate 90 mcg/actuation HFA aerosol inhaler 1 puff INHALATION Q6H PRN (Reason: shortness of breath or wheezing) Qty: 6.7 2RF gabapentin 800 mg tablet See Rx Instructions PO TID PRN Patient Comments: taking 1/2 tab BID Rx Instructions: 800mg qHD, 400mg AM, 400mg 2-3PM (DME) Orthopedic Shoes See Rx Instructions .Route .MEDSUPPLY Qty: 1 0RF Rx Instructions: For neuropathic pain omeprazole 20 mg capsule,delayed release(DR/EC) 20 mg PO BID Qty: 180 3RF Multiple Vitamin-Minerals Tablet 1 tab PO DAILY Qty: 90 1RF atorvastatin 40 mg tablet 40 mg PO DAILY Qty: 90 3RF metoprolol succinate 50 mg tablet extended release 24 hr See Rx Instructions .ROUTE .COMPLEX Qty: 90 3RF Dose Instruction: TAKE 1 TABLET BY MOUTH DAILY Rx Instructions: TAKE 1 TABLET BY MOUTH DAILY naproxen 250 mg tablet 250 - 500 mg PO BID PRN (Reason: moderate pain and swelling) Qty: 40 0RF diazepam 10 mg tablet 10 mg PO DAILY MDD 30mg Held oxycodone-acetaminophen 5-325 mg tablet 2 tab PO TID Hold Instructions: Resume on 07/19/24. hold while taking morphine IR Patient Comments: thomas Ann pt has been getting this rx from Christoph Thompson out of [facility], [address] each time, 1-2 tabs 3x/day not to exceed 5 tabs. Rx Instructions: Recommending 2 tabs TID x next 10 days! IK, 10/25/[address] KAUR No Action pregabalin 225 mg capsule 225 mg PO BID Qty: 60 0RF Discharge Instructions Instructions: Morphine (Systemic), Sciatica ED Additional Instructions: You were given morphine IR 15 mg tablets #4 today in the emergency department. Please use these and substitution of Percocet. Do not take Percocet and morphine together. Avoid activities that worsen pain. Please contact your primary care physician to arrange follow-up on Friday. Additional outpatient diagnostic studies including MRI of the lumbar spine may be indicated. Return to the ER immediately for any worsening or new concerning symptoms. Referrals: Karen Posadas NP [Primary Care Provider] - Discharge Data Discharge Date/Time-TO BE ENTERED AT DEPARTURE: 07/16/24 14:35 HPI General Mode of arrival: ambulatory . Date/Time Provider Initiated Documentation: 07/16/24 10:25 . Limitations to Documentation: no limitations . Information obtained by: patient . HPI Narrative: 64yo male here with chief complaint of right lower extremity pain. Patient notes intermittent severe right lower extremity pain. Pain starts in his posterior lateral mid upper right lower extremity and radiates posterior laterally down to his heel. Pain is episodic and feels like an electrical jolt. Episodes are brief lasting seconds to minutes and occur multiple times during the day. Symptoms started a few days after right hip surgery that was performed on 06/18/2024. Patient does have a prior history of back pain and L4-L5 fusion. He does not have acute back pain. No focal weakness. Patient notes he has been using opioids to control pain. Related Data Home Medications ?Medication ?Instructions ?Recorded ?Confirmed multivitamin with minerals 1 tab PO DAILY #90 tabs 03/06/22 07/19/24 (Multiple Vitamin-Minerals tablet) Orthopedic Shoes #1 ea 11/22/22 07/19/24 gabapentin 800 mg tablet See Rx Instructions PO TID PRN 11/22/22 07/19/24 oxycodone-acetaminophen 5 mg-325 2 tab PO TID 11/22/22 07/19/24 mg tablet atorvastatin 40 mg tablet 40 mg PO DAILY #90 tabs 09/29/23 07/19/24 metoprolol succinate 50 mg See Rx Instructions .Route 10/28/23 07/19/24 tablet,extended release 24 hr .COMPLEX #90 tabs omeprazole 20 mg capsule,delayed 20 mg PO BID #180 caps 02/19/24 07/19/24 release albuterol sulfate 90 mcg/actuation 1 puff inhalation Q6H PRN 04/30/24 07/19/24 aerosol inhaler shortness of breath or wheezing #6.7 grams naloxone 4 mg/actuation nasal 4 mg intranasal Q2M PRN opioid 04/30/24 07/19/24 spray (Narcan) overdose #2 ea naproxen 250 mg tablet 250 - 500 mg (1 - 2 x 250 mg) PO 06/18/24 07/19/24 BID PRN moderate pain and swelling #40 tabs diazepam 10 mg tablet 10 mg PO DAILY muscle 07/16/24 07/19/24 spasm/relaxation; sleep prednisone 20 mg tablet 20 mg PO DAILY #8 tabs 07/16/24 07/19/24 pregabalin 225 mg capsule 225 mg PO BID #60 caps 07/19/24 07/19/24 Previous Rx's ?Medication ?Instructions ?Recorded multivitamin with minerals 1 tab PO DAILY #90 tabs 03/06/22 (Multiple Vitamin-Minerals tablet) Orthopedic Shoes #1 ea 11/22/22 atorvastatin 40 mg tablet 40 mg PO DAILY #90 tabs 09/29/23 metoprolol succinate 50 mg See Rx Instructions .Route 10/28/23 tablet,extended release 24 hr .COMPLEX #90 tabs omeprazole 20 mg capsule,delayed 20 mg PO BID #180 caps 02/19/24 release albuterol sulfate 90 mcg/actuation 1 puff inhalation Q6H PRN 04/30/24 aerosol inhaler shortness of breath or wheezing #6.7 grams naloxone 4 mg/actuation nasal 4 mg intranasal Q2M PRN opioid 04/30/24 spray (Narcan) overdose #2 ea naproxen 250 mg tablet 250 - 500 mg (1 - 2 x 250 mg) PO 06/18/24 BID PRN moderate pain and swelling #40 tabs prednisone 20 mg tablet 20 mg PO DAILY #8 tabs 07/16/24 pregabalin 225 mg capsule 225 mg PO BID #60 caps 07/19/24 Allergies Allergy/AdvReac Type Severity Reaction Status Date / Time No Known Allergies Allergy Verified 07/19/24 08:09 General Stated Complaint: Orthopedic ROSMERY: 4 Review of Systems All systems reviewed & are unremarkable except as noted in HPI and below Constitutional Constitutional: Denies fever(s) Musculoskeletal Musculoskeletal: Reports as per HPI Exam Const General: cooperative Orientation: alert and awake Other: intermittent episodes of cramping/spasm right lower extremity HENMT Head: normocephalic and atraumatic Mouth: moist mucous membranes Resp Auscultation: clear to auscultation bilaterally, no rales, no rhonchi and no wheezes Cardio Rate: regular rate and not tachycardic Rhythm: regular rhythm GI Palpation: soft, not firm, no guarding, no masses, not rigid and nontender Back/Spine/Pelvis Cervical Spine: cervical ROM normal and No cervical spinal tenderness Thoracic/Lumbar Spine: No thoracic spinal tenderness and No lumbar spinal tenderness Skin General skin exam: no rashes or lesions noted Neuro General: patient alert, patient awake, patient oriented x3 and tone normal Cognition: normal cognition Other: distal RLE sensation intact, no saddle anesth; 5/5 strength bilateral LEs Extrem General: no edema Right lower extremity: no joint enlargement, hip/thigh Details: no tenderness and no swelling, knee Details: no tenderness and no swelling, lower leg Details: no tenderness and no localized swelling and foot Details: normal capillary refill, toes with normal ROM and vascular exam Details: dorsalis pedis pulse present Psych Appearance: grossly normal Mental Status: mental status grossly normal Course Vital Signs Vital signs: Vital Signs Temperature 36.7 C 07/16/24 10:34 Pulse 78 07/16/24 10:34 Respiratory Rate 14 07/16/24 10:34 Blood Pressure 129/92 H 07/16/24 10:34 Pulse Oximetry 96 07/16/24 10:34 Temperature 36.7 C 07/16/24 10:34 Temperature Source Oral 07/16/24 10:34 Pulse 97 H 07/16/24 13:31 Respiratory Rate 20 07/16/24 13:31 Blood Pressure 166/79 H 07/16/24 13:31 Blood Pressure Position Sitting 07/16/24 10:34 Pulse Oximetry 97 07/16/24 13:31 Oxygen Delivery Method Room Air 07/16/24 10:34 Oxygen Flow Rate 0 07/16/24 10:34 Pain Level 9 07/16/24 12:10 Medical Decision Making 64-year-old male with history of chronic back pain and lumbar fusion, here with approximately 1 month of intermittent, episodic right lower extremity pain consistent with radiculopathy. Patient is no signs of cauda equina. No recent trauma. Symptoms started after hip revision IT band release and revision trochanteric bursectomy on 06/18/24 -- possibly related to postoperative course inclduing adjustment in gait while healing although this is unclear. I spoke with Dr. Case, who performed his procedure, he notes leg pain unrelated to hip surgery. Patient was treated with analgesic Toradol IM, Valium p.o., oxycodone p.o. No indication for emergent imaging. Patient will require timely outpatient follow-up. Patient does have chronic pain that is being treated with chronic o pioid therapy. I am concerned that he has been requiring additional doses to treat leg pain. I will provide short course of morphine IR to bridge to primary care follow-up. I will also prescribe prednisone burst. CT L spine 12/05/22 interpreted by radiology: Stable degenerative and postsurgical changes. L3-4: Severe loss of disc height. Endplate osteophytes projecting posteriorly. There is artifact at this level related to the pedicle screws. Central canal not well seen at this level. There is neural foraminal narrowing on the right. I called and spoke with primary care nurse and discussed ED presentation and requested timely outpatient follow-up. Will need further outpatient diagnostic imaging. Patient will benefit from follow-up with lighting specialist. Usual and customary discharge instructions were reviewed with the patient. Medical Records Medical records reviewed: Yes I reviewed the patient's medical records. Quality:SDOH Health Related Social Needs: No Data to Display PFSH All Active Problems (Updated 07/19/24 @ 08:40 by Garett Wilson DO) Right sided sciatica (Acute) Pain of right lower extremity (Acute) Musculoskeletal thigh pain (Acute) scar tissue/Hx post-surgical complications Anxiety as acute reaction to exceptional stress (Acute) Stress reaction (Acute) Stiffness of right upper arm joint (Acute) Stiffness of joint, upper arm (Acute) Stiffness of left upper arm joint (Acute) Abnormal CT scan, esophagus (Acute) Adjustment disorder, unspecified (Chronic) History of anemia (Acute) Part 02/19/2022 labs, improved since then her December 2022 hemoglobin.. [] Recheck Malnutrition compromising bodily function (Acute) eating less, post surgery and 2' fatigue, depression (?) Back pain with risk for osteoporosis (Acute) At high risk for osteoporosis (Acute) Back stiffness (Acute) Cervical spine degeneration (Acute) per 01/2021 MRI .. is newleft hand tremor/shake assoc?? Weakness of left arm (Acute) weakness, shaking vs tremor? vs mm spasm? Tremor of left hand (Acute) Back pain with history of spinal surgery (Acute ~01/23/23) Laminectomy, Facetectomy & Foraminotomy, Lumbar, One level, Alexandru (WRVU 15.37). [place] Lumbar stenosis (Acute) 12/03/22 [facility] Neurology note 01/23/23 [facility] note-spinal claudication Difficulty sleeping (Acute) 2' pain as well as Hx nightmares ( PTSD) Hyperlipidemia (Acute) Chronic back pain (Chronic) Dr. Thompson (PCP in [place]) prescribes chronic pain medications for this pt Stress due to illness of family member (Acute) Stressful life events affecting family and household (Acute) House; In-laws; Multiple UTIs; Chr Pain.. 06/2022 Essential hypertension (Chronic) Hx HTN, low recently .. STOPPED HCTZ 01/2019 .. Lowered BB, stay @ 25mg Hypotension (Acute 09/2018) New issue .. decreasing BB . Stay at 25mg 02/10/19 Lung nodule, multiple (Chronic) Stable per 08/[address] CT. 04/02/[address] [facility] [address]: recommend 3-6 month f/u. Elevated glucose (Acute) adding a1c Medical History (Updated 07/19/24 @ 08:40 by Garett Wilson DO) Severe back pain eli eimprovement post [facility] surgery, Fall 2022..Long Hx lumbar, and post [id number], but moving up into thoracic spine .. History of gallbladder disease s/p cholecystectomy, 1979's? .. 1st lap [place] in [place]! Cellulitis of right thigh Trochanteric bursitis, left hip SARS-CoV-2 positive (~12/18/21) again 04/12/22 Discontinued smoking PTSD (post-traumatic stress disorder) Anesthesia Per pt. states in the past he has woken up violently, states at night he takes valium to shut his brain off and that works well for him. Pt. states it is related to PTSD from . Left foot pain Distal phalanges (?) #2, #3 ... and/or transverse arch pathology. 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 Ana Garvey MD [facility] Trochanteric bursitis, right hip Injected: 01/15/2019, 10/22/2021 Diarrhea (03/28/15) Superficial dehiscence of wound Mostly irritating, draining, but significant drainage @ distal section of surg site warranting wound evaluation. Stopped triple-antibiotic in case of aggrav; trial silvadene/gauze. Surgical History (Updated 06/18/24 @ 09:16 by SHAKIR Nassar) Iliotibial band syndrome of right side s/p Right hip endoscopy with iliotibial band release and trochanteric bursectomy on 08/30/22 and Right hip endoscopy with revision iliotibial band release and trochanteric bursectomy on 06/18/24 History of esophagogastroduodenoscopy (~06/2023) biopsies sent Hx of spinal surgery Status post hip surgery IlioTib Band RELEASE, September 2022 (Pretty).. Hips replaced, L, R years earlier.. Cubital tunnel syndrome on left S/P ECTR: 07/09/2021 Left carpal tunnel syndrome S/P release: 07/09/2021 Status post total hip replacement, left (01/04/20) Treatment for avascular necrosis of the left hip. History of total replacement of right hip (~04/2018) [facility] History of right hip replacement back surgery (11/08/09) back surgery (11/17/07) back surgery (11/05/05) back fusion (11/09/12) Trigger Finger release (10/11/16) RIGHT RING FINGER/DR. POWELL Cholecystectomy (~1979) Family History Mother , AD at age 84. Diabetes Heart failure Dementia Father No problems noted. Sister Diabetes Sister , Hypothermia at age 43. No problems noted. Brother Mental disorder Brother No problems noted. Social History Smoking/Tobacco Use Status: Current every day Tobacco Type: pipe Tobacco: How many years used: 40 Smoking risk assessment performed?: Yes Alcohol Intake: current Alcohol Intake frequency: a few times a week Alcohol type: beer Drug use: Occasionally Substance use type: marijuana Details: alcohol: t-3, marijuana: t-1, smoking/edibles Adopted: No Foster care: No Household members: significant other Housing: house Number of Children: 0 Communication Needs: Corrective Lenses Pets and animals: Yes Pets and animals: cat(s), dog(s) and turtle(s) Current gender identity: male What is your relationship status?: living with partner Panel score (0-1 are the most socially isolated patients): 1 Duration: > 90 minutes/day Seatbelt use: always Helmet use: No Water heater temp set <120 deg: Yes Working smoke detector in home: Yes Fire extinguisher in home: Yes Carbon monox detector in home: Yes Firearms in home: Yes Firearms unloaded and locked: Yes Do you feel safe at home: Yes Do you feel safe in your relationship?: Yes Victim of physical abuse: No Victim of emotional abuse: No Victim of sexual abuse: No
[2024-07-16] MEDS: MORPHine IR 15 MG TAB, 4 TABS/BTL PO (14:21)
[2024-07-16 14:24] VITALS: BP 139/79; PULSE 98; RESP 18; O2SAT 98
== END 2024-07-16 14:35 | disposition home or self-care (01) ==
PROVIDERS: Emergency Provider Student in an Organized Health Care Education/Training Program; PCP Nurse Practitioner
DX: M79.651 Pain in right thigh (principal); I10 Essential (primary) hypertension; E78.5 Hyperlipidemia, unspecified; F17.290 Nicotine dependence, other tobacco product, uncomplicated; Z98.890 Other specified postprocedural states
CPT/HCPCS: 96372; 99284; J1885; J3360

== ENCOUNTER 2024-08-05 02:58 | Outpatient (CLI) | payer MEDICARE, SELFPAY ==
--- NOTE | 2024-08-05 06:15 | DI.MRI_ITS ---
Exam(s) MR LUMBAR SPINE WO EXAM: MR LUMBAR SPINE WO CLINICAL HISTORY: new leg pain,? worsening stenosis,m48.061. TECHNIQUE: Multiplanar multisequence MRI of the Lumbar spine was performed. COMPARISON: MR MR LUMBAR SPINE WO from 10/16/[address] LUMBAR SPINE WO from 12/05/2022 FINDINGS: Bones: The last intervertebral disc space is designated the L5/S1 level for the numbering purpose of this examination. There are endplate degenerative signal changes at multiple levels of the lumbar s pine. The findings are most marked from L2-3 through L5-S1. Endplate osteophytes are seen. There i s disc space narrowing from L2-3 through L5-S1. There is a mild left convex lumbar scoliosis. There is grade 1 anterolisthesis of L4 on L5. There is posterior fusion again seen at L4 and L5. There is artifact from the patient's bilateral total hip replacements. Cord: The conus tip ends at the T12-L1 level. It is of normal size and signal intensity. T12-L1: No disc herniations or bulges are present. No central spinal canal or neural foraminal stenos is. L1-2: There is a mild diffuse disc bulge. No central spinal canal or neural foraminal stenosis. L2-3: There is a mild diffuse disc bulge causing mild central spinal canal stenosis. There is modera te right and mild left neural foraminal stenosis. L3-4: This level is compromised due to artifact from the patient's posterior spinal surgery. No defi nite central spinal canal stenosis is seen. There is bilateral neural foraminal stenosis which is mi [id number] in degree. L4-5: This level is compromised by artifact from the patient's posterior spinal surgery. No definite central spinal canal stenosis is seen. There is mild narrowing of the left neural foramen. L5-S1: There are degenerative changes of the facets present. The level is difficult to visualize due to artifact. There is again seen a rounded density adjacent to the right facet projecting into the spinal canal. This may represent an osteophyte versus is a synovial cyst. This is unchanged but fisher s appear to cause compression upon the right S1 and L5 nerve roots. There is also mild resultant ted rowing of the central spinal canal. There is moderate bilateral neural foraminal narrowing. Soft tissues: The visualized SI joints and sacrum are well maintained. The paraspinal soft tissues ar e unremarkable. Visualized abdominal organs: There are bilateral simple renal cysts. The largest is on the left kidn ey and measures 1.8 x 2.1 cm. No follow-up is recommended. IMPRESSION: 1. The findings appears stable compared to the examination from 10/16/2022. 2. No evidence of progression of disease. 3. Posterior spinal surgery at L4 and L5. 4. Multilevel degenerative changes in the lumbar spine resulting in central spinal canal neural madan inal stenosis as described above. DATA REPOSITORY:
== END 2024-08-05 03:18 ==
LOC: DI 02:58
PROVIDERS: PCP Nurse Practitioner; Visit Provider Nurse Practitioner Family
DX: M48.061 Spinal stenosis, lumbar region without neurogenic claudication (principal)
CPT/HCPCS: 72148

== ENCOUNTER → 2024-08-17 09:20 | Outpatient (BNVA) | payer MEDICARE, SELFPAY | PROVIDERS: PCP Nurse Practitioner; Referring Provider Student in an Organized Health Care Education/Training Program; Visit Provider Student in an Organized Health Care Education/Training Program | DX: Z47.89 Encounter for other orthopedic aftercare (principal); M76.31 Iliotibial band syndrome, right leg | CPT/HCPCS: 99024 ==

== ENCOUNTER 2024-11-30 07:51 | Emergency (ER) | payer MEDICARE, SELFPAY ==
[2024-11-30] VITALS (24 sets, daily range): BP systolic 141–178; BP diastolic 71–91; PULSE 63–83; RESP 9–20; TEMP 37.1; O2SAT 92–96
[2024-11-30 08:53] LABS: Abs Immature Grans 0.04 10^3/uL (0.0-0.06); Absolute Basophil Count 0.05 10^3/uL (0.0-0.2); Absolute Eosinophil Count 0.04 10^3/uL (0.0-0.7); Absolute Lymphocyte Count 1.51 10^3/uL (1.2-3.4); Absolute Monocyte Count 0.51 10^3/uL (0.1-0.8); Absolute Neutrophil Count 7.42 10^3/uL (1.2-6.7); Basophils % 0.5 %; Eosinophils % 0.4 %; HCT 43.1 % (40.0-50.0); HGB 14.8 g/dL (13.5-17.5); Immature Grans % 0.4 %; Lymphocytes % 15.8 %; MCH 30.9 pg (27.0-33.0); MCHC 34.3 % (32.0-36.0); MCV 90 fL (80-95); MPV 8.3 fL (8.0-11.0); Monocytes % 5.3 %; Neutrophils % 77.6 %; Platelet Count 165 10^3/uL (130-400); RBC 4.79 10^6/uL (4.36-5.78); RDW 11.7 % (11.8-14.1); RDW-SD 38.5 fL; WBC 9.57 10^3/uL (4.4-10.8)
[2024-11-30] MEDS: Prochlorperazine 10 MG/2 ML VIAL 5 MG IVP (08:56)
[2024-11-30] MEDS: HYDROmorphone 2 MG/ML SYR 1 MG IVP (08:56)
[2024-11-30] MEDS: Acetaminophen 500 MG TAB 1000 MG PO (08:56)
[2024-11-30] MEDS: diazePAM 5 MG TAB PO (08:56)
[2024-11-30 09:15] LABS: ALT 36 U/L (16-63); AST 21 U/L (15-37); Albumin 4.5 g/dL (3.4-5.0); Alkaline Phosphatase 54 U/L (46-116); Anion Gap 7.3 mmol/L (3-11); BUN 9 mg/dL (7-18); Bilirubin, Total 0.4 mg/dL (0.2-1.0); CO2 28.7 mmol/L (21.0-32.0); CREATININE 1.2 mg/dL (0.70-1.30); Calcium 9.6 mg/dL (8.5-10.1); Chloride 101 mmol/L (98-107); Estimated GFR 68.38 (mL/min/1.73m2); Glucose 122 mg/dL (74-106); Potassium 4.4 mmol/L (3.5-5.1); Sodium 137 mmol/L (136-145); Total Protein 7.7 g/dL (6.4-8.2)
--- NOTE | 2024-11-30 11:57 | ED.GENADUL_ITS ---
Discharge Plan Disposition Patient Disposition: Home Condition: Stable Discharge Details Clinical Impression: Chronic back pain Primary Care Provider: Karen Posadas ED Provider: Scarlett Benton Home Meds and New Rx's Prescriptions: New morphine 15 mg tablet 15 mg PO BID PRNQty: 10 0RF methylprednisolone [Medrol ([place])] 4 mg tablets,dose pack See Rx Instructions .ROUTE .COMPLEX Qty: 21 0RF Rx Instructions: for 6 days diazepam [Valium] 5 mg tablet 5 mg PO BID PRNQty: 10 0RF Continued naloxone [Narcan] 4 mg/actuation spray,non-aerosol 4 mg CARLA Q2M PRN (Reason: opioid overdose) Qty: 2 1RF Rx Instructions: spray 1 dose into ONE nostril; alternate nostrils w each dose until help arrives metoprolol succinate 100 mg tablet extended release 24 hr See Rx Instructions .ROUTE .COMPLEX Qty: 90 3RF Dose Instruction: TAKE 1 TABLET BY MOUTH DAILY Rx Instructions: TAKE 1 TABLET BY MOUTH DAILY albuterol sulfate 90 mcg/actuation HFA aerosol inhaler 2 puff INHALATION Q6H PRN (Reason: shortness of breath or wheezing) Qty: 6.7 12RF oxycodone-acetaminophen 5-325 mg tablet 2 tab PO TID Patient Comments: per Marissa pt has been getting this rx from Christoph Thompson out of [facility], [address] each time, 1-2 tabs 3x/day not to exceed 5 tabs. Rx Instructions: Recommending 2 tabs TID x next 10 days! IK, 10/25/[address] KAUR gabapentin 800 mg tablet See Rx Instructions PO TID PRN Patient Comments: taking 1/2 tab BID Rx Instructions: 800mg qHD, 400mg AM, 400mg 2-3PM (DME) Orthopedic Shoes See Rx Instructions .Route .MEDSUPPLY Qty: 1 0RF Rx Instructions: For neuropathic pain atorvastatin 40 mg tablet 40 mg PO DAILY Qty: 90 3RF omeprazole 20 mg capsule,delayed release(DR/EC) 20 mg PO BID Qty: 180 3RF Multiple Vitamin-Minerals Tablet 1 tab PO DAILY Qty: 90 1RF naproxen 250 mg tablet 250 - 500 mg PO BID PRN (Reason: moderate pain and swelling) Qty: 40 0RF diazepam 10 mg tablet 10 mg PO DAILY MDD 30mg Patient Comments: ran out yesterday, waiting for refill from pharmacy Discharge Instructions Instructions: Managing acute pain at home Additional Instructions: Please follow-up from neurosurgery at your appointment I also recommend referral to pain management Please follow-up with Dr. Del Real this week I will place a referral to pain management as well I have prescribed more Valium and morphine, do not take your oxycodone right now, you can take the morphine once every 12 hours and you may take Valium 5 mg in between the morphine dosing, do not take these medications at the same time Please continue to walk around and perform light stretching but do not do any lifting pulling or pushing or climbing Referrals: Karen Posadas NP [Primary Care Provider] - 1 day Discharge Data Discharge Date/Time-TO BE ENTERED AT DEPARTURE: 11/30/24 10:41 HPI General Date/Time Provider Initiated Documentation: 11/30/24 08:05 . HPI Narrative: 64-year-old male with chronic back pain, hypertension, and hyperlipidemia presents with acute exacerbation of back pain. Took oxycodone, Neurontin, and Motrin at 0800 hours without relief. Ran out of Valium yesterday. Has an appointment at a pain center in [place] on 12/15/2024. Recently had an MRI. Contemplating surgery. No changes in bowel/bladder function, fevers, chills, illicit substance use, or lower extremity weakness. Related Data Home Medications ?Medication ?Instructions ?Recorded ?Confirmed multivitamin with minerals 1 tab PO DAILY #90 tabs 03/06/22 11/30/24 (Multiple Vitamin-Minerals tablet) Orthopedic Shoes #1 ea 11/22/22 11/30/24 gabapentin 800 mg tablet See Rx Instructions PO TID PRN 11/22/22 11/30/24 oxycodone-acetaminophen 5 mg-325 2 tab PO TID 11/22/22 11/30/24 mg tablet naloxone 4 mg/actuation nasal 4 mg intranasal Q2M PRN opioid 04/30/24 11/30/24 spray (Narcan) overdose #2 ea diazepam 10 mg tablet 10 mg PO DAILY muscle 07/16/24 11/30/24 spasm/relaxation; sleep naproxen 250 mg tablet 250 - 500 mg (1 - 2 x 250 mg) PO 08/05/24 11/30/24 BID PRN moderate pain and swelling #40 tabs atorvastatin 40 mg tablet 40 mg PO DAILY #90 tabs 08/11/24 11/30/24 omeprazole 20 mg capsule,delayed 20 mg PO BID #180 caps 08/11/24 11/30/24 release albuterol sulfate 90 mcg/actuation 2 puff inhalation Q6H PRN 09/14/24 11/30/24 aerosol inhaler shortness of breath or wheezing #6.7 grams metoprolol succinate 100 mg See Rx Instructions .Route 09/14/24 11/30/24 tablet,extended release 24 hr .COMPLEX #90 tabs diazepam 5 mg tablet (Valium) 5 mg PO BID PRN #10 tabs 11/30/24 methylprednisolone 4 mg tablets in See Rx Instructions PO .COMPLEX 11/30/24 a dose pack (Medrol ([employer] [place])) #21 dose pk morphine 15 mg immediate release 15 mg PO BID PRN #10 tabs 11/30/24 tablet Previous Rx's ?Medication ?Instructions ?Recorded multivitamin with minerals 1 tab PO DAILY #90 tabs 03/06/22 (Multiple Vitamin-Minerals tablet) Orthopedic Shoes #1 ea 11/22/22 naloxone 4 mg/actuation nasal 4 mg intranasal Q2M PRN opioid 04/30/24 spray (Narcan) overdose #2 ea naproxen 250 mg tablet 250 - 500 mg (1 - 2 x 250 mg) PO 08/05/24 BID PRN moderate pain and swelling #40 tabs atorvastatin 40 mg tablet 40 mg PO DAILY #90 tabs 08/11/24 omeprazole 20 mg capsule,delayed 20 mg PO BID #180 caps 08/11/24 release albuterol sulfate 90 mcg/actuation 2 puff inhalation Q6H PRN 09/14/24 aerosol inhaler shortness of breath or wheezing #6.7 grams metoprolol succinate 100 mg See Rx Instructions .Route 09/14/24 tablet,extended release 24 hr .COMPLEX #90 tabs diazepam 5 mg tablet (Valium) 5 mg PO BID PRN #10 tabs 11/30/24 methylprednisolone 4 mg tablets in See Rx Instructions PO .COMPLEX 11/30/24 a dose pack (Medrol ([employer] [place])) #21 dose pk morphine 15 mg immediate release 15 mg PO BID PRN #10 tabs 11/30/24 tablet Allergies Allergy/AdvReac Type Severity Reaction Status Date / Time No Known Allergies Allergy Verified 11/30/24 08:01 General Stated Complaint: Nk/Back Pain ROSMERY: 3 Exam Narrative Exam Narrative: General Appearance: Alert and oriented, appears uncomfortable. Vital signs: Within normal limits. HEENT: Within normal limits. Respiratory: Within normal limits. Gastrointestinal: No abdominal bruit or pulsatile mass. No flank tenderness. Back, Musculoskeletal: Negative straight leg raise. Extremities: Distal pulses intact bilaterally. Strength and sensation intact di stally. Skin: Warm and dry, no rash. Neurological: Negative Babinski. Psychiatric: Other observations: Course Vital Signs Vital signs: Vital Signs Temperature 37.1 C 11/30/24 07:58 Pulse 82 11/30/24 07:58 Respiratory Rate 20 11/30/24 07:58 Blood Pressure 173/91 H 11/30/24 07:58 Pulse Oximetry 96 11/30/24 07:58 Temperature 37.1 C 11/30/24 07:58 Temperature Source Oral 11/30/24 07:58 Pulse 63 11/30/24 10:31 Pulse 68 11/30/24 10:10 Respiratory Rate 12 11/30/24 10:10 Blood Pressure 145/80 H 11/30/24 10:30 Blood Pressure Mean 102 11/30/24 10:30 Blood Pressure Position Supine 11/30/24 07:58 Pulse Oximetry 93 11/30/24 10:31 Oxygen Delivery Method Room Air 11/30/24 07:58 Oxygen Flow Rate 0 11/30/24 07:58 Pain Level 8 11/30/24 07:58 Lab/Test Results Lab/Test Results: Laboratory Tests Range/Units 11/30/24 08:40 WBC (4.4-10.8) 10^3/uL 9.57 RBC (4.36-5.78) 10^6/uL 4.79 Hgb (13.5-17.5) g/dL 14.8 Hct (40.0-50.0) % 43.1 MCV (80-95) fL 90 MCH (27.0-33.0) pg 30.9 MCHC (32.0-36.0) % 34.3 RDW (11.8-14.1) % 11.7 L Plt Count (130-400) 10^3/uL 165 MPV (8.0-11.0) fL 8.3 Immature Gran % % 0.4 Neutrophils % % 77.6 Lymphocytes % % 15.8 Monocytes % % 5.3 Eosinophils % % 0.4 Basophils % % 0.5 Nucleated RBC % (0.0-0.3) % 0.0 Absolute Neutrophils (1.2-6.7) 10^3/uL 7.42 H Absolute Lymphocytes (1.2-3.4) 10^3/uL 1.51 Absolute Monocytes (0.1-0.8) 10^3/uL 0.51 Absolute Eosinophils (0.0-0.7) 10^3/uL 0.04 Absolute Basophils (0.0-0.2) 10^3/uL 0.05 Sodium (136-145) mmol/L 137 Potassium (3.5-5.1) mmol/L 4.4 Chloride (98-107) mmol/L 101 Carbon Dioxide (21.0-32.0) mmol/L 28.7 Anion Gap (3-11) mmol/L 7.3 BUN (7-18) mg/dL 9 Creatinine (0.70-1.30) mg/dL 1.2 Est GFR (CKD-EPI 2020) (mL/min/1.73m2) 68.38 Glucose (74-106) mg/dL 122 H Calcium (8.5-10.1) mg/dL 9.6 Total Bilirubin (0.2-1.0) mg/dL 0.4 AST (15-37) U/L 21 ALT (16-63) U/L 36 Alkaline Phosphatase (46-116) U/L 54 Total Protein (6.4-8.2) g/dL 7.7 Albumin (3.4-5.0) g/dL 4.5 Medical Decision Making MRI showed central canal stenosis from prior evaluation July 2024 Initial Assessment: 64-year-old male with history of chronic back pain, hypertension, hyperlipidemia, presents with acute exacerbation of chronic back pain. Pain not controlled with current medications. ED Course: - Reviewed prior MRI showing central canal stenosis from July. - No clinical findings consistent with cauda equina syndrome. - Labs (CBC, CMP) reassuring, no acute abnormality. - Marked improvement in pain on reassessment. - Given 10 tablets of morphine IR 15 mg. - Prescribed Medrol Dosepak. - Continue Neurontin. - Given 10 tablets of Valium, advised to take between morphine doses, not simultaneously. - Advised not to take oxycodone with morphine. Final Assessment: Patient's pain improved with morphine and Valium. No acute abnormalities in labs. No indication for imaging. [facility]. Clinical Impression: - Chronic back pain exacerbation Disposition: - Discharge - Follow-Up: Appointment with neurosurgery in [place] on 12/15/2024. Follow up with PCP for ongoing management. Patient Education: Return precautions reviewed and patient expressed understanding. MDM Components Evaluation: - Number of Differential Diagnoses or Management Options: Chronic back pain exacerbation - Amount and Complexity of Data Reviewed: Prior MRI, CBC, CMP - Risk of Complication and Morbidity or Mortality: Moderate due to chronic pain and multiple medications. Quality:SDOH Health Related Social Needs: No Data to Display PFSH All Active Problems (Updated 11/30/24 @ 10:23 by SHAKIR Paz) Right sided sciatica (Acute) Musculoskeletal thigh pain (Acute) scar tissue/Hx post-surgical complications Anxiety as acute reaction to exceptional stress (Acute) Stress reaction (Acute) Stiffness of right upper arm joint (Acute) Stiffness of joint, upper arm (Acute) Stiffness of left upper arm joint (Acute) Abnormal CT scan, esophagus (Acute) Adjustment disorder, unspecified (Chronic) History of anemia (Acute) Part 02/19/2022 labs, improved since then her December 2022 hemoglobin.. [] Recheck Malnutrition compromising bodily function (Acute) eating less, post surgery and 2' fatigue, depression (?) Back pain with risk for osteoporosis (Acute) At high risk for osteoporosis (Acute) Back stiffness (Acute) Cervical spine degeneration (Acute) per 01/2021 MRI .. is newleft hand tremor/shake assoc?? Weakness of left arm (Acute) weakness, shaking vs tremor? vs mm spasm? Tremor of left hand (Acute) Back pain with history of spinal surgery (Acute ~01/23/23) Laminectomy, Facetectomy & Foraminotomy, Lumbar, One level, Alexandru (WRVU 15.37). [place] Lumbar stenosis (Acute) 12/03/22 [facility] note 01/23/23 [facility] note-spinal claudication Difficulty sleeping (Acute) 2' pain as well as Hx nightmares ( PTSD) Hyperlipidemia (Acute) Chronic back pain (Chronic) Dr. Thompson (PCP in [place]) prescribes chronic pain medications for this pt Stress due to illness of family member (Acute) Stressful life events affecting family and household (Acute) House; In-laws; Multiple UTIs; Chr Pain.. 06/2022 Essential hypertension (Chronic) Hx HTN, low recently .. STOPPED HCTZ 01/2019 .. Lowered BB, stay @ 25mg Hypotension (Acute 09/2018) New issue .. decreasing BB . Stay at 25mg 02/10/19 Lung nodule, multiple (Chronic) Stable per 08/2020 CT. 04/02/2020 [facility] CT: recommend 3-6 month f/u. Elevated glucose (Acute) adding a1c Medical History (Updated 11/30/24 @ 10:23 by SHAKIR Paz) Severe back pain eli eimprovement post [facility] surgery, Fall 2022..Long Hx lumbar, and post [id number], but moving up into thoracic spine .. History of gallbladder disease s/p cholecystectomy, ? .. 1st [place]! Cellulitis of right thigh Trochanteric bursitis, left hip SARS-CoV-2 positive (~12/18/21) again 04/12/22 Discontinued smoking PTSD (post-traumatic stress disorder) Anesthesia Per pt. states in the past he has woken up violently, states at night he takes valium to shut his brain off and that works well for him. Pt. states it is related to PTSD from . Left foot pain Distal phalanges (?) #2, #3 ... and/or transverse arch pathology. 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 Ana Garvey MD [facility] Trochanteric bursitis, right hip Injected: 01/15/2019, 10/22/2021 Diarrhea (03/28/15) Superficial dehiscence of wound Mostly irritating, draining, but significant drainage @ distal section of surg site warranting wound evaluation. Stopped triple-antibiotic in case of aggrav; trial silvadene/gauze. Surgical History (Updated 06/18/24 @ 09:16 by SHAKIR Nassar) Iliotibial band syndrome of right side s/p Right hip endoscopy with iliotibial band release and trochanteric bursectomy on 08/30/22 and Right hip endoscopy with revision iliotibial band release and trochanteric bursectomy on 06/18/24 History of esophagogastroduodenoscopy (~06/2023) biopsies sent Hx of spinal surgery Status post hip surgery IlioTib Band RELEASE, September 2022 (Pretty).. Hips replaced, L, R years earlier.. Cubital tunnel syndrome on left S/P ECTR: 07/09/2021 Left carpal tunnel syndrome S/P release: 07/09/2021 Status post total hip replacement, left (01/04/20) Treatment for avascular necrosis of the left hip. History of total replacement of right hip (~04/2018) [facility] History of right hip replacement back surgery (11/08/09) back surgery (11/17/07) back surgery (11/05/05) back fusion (11/09/12) Trigger Finger release (10/11/16) RIGHT RING FINGER/DR. POWELL Cholecystectomy (~1979) Family History Mother , AD at age 84. Diabetes Heart failure Dementia Father No problems noted. Sister Diabetes Sister , Hypothermia at age 43. No problems noted. Brother Mental disorder Brother No problems noted. Social History (Updated 09/14/24 @ 11:28 by Maggy Rankin LPN) Smoking/Tobacco Use Status: Current every day Tobacco Type: pipe Tobacco: How many years used: 40 Smoking risk assessment performed?: Yes Alcohol Intake: current Alcohol Intake frequency: a few times a week Alcohol type: beer Drug use: Occasionally Substance use type: marijuana Details: alcohol: t-3, marijuana: t-1, smoking/edibles Adopted: No Foster care: No Household members: significant other Housing: house Number of Children: 0 Communication Needs: Corrective Lenses Pets and animals: Yes Pets and animals: cat(s), dog(s) and turtle(s) Current gender identity: male What is your relationship status?: living with partner Panel score (0-1 are the most socially isolated patients): 1 What type of physical activity do you participate in: none Seatbelt use: always Helmet use: No Water heater temp set <120 deg: Yes Working smoke detector in home: Yes Fire extinguisher in home: Yes Carbon monox detector in home: Yes Firearms in home: Yes Firearms unloaded and locked: Yes Do you feel safe at home: Yes Do you feel safe in your relationship?: Yes Victim of physical abuse: No Victim of emotional abuse: No Victim of sexual abuse: No
== END 2024-11-30 10:41 | disposition home or self-care (01) ==
PROVIDERS: Emergency Provider Physician Assistant; PCP Nurse Practitioner
DX: M54.59 Other low back pain (principal)
CPT/HCPCS: 99284 ×2; 96374; 96375; 36415; 80053; 85025; J0780; J1171

== ENCOUNTER 2025-01-12 03:03 | Outpatient (CLI) | payer MEDICARE, SELFPAY ==
--- NOTE | 2025-01-12 09:55 | DI.MRI_ITS ---
Exam(s) MR CERVICAL SPINE WO EXAM: MR CERVICAL SPINE WO CLINICAL HISTORY: CERVICAL RADICULOPATHY, M54.12 WEAKNESS OF UPPER EXT, R29.898 TECHNIQUE: Multiplanar multisequence MRI of the cervical spine was performed without intravenous contrast. COMPARISON: MR MR CERVICAL SPINE WO from 01/25/2021 CR XR CERVICAL SP COMP W FLEX/EXT from 03/04/2023 FINDINGS: BONES: Vertebral body heights are maintained. Alignment is normal. Bone marrow signal intensity is within normal limits. CERVICAL CORD: Craniovertebral junction is unremarkable. The cervical cord is normal size and signal intensity. SOFT TISSUES: Unremarkable. C2-3: Disc height is maintained. No disc herniation. No evidence of neural foraminal narrowing. No significant central canal stenosis. C3-4: Mild loss of disc height. Small endplate osteophytes. Severe left and mild right neural foraminal narrowing.. No significant central canal stenosis. C4-5: Moderate loss of disc height. Broad-based osteophytes. Effacement of the anterior CSF space. Severe right neural foraminal narrowing. Mild left neural foraminal narrowing. C5-6: Moderate loss of disc height. Broad-based disc osteophytes. Mild bilateral neural foraminal narrowing. No central canal stenosis. C6-7: Moderate to severe loss of disc height. Broad-based disc osteophytes. No central canal stenosis. Mild bilateral neural foraminal narrowing. C7-T1: No disc herniation or bulge is identified. No evidence of neural foraminal narrowing. No significant central canal stenosis. IMPRESSION: Degenerative disc changes and facet degenerative changes cause multilevel neural foraminal narrowing. No disc herniation. No significant central canal stenosis. DATA REPOSITORY:
--- NOTE | 2025-01-12 10:45 | DI.MRI_ITS ---
Exam(s) MR THORACIC SPINE WO EXAM: MR THORACIC SPINE WO CLINICAL HISTORY: DORSALGIA OF THORACIC REGION, M54.6, BALANCE PROBLEM R26.89. TECHNIQUE: Multiplanar multisequence MRI of the Thoracic spine was performed. COMPARISON: CT CT CHEST PE CTA from 04/09/2023 FINDINGS: Bones: The vertebral body heights are well maintained. There are endplate osteophytes which are mainly right-sided in the mid to lower levels. The disc heights are maintained. Disc herniation. No central canal stenosis or neural foraminal narrowing.. Alignment is satisfactory. The marrow signal characteristics are unremarkable. Cord: The thoracic cord is normal size and signal intensity. No intrinsic cord lesion is present. Soft tissues: Normal. IMPRESSION: Right-sided endplate osteophytes. No evidence of disc herniation, neural foraminal narrowing or central canal stenosis. DATA REPOSITORY:
--- NOTE | 2025-01-12 11:05 | DI.CT_ITS ---
Exam(s) CT LUMBAR SPINE WO EXAM: CT LUMBAR SPINE WO CLINICAL HISTORY: s/p lumbar spinal fusion, Z98.1 s/p lumbar laminectomy, Z98.890. TECHNIQUE: Imaging Protocol: Axial computed tomography images with coronal and sagittal reformatted images were created and reviewed COMPARISON: CT LUMBAR SPINE WITHOUT CONTRAST from 05/28/[address] LUMBAR SPINE WO from 12/05/[address] CHEST PE CTA from 04/09/2023 MR MR LUMBAR SPINE WO from 08/05/2024 FINDINGS: Bones: Again noted is posterior fusion hardware at L4-5 level comprised of posterior fusion rods and bilateral intrapedicular screws at these 2 levels There is a fracture at the L2 level at the proximal spinous process level, finding which was not evident on the CT scan of December 2022. It was evident on images of MRI scan of 08/05/2024. INDIVIDUAL LEVELS: T12-L1:Chronic disc space narrowing. No disc herniation nor canal stenosis. Facet joints unremarkable. No foraminal stenosis. L1-2: Relatively preserved disc height. No disc herniation or central canal stenosis. Mild facet arthropathy. Mild foraminal stenosis L2-3: This level exhibits chronic advanced disc space narrowing. Posterior bony ridging and annular bulging. Mild central canal stenosis. Mild bilateral foraminal stenosis. L3-4: This is 1 level above the fusion. There is chronic advanced disc space narrowing again noted. There are laminectomies at this level. Difficult to assess the central canal because of the amount of beam hardening artifact from the hardware intrapedicular screws bilaterally at this level. There is posterior bony ridging which is most prominent in the exiting right neural foramen. There is mild foraminal stenosis bilaterally. L4-5: This is the fused level. No remaining disc material. Laminectomies.. Posterior fusion rods and bilateral intrapedicular screws. The intrapedicular screws at the L4 level are in satisfactory position. However, at the L5 level the intrapedicular screws appear parallel to but not within the pedicles. The right intrapedicular screw traverses across the right-side of the spinal canal at this level. The left screw is lateral to the left pedicle at this level. L5-S1: Chronic disc space narrowing. No disc herniation or central canal stenosis. There is bilateral vertical foraminal stenosis with some impingement of the exiting nerve roots bilaterally between the overlying L5 pedicles and subjacent posterior aspects of the L5 vertebral body. The visualized sacroiliac joints and sacrum appear unremarkable. PARASPINAL SOFT TISSUES: Visualized paraspinal tissues appear unremarkable. IMPRESSION: 1. Previous L4-5 fusion surgery. 2. Findings as above. It is noted that the L5 level intrapedicular screws right none parallel to but not within the pedicles. The right intrapedicular screw at the L5 level extends through the right-side of the spinal canal at this level.. The left sided screw at the L5 level is lateral to the left pedicle. These findings are similar to prior MRI of 08/05/2024. 3. There is a subacute appearing fracture at the junction of the proximal and mid aspects of the spinous process of L2. This was evident on MRI scan of 08/05/2024 but not evident on CT scan of December 2022. Other findings as above. RADIATION DOSE DELIVERED: 1,187.37mGy.cm Total DLP DATA REPOSITORY: All CT scans at this facility are submitted to the National Radiology Data Registry (NRDR) Dose Index Registry (DIR) with the [employer] (A[employer]). RADIATION OPTIMIZATION: All CT scans at this facility use at least one of these dose optimization techniques: automated exposure control; mA and/or kV adjustment per patient size (includes targeted exams where dose is matched to clinical indication); or iterative reconstruction.
== END 2025-01-12 03:23 ==
PROVIDERS: PCP Family Medicine; Visit Provider Neurological Surgery
DX: M54.12 Radiculopathy, cervical region (principal); M54.6 Pain in thoracic spine; Z98.890 Other specified postprocedural states
CPT/HCPCS: 72131; 72141; 72146

== ENCOUNTER 2025-05-19 09:29 | Outpatient (CLI) | payer MEDICARE, SELFPAY ==
--- NOTE | 2025-05-19 09:15 | RT.EKG_ITS ---
APPROVED REPORT Exam: Resting ECG Reason for Exam: preop testing Patient Location: O HR:58 bpm ECG Measurements Heart Rate 58 AXIS MI 212 P 55 QRSd 111 QRS -48 QT 389 T -20 QTc 383 Conclusion Sinus rhythm...normal P axis, V-rate 50- 99 Borderline prolonged MI interval...MI >212, V-rate 50- 90 LAD, consider left anterior fascicular block...axis(240,-40), S>R II III aVF
== END 2025-05-19 09:30 | disposition home or self-care (01) ==
LOC: DI.KIM 09:29
PROVIDERS: PCP Family Medicine; Visit Provider Emergency Medicine
DX: Z01.818 Encounter for other preprocedural examination (principal)
CPT/HCPCS: 93010

== ENCOUNTER 2025-05-27 00:22 | Outpatient (CLI) | payer MEDICARE, SELFPAY ==
[2025-05-27 10:36] LABS: Abs Immature Grans 0.02 10^3/uL (0.0-0.06); HCT 42.1 % (40.0-50.0); HGB 14.6 g/dL (13.5-17.5); Immature Grans % 0.2 %; MCH 31.3 pg (27.0-33.0); MCHC 34.7 % (32.0-36.0); MCV 90 fL (80-95); MPV 8.8 fL (8.0-11.0); Platelet Count 191 10^3/uL (130-400); RBC 4.66 10^6/uL (4.36-5.78); RDW 12.3 % (11.8-14.1); RDW-SD 41.0 fL; WBC 8.07 10^3/uL (4.4-10.8)
[2025-05-27 10:40] LABS: Glucose Negative (Negative)
[2025-05-27 10:52] LABS: INR 1.0 (0.9-1.1); PTT Activated 24.3 sec (20.6-30.2); Prothrombin Time 10.3 sec (9.1-11.1)
[2025-05-27 11:40] LABS: ALT 27 U/L (10-49); AST 26 U/L (<34); Albumin 4.9 g/dL (3.4-5.0); Alkaline Phosphatase 56 U/L (46-116); Anion Gap 7.1 mmol/L (3-11); BUN 14 mg/dL (9-23); Bilirubin, Total 0.60 mg/dL (0.2-1.2); CO2 25.9 mmol/L (20.0-31.0); Calcium 9.8 mg/dL (8.3-10.6); Chloride 107 mmol/L (98-107); Glucose 105 mg/dL (74-106); Potassium 4.4 mmol/L (3.5-5.1); Sodium 140 mmol/L (136-145); Total Protein 7.7 g/dL (5.7-8.2)
== END 2025-05-27 00:23 | disposition home or self-care (01) ==
LOC: LBO 00:22
PROVIDERS: PCP Family Medicine; Visit Provider Emergency Medicine
DX: Z01.818 Encounter for other preprocedural examination (principal); Z98.890 Other specified postprocedural states; M54.9 Dorsalgia, unspecified
CPT/HCPCS: 36415; 80053; 81003; 85025; 85610; 85730